=== PATIENT | male | born 1945 | race Caucasian/White ===

== ENCOUNTER 2018-10-28 14:30 | Outpatient (CLI) | payer OTHER ==
[~2018-10-28] VITALS: Ht 188 cm; Wt 117.9 kg
[~2018-10-28 14:30] MED LIST: FLUO15CR8 TP; GLYB5TAB6 PO; INSU100V6 SQ; LOSA50TA6 PO; MTF500T PO; SIMV80TA3 PO; TRAZ-144 PO; [UNRECOGNIZED DRUG - CODE] MC
[2018-10-28] MEDS ORDERED: INSU100I10 SQ (14:49)
[2018-10-28] MEDS ORDERED: CARB1TAB41 PO (14:49)
[2018-10-28] MEDS ORDERED: ALOG25TA2 PO (14:49)
[2018-10-28] MEDS ORDERED: TRAZ-190 PO (14:49)
[2018-10-28] MEDS ORDERED: AMAN100T PO (14:49)
[2018-10-28] MEDS ORDERED: LOSA100T57 PO (14:49)
[2018-10-28] MEDS ORDERED: ATOR80TA76 PO (14:53)
== END 2018-10-28 14:56 | disposition home or self-care (01) ==
LOC: PREOP 14:30
PROVIDERS: ATTEND Surgery
DX: Z01.818 Encounter for other preprocedural examination (principal)

== ENCOUNTER 2018-11-10 07:51 | Day surgery (SDC) | payer OTHER ==
[~2018-11-10] VITALS: Ht 188 cm; Wt 117.9 kg
[~2018-11-10 07:51] MED LIST changes: +ALOG25TA2 PO; +AMAN100T PO; +ATOR80TA76 PO; +CARB1TAB41 PO; +INSU100I10 SQ; +LOSA100T57 PO; +TRAZ-190 PO
--- OUTSIDE RECORDS SUMMARY | 2018-11-10 07:55 | XMS REPORT | Continuity of Care Document ---
Author Organization Unknown Address Unknown Allergies Active Description Code Type Severity Reaction Onset Reported/Identified Relationship to Patient Clinical Status Yes No Known Drug Allergies [id number] Drug Allergy Unknown N/A 01/17/2014 Medications There is no data. Problems Date Dx Coded Attending Type Code Diagnosis Diagnosed By 01/17/2014 ARIES EMMANUEL, ALEXANDRA Vásquez Ot 250.00 DIAB KATHIA WO COMPL, TYPE II OR UNSPEC TY 01/17/2014 ALEXANDRA CHRIS MD Ot 562.10 DIVERTICULOSIS COLON (W/O MENT OF HEMORR 01/17/2014 ALEXANDRA CHRIS MD Ot V12.72 PERSONAL HISTORY OF COLONIC POLYPS 09/20/2015 ALEXANDRA CHRIS MD Ot V72.84 EXAM PRE-OPERATIVE NOS 11/24/2015 JOSH WHATLEY MD Ot I10 ESSENTIAL (PRIMARY) HYPERTENSION 11/24/2015 JOSH WHATLEY MD Ot Z02.89 ENCOUNTER FOR OTHER ADMINISTRATIVE EXAMI 11/24/2015 JOSH WHATLEY MD Ot Z87.891 PERSONAL HISTORY OF NICOTINE DEPENDENCE 12/22/2015 ALEXANDRA CHRIS MD Ot V72.84 EXAM PRE-OPERATIVE NOS 12/22/2015 JOSH WHATLEY MD Ot I10 ESSENTIAL (PRIMARY) HYPERTENSION 12/22/2015 JOSH WHATLEY MD Ot Z02.89 ENCOUNTER FOR OTHER ADMINISTRATIVE EXAMI 12/22/2015 JOSH WHATLEY MD Ot Z87.891 PERSONAL HISTORY OF NICOTINE DEPENDENCE 10/28/2018 RENETTA ALVARADO DO Ot Z01.818 ENCOUNTER FOR OTHER PREPROCEDURAL EXAMIN Procedures There is no data. Results There is no data. Encounters ACCT No. Visit Date/Time Discharge Status Pt. Type Provider Facility Loc./Unit Complaint [id number] 11/03/2018 12:00:00 11/03/2018 23:59:59 CLS Preadmit RENETTA ALVARADO DO [facility] ENDO SCREENING [id number] 10/28/2018 14:30:00 10/28/2018 14:56:00 DIS Outpatient RENETTA ALVARADO DO [facility] PREOP COLONOSCOPY [id number] 09/20/2015 08:05:00 09/20/2015 23:59:59 CLS Outpatient CHACORTA EMMANUEL, JOSH Patel [facility] RAD [id number] 01/17/2014 08:17:00 01/17/2014 11:10:00 DIS Outpatient ALEXANDRA CHRIS MD [facility] [id number] 01/13/2014 08:18:00 01/13/2014 23:59:59 CLS Outpatient ALEXANDRA CHRIS MD [facility] PRE
[2018-11-10] MEDS ORDERED: LACTATED RINGERS 1,000 ML IV ONE (07:56)
[2018-11-10] MEDS ORDERED: LACTATED RINGERS 1,000 ML IV STA (08:26)
[2018-11-10 08:29] VITALS: BP 167/87
[2018-11-10] MEDS ORDERED: GLYCOPYRROLATE 0.2 MG/ML (ROBINUL) 2 ML VIAL ONE (09:04)
[2018-11-10] MEDS ORDERED: PROPOFOL INJECTION 0 ML IV ONE (09:11)
--- NOTE | 2018-11-10 09:33 | Progress Note-Post Operative ---
Post-Operative Progess Note Surgeon (s)/Batt Packer (s) Surgeon RENETTA ALVARADO DO Batt Packer: na Pre-Operative Diagnosis family history colon cancer Post-Operative Diagnosis ascending colon mass, colon polps Procedure & Operative Findings Date of Procedure 11/10/18 Procedure Performed/Findings colonoscopy with cold biopsies ascending colon mass, hot bx polypectomy hepatic and transverse colon polyps Anesthesia Type per automatic packer operator Estimated Blood Loss Estimated blood loss (mL): scant Specimens/Packing Specimens Removed ascending colon mass, hepatic flexure polyp, transverse colon polyp RENETTA ALVARADO DO Nov 10, 2018 09:33
--- NOTE | 2018-11-10 09:34 | Discharge Inst-Simple/Standard ---
Discharge Inst-Standard Patient Instructions/Follow Up Plan of Care/Instructions/FU: 2 weeks Nba Activity as Tolerated: Yes Discharge Diet: Regular Diet RENETTA ALVARADO DO Nov 10, 2018 09:34
[2018-11-10 09:50] VITALS: BP 126/74
[2018-11-10 10:10] VITALS: BP 146/80
--- NOTE | 2018-11-10 14:00 | Anesthesia-General Post-Op ---
MAC Patient Condition Mental Status/LOC: Same as Preop Cardiovascular: Satisfactory Nausea/Vomiting: Absent Respiratory: Satisfactory Pain: Controlled Complications: Absent Post Op Complications Complications None Follow Up Care/Instructions Patient Instructions None needed. Anesthesiology Discharge Order Discharge Order Patient was seen this morning after the procedure and he was doing well, no complaints, stable vital signs, no apparent adverse anesthesia problems. KURT HERRERA DO Nov 10, 2018 14:00
--- NOTE | 2018-11-10 15:05 | OPERATIVE REPORT ---
DATE OF SERVICE: 11/10/2018 PREOPERATIVE DIAGNOSIS: Family history of colon cancer. POSTOPERATIVE DIAGNOSES: Ascending colon mass, colon polyps. PROCEDURE: Colonoscopy with cold biopsy of the ascending colon mass and hot biopsy polypectomy of hepatic, transverse colon polyps. SURGEON: Renetta Arango DO ANESTHESIA: Per SENIOR GRADUATE ADVISOR. ESTIMATED BLOOD LOSS: Scant. COMPLICATIONS: None. INDICATIONS: The patient is a 73-year-old male with need for screening colonoscopy due to family history of colon cancer. He understands and wishes to proceed with procedure. Consent was signed and on the chart. PROCEDURE IN DETAIL: The patient was taken to the endoscopy suite, placed in left lateral recumbent position. Timeout was performed. Digital rectal exam was performed. There were no palpable polyps, masses or ulcerations. Scope was inserted into the rectum and advanced all the way to the cecum with minimal difficulty. Prep was adequate. There were no polyps, masses or ulcerations in the cecum. Just above the cecum, a large flat mass present. Multiple cold biopsies were obtained of hard nonmobile mass in ascending colon. Scope was then continued to slowly retracted back and hepatic flexure, small polyp was present, which hot biopsy polypectomy was performed. Scope was continued to be slowly retracted back, which another small polyp was encountered, which hot biopsy polypectomy was performed. Scope was continued to be slowly retracted back to the remainder of the transverse colon, descending colon and sigmoid colon without finding any other polyps, masses or ulcerations. Once in the rectum, scope was retroflexed noting no other pathology. Scope was returned to its normal position, slowly withdrawn until completely removed. The patient tolerated procedure well without any complications and taken to recovery room in stable condition. RECOMMENDATIONS: The patient will follow up in office in two weeks to discuss pathology results. The patient will need a right colon resection in order to remove the mass. We will discuss outpatient followup visit. Job ID: [id number] DocumentID: [id number] Dictated Date: 11/10/2018 09:39:13 Farm Hand Date: 11/10/2018 15:04:30 Dictated By: RENETTA ARANGO DO [facility]
== END 2018-11-10 10:35 | disposition home or self-care (01) ==
LOC: ENDO 07:51
PROVIDERS: ATTEND Surgery
DX: Z12.11 Encounter for screening for malignant neoplasm of colon (principal); D12.2 Benign neoplasm of ascending colon; D12.3 Benign neoplasm of transverse colon; Z80.0 Family history of malignant neoplasm of digestive organs; E11.9 Type 2 diabetes mellitus without complications; I10 Essential (primary) hypertension; E78.5 Hyperlipidemia, unspecified; M19.91 Primary osteoarthritis, unspecified site; G20 Parkinson's disease; Z79.4 Long term (current) use of insulin; Z79.899 Other long term (current) drug therapy
CPT/HCPCS: 82962; 88305

== ENCOUNTER 2018-12-08 14:01 | Outpatient (CLI) | payer OTHER ==
[~2018-12-08] VITALS: Ht 188 cm; Wt 115.7 kg
[~2018-12-08 14:01] MED LIST changes: -ASCO-262 PO; -CHOL20003 PO; -FLUT16SP22 NS; -GLIP10TA13 PO; -HYDR12.56 PO; -NICO4GUM31 BC; -SILD100T67 PO; -ST.300CA PO
[2018-12-08 14:14] VITALS: BP 146/67
[2018-12-08 14:59] LABS: BASOPHILS % (AUTO) 0 % (0-10); EOSINOPHILS # (AUTO) 0.1 10^3/uL (0.0-0.3); EOSINOPHILS % (AUTO) 1 % (0-10); HEMATOCRIT 36 % (40-54); LYMPHOCYTES # (AUTO) 1.9 X 10^3 (1.0-4.0); LYMPHOCYTES % (AUTO) 23 % (12-44); MEAN CORPUSCULAR HEMOGLOBIN 25 PG (25-34); MEAN CORPUSCULAR HGB CONC 31 G/DL (32-36); MEAN CORPUSCULAR VOLUME 80 FL (80-99); MEAN PLATELET VOLUME 9.5 FL (7.4-10.4); MONOCYTES # (AUTO) 0.5 X 10^3 (0.0-1.0); MONOCYTES % (AUTO) 7 % (0-12); NEUTROPHILS # (AUTO) 5.7 X 10^3 (1.8-7.8); NEUTROPHILS % (AUTO) 69 % (42-75); PLATELET COUNT 311 10^3/uL (130-400); RED CELL DISTRIBUTION WIDTH 14.4 % (10.0-14.5); WHITE BLOOD COUNT 8.2 10^3/uL (4.3-11.0)
== END 2018-12-08 14:45 | disposition home or self-care (01) ==
LOC: PREOP 14:01
PROVIDERS: ATTEND Surgery
DX: Z01.812 Encounter for preprocedural laboratory examination (principal); C18.9 Malignant neoplasm of colon, unspecified
CPT/HCPCS: 36415; 85025; 87081

== ENCOUNTER → 2018-12-08 | Outpatient (CLI) | payer OTHER ==
[~2018-12-08] MED LIST changes: +ASCO-262 PO; +CHOL20003 PO; +FLUT16SP22 NS; +GLIP10TA13 PO; +HYDR12.56 PO; +NICO4GUM31 BC; +SILD100T67 PO; +ST.300CA PO
--- NOTE | 2018-12-08 14:57 | Diagnostic Imaging Report ---
INDICATION: Adenocarcinoma of the colon, initial staging. TECHNIQUE: Serum blood glucose level at the time of injection is 125 mg/dL. Patient was administered 13.0 mCi F-18 FDG intravenously in the left forearm and PET imaging from the top of skull through the mid thighs was performed. Noncontrast CT was also performed for attenuation correction and anatomic correlation. COMPARISON: No prior studies are available for comparison. FINDINGS: There is symmetric activity throughout the brain. Soft tissues of the neck are unremarkable. No suspicious hypermetabolism in the mediastinum or ai is seen. Pulmonary parenchyma is unremarkable. Imaging through the abdomen and pelvis demonstrates physiologic activity within the GI and tracts. No suspicious hypermetabolism is seen. There is no evidence of hypermetabolic abdominal or pelvic lymphadenopathy. IMPRESSION: Unremarkable PET/CT study. Dictated by: Dictated on workstation # [id number]
== END ==
LOC: RAD 10:23
PROVIDERS: ATTEND Surgery
DX: C18.9 Malignant neoplasm of colon, unspecified (principal)

== ENCOUNTER 2018-12-10 09:19 | Inpatient (IN) | payer OTHER ==
[~2018-12-10] VITALS: Ht 188 cm; Wt 115.7 kg
[2018-12-10] VITALS (11 sets, daily range): BP systolic 128–177; BP diastolic 73–85
[2018-12-10] MEDS ORDERED: LACTATED RINGERS 1,000 ML IV PRN (09:21)
--- OUTSIDE RECORDS SUMMARY | 2018-12-10 09:24 | XMS REPORT | Continuity of Care Document ---
Author Organization Unknown Address Unknown Allergies Active Description Code Type Severity Reaction Onset Reported/Identified Relationship to Patient Clinical Status Yes No Known Drug Allergies [id number] Drug Allergy Unknown N/A 11/10/2018 Medications There is no data. Problems Date [...] Ot Z01.818 ENCOUNTER FOR OTHER PREPROCEDURAL EXAMIN 11/16/2018 RENETTA ALVARADO DO Ot D12.2 BENIGN NEOPLASM OF ASCENDING COLON 11/16/2018 RENETTA ALVARADO DO Ot D12.3 BENIGN NEOPLASM OF TRANSVERSE COLON 11/16/2018 RENETTA ALVARADO DO Ot E11.9 TYPE 2 DIABETES MELLITUS WITHOUT COMPLIC 11/16/2018 RENETTA ALVARADO DO Ot E78.5 HYPERLIPIDEMIA, UNSPECIFIED 11/16/2018 ALVARADO RENETTA Cresencio Ot G20 PARKINSON'S DISEASE 11/16/2018 ALVARADO RENETTA Ot I10 ESSENTIAL (PRIMARY) HYPERTENSION 11/16/2018 ALVARADO RENETTA Cresencio Ot M19.91 PRIMARY OSTEOARTHRITIS, UNSPECIFIED SITE 11/16/2018 RENETTA ALVARADO DO Cresencio Ot Z12.11 ENCOUNTER FOR SCREENING FOR MALIGNANT NE 11/16/2018 ALVARADO RENETTA ARELLANO Ot Z79.4 SENIOR CARE (CURRENT) USE OF INSULIN 11/16/2018 ALVARADO RENETTA Ot Z79.899 OTHER SENIOR CARE (CURRENT) DRUG THERAPY 11/16/2018 ALVARADO RENETTA ARELLANO Cresencio Ot Z80.0 FAMILY HISTORY OF MALIGNANT NEOPLASM OF Procedures There is no data. Results Test Result Range Capillary blood glucose measurement by glucometer (mass/volume) - 11/10/18 08:10 Capillary blood glucose measurement by glucometer (mass/volume) 176 mg/dL 70-110 Complete blood count (CBC) with automated white blood cell (WBC) differential - 12/08/18 14:45 Blood leukocytes automated count (number/volume) 8.2 10*3/uL 4.3-11.0 Blood erythrocytes automated count (number/volume) 4.48 10*6/uL 4.35-5.85 Venous blood hemoglobin measurement (mass/volume) 11.0 g/dL 13.3-17.7 Blood hematocrit (volume fraction) 36 % 40-54 Automated erythrocyte mean corpuscular volume 80 [foz_us] 80-99 Automated erythrocyte mean corpuscular hemoglobin (mass per erythrocyte) 25 pg 25-34 Automated erythrocyte mean corpuscular hemoglobin concentration measurement (mass/volume) 31 g/dL 32-36 Automated erythrocyte distribution width ratio 14.4 % 10.0- 14.5 Automated blood platelet count (count/volume) 311 10*3/uL 130-400 Automated blood platelet mean volume measurement 9.5 [foz_us] 7.4-10.4 Automated blood neutrophils/100 leukocytes 69 % 42-75 Automated blood lymphocytes/100 leukocytes 23 % 12-44 Blood monocytes/100 leukocytes 7 % 0-12 Automated blood eosinophils/100 leukocytes 1 % 0-10 Automated blood basophils/100 leukocytes 0 % 0-10 Blood neutrophils automated count (number/volume) 5.7 10*3 1.8-7.8 Blood lymphocytes automated count (number/volume) 1.9 10*3 1.0-4.0 Blood monocytes automated count (number/volume) 0.5 10*3 0.0- 1.0 Automated eosinophil count 0.1 10*3/uL 0.0-0.3 Automated blood basophil count (count/volume) 0.0 10*3/uL 0.0-0.1 Methicillin resistant Staphylococcus aureus (MRSA) screening culture - 12/08/18 14:45 Methicillin resistant Staphylococcus aureus (MRSA) screening culture NEG NRG Encounters ACCT No. Visit Date/Time Discharge Status Pt. Type Provider Facility Loc./Unit Complaint [id number] 12/08/2018 14:01:00 12/08/2018 14:45:00 DIS Outpatient RENETTA ALVARADO DO [facility] PREOP COLON CANCER [id number] 11/10/2018 07:51:00 11/10/2018 10:35:00 DIS Outpatient RENETTA ALVARADO DO [facility] ENDO SCREENING [id number] 10/28/2018 14:30:00 10/28/2018 14:56:00 DIS Outpatient RENETTA ALVARADO DO [facility] PREOP COLONOSCOPY [id number] 09/20/2015 08:05:00 09/20/2015 23:59:59 CLS Outpatient JOSH WHATLEY MD [facility] RAD [id number] 01/17/2014 08:17:00 01/17/2014 11:10:00 DIS Outpatient ALEXANDRA CHRIS MD [facility] [id number] 01/13/2014 08:18:00 01/13/2014 23:59:59 CLS Outpatient ALEXANDRA CHRIS MD [facility] PREOP [id number] 12/10/2018 11:20:00 PEN Preadmit RENETTA ALVARADO DO COLON CANCER [id number] 12/08/2018 10:23:00 ACT Outpatient RENETTA ALVARADO DO [facility] RAD ADENO CARCINOMA OF COLON
[2018-12-10] MEDS ORDERED: BUP/EPI 0.5% 1:200,000 (SENSORCAINE) 30 ML VIAL ONE (09:25)
[2018-12-10] MEDS ORDERED: ceFAZolin 2 GM/50 ML NS 50 ML IV ONE (09:30)
[2018-12-10] MEDS ORDERED: metroNIDAZOLE 500MG/100ML IVPB 100 ML IV ONE (09:30)
--- NOTE | 2018-12-10 09:47 | Progress Note-Pre Operative ---
Pre-Operative Progress Note H&P Reviewed The H&P was reviewed, patient examined and no changes noted. Date Seen by Provider: Dec 10, 2018 Time Seen by Provider: 09:46 Date H&P Reviewed: Dec 10, 2018 Time H&P Reviewed: 09:47 Pre-Operative Diagnosis: right colon cancer RENETTA ALVARADO DO Dec 10, 2018 09:47
[2018-12-10] MEDS ORDERED: SEVOFLURANE (ULTANE) 15 ML INHAL SOLN ONE (11:04)
[2018-12-10] MEDS ORDERED: MIDAZOLAM 2 MG/2 ML (VERSED) VIAL ONE (11:04)
[2018-12-10] MEDS ORDERED: LIDOCAINE PF 2% 5 ML (XYLOCAINE) VIAL ONE (11:04)
[2018-12-10] MEDS ORDERED: ROCURONIUM 10 MG/ML 5 ML SYRINGE IV ONE ×2 (11:04→12:08)
[2018-12-10] MEDS ORDERED: ONDANSETRON 4 MG/2 ML (SDV) Z0FRAN ONE (11:04)
[2018-12-10] MEDS ORDERED: proPOfol 200 MG/20 ML (DIPRIVAN) VIAL IV ONE (11:04)
[2018-12-10] MEDS ORDERED: fentaNYL INJECTION 100 MCG/2 ML AMP ONE (11:04)
[2018-12-10] MEDS ORDERED: fentaNYL INJECTION 250 MCG/5 ML AMP ONE (12:07)
[2018-12-10] MEDS ORDERED: BUPIVACAINE 0.5% 30 ML (SENSORCAINE) VIAL ONE (12:56)
[2018-12-10] MEDS ORDERED: morphine INJ 10 MG/ML 1ML (SYR OR VIAL) IVP ONE (13:30)
[2018-12-10] MEDS ORDERED: ONDANSETRON 4 MG/2 ML (SDV) Z0FRAN IVP PRN (13:30)
[2018-12-10] MEDS ORDERED: HYDROmorphone 2 MG/ML VIAL (DILAUDID) IV ONE (13:30)
[2018-12-10] MEDS ORDERED: morphine INJ 10 MG/ML 1ML (SYR OR VIAL) ONE (13:33)
[2018-12-10] MEDS ORDERED: HYDROmorphone 2 MG/ML VIAL (DILAUDID) ONE (13:50)
--- NOTE | 2018-12-10 14:25 | NUR ---
KUHNSTEFFANIE admitted to room 425, with an admitting diagnosis of colon resection, on 12/10/18 from OR via stretcher, accompanied by BILLY Pablo. STEFFANIE KUHN introduced to surroundings, call light, bed controls, phone, TV, temperature control, lights, meal times, smoking policy, visitor policy, side rail policy, bathrooms and showers. Patient Rights given to patient in the handbook. STEFFANIE KUHN verbalizes understanding that [facility] is not responsible for the loss or damage to any personal effects or valuables that are kept in the patients possession during their hospitalization. STEFFANIE KUHN verbalizes understanding of Interdisciplinary Patient Education. Patient was informed about the Rapid Response Team and its purpose. Report received from BILLY Pablo. This RN will assume pt care at this time.
--- NOTE | 2018-12-10 14:46 | Progress Note-Post Operative ---
Post-Operative Progess Note Surgeon (s)/Repairer Wood Furniture (s) Surgeon RENETTA ALVARADO DO Repairer Wood Furniture: Dr. Cameron Pre-Operative Diagnosis right colon cancer Post-Operative Diagnosis same Procedure & Operative Findings Date of Procedure 12/10/18 Procedure Performed/Findings lap hand assisted right colon resection with mobilization of hepatic flexure. Anesthesia Type gen Estimated Blood Loss Estimated blood loss (mL): min Specimens/Packing Specimens Removed right colon RENETTA ALVARADO DO Dec 10, 2018 14:46
[2018-12-10] MEDS ORDERED: morphine INJ 10 MG/ML 1ML (SYR OR VIAL) IVP PRN (15:00)
[2018-12-10] MEDS ORDERED: ONDANSETRON 4 MG/2 ML (SDV) Z0FRAN IV PRN (15:00)
--- NOTE | 2018-12-10 15:20 | NUR ---
DR NEAL NOTIFIED BY THIS RN FOR A MEDICAL CONSULT FROM DR ALVARADO.
[2018-12-10] MEDS: HYDROcodone/APAP 5 MG/325 MG (LORTAB) TAB PO PRN (15:42)
[2018-12-10] MEDS: LACTATED RINGERS 1,000 ML IV SCH ×2 (15:43→22:57)
[2018-12-10] MEDS ORDERED: morphine INJ 4 MG/ML 1 ML (VIAL/SYRINGE) IV PRN (15:45)
[2018-12-10] MEDS ORDERED: ASCO-262 PO (16:09)
[2018-12-10] MEDS ORDERED: CHOL20003 PO (16:09)
[2018-12-10] MEDS ORDERED: ST.300CA PO (16:09)
[2018-12-10] MEDS ORDERED: HYDR12.56 PO (16:09)
--- NOTE | 2018-12-10 16:32 | NUR ---
SPOKE WITH THE PATIENT ABOUT HIS MEDICATIONS. THEY WERE UPDATED IN PREOP HOWEVER HE TOLD THE NURSE HE FELT HIS LIST WAS MISSING SOME. HE GETS HIS MEDS FROM THE [facility]. I HAVE SENT A FAX REQUEST TO [facility] FOR A LIST OF MEDS AND CALLED THE [facility], THE FAX TO THEM KEEPS FAILING. THEY ARE CLOSED FOR THE DAY BUT I WILL VERIFY IT IN THE MORNING AFTER RECORDS ARE REVIEWED. HE STATES HE TAKES VITAMIN C DAILY, VITAMIN D DAILY, AND LULU'S WORT HS NEEDED. I ADDED THEM TO THE MED REC AT THIS TIME. Addendum: 12/11/18 at 1339 by KRZYSZTOF CARMEN [facility] RECEIVED MED LIST FROM [facility] AT THIS TIME. THERE WERE A COUPLE OF MEDICATIONS ON THAT LIST THAT WERE NOT ON THE MED REC, I VERIFIED WITH THE PATIENT AND UPDATED THE MED REC ACCORDINGLY. [facility]: 12-09-18 GLIPIZIDE 10MG BID #180 12-07-18 LOSARTAN 100MG DAILY #90 12-04-18 ALOGLIPTIN 25MG DAILY #90 11-26-18 FLUTICASONE NASAL 2 SPRAYS NS DAILY (USES PRN) 11-23-18 INSULIN GLARGINE 45 UNITS HS #4 (STATES HE USES 56 UNITS HS) 11-03-18 SILDENAFIL CITRATE 100MG UD #12 10-20-18 CARBIDOPA LEVODOPA SA 50-200MG QID #360 10-14-18 ATORVASTATIN 80MG 1/2 HS #45 09-11-18 NICOTINE 4MG LOZENGE PRN #162 08-25-18 AMANTADINE 100MG 1/2 BID #90 (NEWER ONE ALSO LISTED BUT RELEASE DATE IS BLANK) 12-16-17 TRAZODONE 100MG 2 HS #180 [facility] FILLED: 11-04-18 HCTZ 12.5MG DAILY #90 OTC MEDS: VITAMIN C DAILY VITAMIN D3 [address] [facility] PRN Addendum: 12/16/18 at 1012 by KRZYSZTOF CARMEN [facility] PATIENT ONLY TAKES 1 TRAZODONE, TWO IS TOO MUCH. HE ALSO USES 55 UNITS OF LANTUS NOT 56 LIKE REPORTED ABOVE.
[2018-12-10] MEDS: ceFAZolin INJECTION 1,000 MG in WATER (STERILE) FOR INJECTION 10 ML IV SCH (17:41)
[2018-12-10] MEDS: metroNIDAZOLE 500MG/100ML IVPB 100 ML IV SCH (17:41)
[2018-12-11 00:33] VITALS: BP 135/75
[2018-12-11] MEDS: ceFAZolin INJECTION 1,000 MG in WATER (STERILE) FOR INJECTION 10 ML IV SCH ×2 (02:20→12:15)
[2018-12-11] MEDS: metroNIDAZOLE 500MG/100ML IVPB 100 ML IV SCH ×2 (02:44→12:15)
[2018-12-11] MEDS: ONDANSETRON 4 MG/2 ML (SDV) Z0FRAN IV PRN ×2 (02:44→07:45)
[2018-12-11 04:00] VITALS: BP 172/82
--- NOTE | 2018-12-11 05:19 | OPERATIVE REPORT ---
DATE OF SERVICE: 12/10/2018 PREOPERATIVE DIAGNOSIS: Right colon cancer. POSTOPERATIVE DIAGNOSIS: Right colon cancer. PROCEDURE: Laparoscopic hand-assisted right colon resection with mobilization of the hepatic flexure. SURGEON: Arian Arango DO EXTRUSION TECHNICIAN: Christian Cameron DO, assisted in retraction, dissection and closure. ANESTHESIA: General. ESTIMATED BLOOD LOSS: Minimal. COMPLICATIONS: None. INDICATIONS: The patient is a 73-year-old male, who recently diagnosed with right colon cancer. He understands risks and benefits of procedure and wished to proceed with procedure. Consent was signed and on the chart. DESCRIPTION OF PROCEDURE: The patient was taken to the operating suite. He was prepped and draped in sterile fashion. Surgical pause was performed. Midline incision was made for hand-port placement on the abdomen. The subcutaneous tissues and the fascia were then divided just large enough for the hand port to be placed. A 12 mm trocar was placed in subxiphoid region under open visualization. Once these 2 ports were placed, the abdomen was then insufflated. Under direct visualization of the laparoscope, a 5 mm trocar was placed in the suprapubic region. The right colon was then grasped and started to be retracted and was mobilized along the white line of Toldt, mobilizing the colon to its midline position. The hepatic flexure had to be taken down as well, which was taken down with a LigaSure. Once the right colon and hepatic flexure were mobilized, the colon, small bowel were then brought out through the hand-port incision and an Endo-JUAN 75 stapler was fired across the distal ileum and also the colon distal to the colon mass that was palpable. LigaSure was then used to divide the mesentery from the colon. An ileocolonic anastomosis was in a [id number] fashion was then created in the usual fashion using a linear JUAN-75 blue sangeetha. Hemostasis was achieved. The anastomosis was then placed back within the abdomen. Crotch stitches were placed as well. The fascia of the hand port was then closed using 1-0 looped PDS. The abdomen was reinsufflated, which demonstrated adequate closure. The abdomen was inspected. There are no other pathology except for a cyst that appeared simple on the right lobe of the liver. The abdomen was then desufflated and the trocars were removed. The skin was then closed using sangeetha. The abdomen washed and dried and sterile bandages were applied. The patient tolerated procedure well without any complications, taken to recovery room in stable condition. Job ID: [id number] DocumentID: [id number] Dictated Date: 12/10/2018 22:44:48 Floor Trader Date: 12/11/2018 05:19:15 Dictated By: DO CATHERINE RICH
[2018-12-11 06:50] LABS: BASOPHILS % (AUTO) 0 % (0-10); EOSINOPHILS % (AUTO) 0 % (0-10); HEMATOCRIT 34 % (40-54); HEMOGLOBIN 10.2 G/DL (13.3-17.7); LYMPHOCYTES # (AUTO) 0.8 X 10^3 (1.0-4.0); LYMPHOCYTES % (AUTO) 6 % (12-44); MEAN CORPUSCULAR HEMOGLOBIN 24 PG (25-34); MEAN CORPUSCULAR HGB CONC 30 G/DL (32-36); MEAN CORPUSCULAR VOLUME 80 FL (80-99); MEAN PLATELET VOLUME 9.6 FL (7.4-10.4); MONOCYTES # (AUTO) 0.7 X 10^3 (0.0-1.0); MONOCYTES % (AUTO) 5 % (0-12); NEUTROPHILS # (AUTO) 11.2 X 10^3 (1.8-7.8); NEUTROPHILS % (AUTO) 89 % (42-75); PLATELET COUNT 302 10^3/uL (130-400); RED CELL DISTRIBUTION WIDTH 14.9 % (10.0-14.5); WHITE BLOOD COUNT 12.6 10^3/uL (4.3-11.0)
[2018-12-11] MEDS: LACTATED RINGERS 1,000 ML IV SCH (07:05)
[2018-12-11 07:06] LABS: ALANINE AMINOTRANSFERASE 18 U/L (0-55); ALBUMIN 3.1 GM/DL (3.2-4.5); ALKALINE PHOSPHATASE 90 U/L (40-136); BILIRUBIN,TOTAL 0.5 MG/DL (0.1-1.0); BUN/CREATININE RATIO 14; CALCIUM 9.3 MG/DL (8.5-10.1); CARBON DIOXIDE 18 MMOL/L (21-32); CHLORIDE 105 MMOL/L (98-107); CREATININE SERUM 1.01 MG/DL (0.60-1.30); GFR ESTIMATED > 60; GLUCOSE 248 MG/DL (70-105); POTASSIUM 4.3 MMOL/L (3.6-5.0); SODIUM 137 MMOL/L (135-145); TOTAL PROTEIN 6.3 GM/DL (6.4-8.2)
[2018-12-11 07:51] VITALS: BP 152/77
[2018-12-11] MEDS ORDERED: PROMETHAZINE INJ 25 MG/ML (PHENERGAN) AMP IVP PRN (09:00)
[2018-12-11] MEDS: PANTOPRAZOLE 40 MG (PROTONIX) VIAL IV SCH (09:31)
--- NOTE | 2018-12-11 09:54 | Consultation - Hospitalist ---
HPI History of Present Illness: HPI/Chief Complaint CC: Medical management following right colectomy History of present illness: This is a 73-year-old white male [facility] and the [place], [place] who had an uncomplicated right colectomy due to colon cancer by Dr. Arango and Dr. Arteaga. I think consulted for medical management. Currently his abdominal pain is much better he is sitting up in a chair and his family is at the bedside. He denied shortness of breath or chest pain and I review his labs and vital signs. I reviewed his past medical history and home medications. He has been using the incentive spirometer. He does have a Oglesby catheter in place. Source: patient Exam Limitations: no limitations Date Seen 12/11/18 Attending Physician Arian Arango DO PCP Dania Santos MD Referring Physician Date of Admission Dec 10, 2018 at 09:19 Home Medications & Allergies Home Medications Reviewed patient Home Medication Reconciliation performed by pharmacy medication reconciliations breeding technician and/or nursing. Patients Allergies have been reviewed. 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[email or web address]) Alcohol Use: Denies Use Recreational Drug Use: No Smoking Status: Former Smoker Physical Abuse Screen: No Sexual Abuse: No Recent Foreign Travel: No Contact w/other who traveled: No Recent Hopitalizations: No Recent Infectious Disease Expo: No Immunizations Up To Date Pediatric: No Date of Pneumonia Vaccine: Dec 09, 2015 Seasonal Allergies Seasonal Allergies: Yes Past Medical History Surgeries: Abdominal, Tonsillectomy Currently Using CPAP: No Currently Using BIPAP: No Cardiac: High Cholesterol, Hypertension Neurological: Parkinson's Disease Musculoskeletal: Arthritis Endocrine: Diabetes, Non-Insulin dep Cancer: Colon History of Blood Disorders: No Family History Cardiovascular disease 19 FATHER Completed stroke 19 MOTHER Hypertension 19 FATHER 19 MOTHER Myocardial infarction 19 FATHER Psychosocial problem 19 FATHER Respiratory disorder G8 BROTHER Thyroid disease 19 MOTHER Review of Systems Constitutional: see HPI, weakness EENTM: no symptoms reported Respiratory: no symptoms reported Cardiovascular: no symptoms reported Gastrointestinal: abdominal pain Genitourinary: other (oglesby in place) Skin: no symptoms reported Psychiatric/Neurological: No Symptoms Reported All Other Systems Reviewed Negative Unless Noted: Yes Physical Exam Physical Exam Vital Signs Vital Signs - First Documented 12/10/18 09:30 Temp 96.9 Pulse 83 Resp 18 B/P (MAP) 154/81 (105) Pulse Ox 96 O2 Delivery Room Air Capillary Refill : Height, Weight, BMI Height: 6'2.00" Weight: 255lbs. 0.0oz. 115.119988qo; 32.7 BMI Method: General Appearance: No Apparent Distress, WD/WN, Chronically ill, Obese Eyes: Bilateral Eye Normal Inspection, Bilateral Eye PERRL HEENT: PERRL/EOMI, Normal ENT Inspection, Pharynx Normal Neck: Full Range of Motion, Normal Inspection, Non Tender, Supple, Carotid Bruit Respiratory: Chest Non Tender, Lungs Clear, Normal Breath Sounds, No Accessory Muscle Use, No Respiratory Distress Cardiovascular: Regular Rate, Rhythm, No Edema, No Gallop, No JVD, No Murmur, Normal Peripheral Pulses Gastrointestinal: No Organomegaly, No Pulsatile Mass, Abnormal Bowel Sounds Back: Normal Inspection, No CVA Tenderness, No Vertebral Tenderness Extremity: Normal Capillary Refill, Normal Inspection, Normal Range of Motion, Non Tender, No Calf Tenderness, No Pedal Edema Neurologic/Psychiatric: Alert, Oriented x3, No Motor/Sensory Deficits, Normal Mood/Affect Skin: Normal Color, Warm/Dry Lymphatic: No Adenopathy Results Results/Procedures Labs Laboratory Tests 12/11/18 06:21 Patient resulted labs reviewed. Assessment/Plan Assessment and Plan Assess & Plan/Chief Complaint Assessment: Status post uncomplicated right colectomy due to colon cancer Parkinson's Hypertension Hyperlipidemia Diabetes mellitus Anemia postop Leukocytosis Plan: Pain control IV fluids Oglesby catheter DC once approved by surgery Ambulation Monitor closely Diagnosis/Problems Diagnosis/Problems (1) S/P right colectomy Status: Acute (2) Parkinsons disease Status: Chronic (3) Hypertension Qualifiers: Hypertension type: essential hypertension Qualified Codes: I10 - Essential (primary) hypertension (4) Hyperlipidemia Status: Chronic Qualifiers: Hyperlipidemia type: mixed hyperlipidemia Qualified Codes: E78.2 - Mixed hyperlipidemia (5) Diabetes mellitus Status: Chronic Qualifiers: Diabetes mellitus type: type 2 Diabetes mellitus meterman insulin use: without penitentiary use Diabetes mellitus complication status: without complication Qualified Codes: E11.9 - Type 2 diabetes mellitus without complications (6) Anemia due to acute blood loss Status: Acute (7) Leukocytosis Status: Acute Qualifiers: Leukocytosis type: leukemoid reaction Qualified Codes: D72.823 - Leukemoid reaction (8) Colon cancer Status: Chronic Qualifiers: Colon location: ascending Qualified Codes: C18.2 - Malignant neoplasm of ascending colon Clinical Quality Measures DVT/VTE Risk/Contraindication: Risk Factor Score Per Nursin RFS Level Per Nursing on Admit: 4+=Very High SAMSON NEAL DO Dec 11, 2018 09:54
--- NOTE | 2018-12-11 09:57 | NUR ---
NOTE THAT PT HAD REQUESTED THE IV PHENERGAN 12.5 MG BUT AFTER WORKING WITH P.T. AND BURPING SEVERAL TIMES HE VOICED DID NOT WANT THE IV PHENERGAN -- THIS RN WASTED IT
--- NOTE | 2018-12-11 10:17 | Physical Therapy Evaluation ---
PT Evaluation-General Medical Diagnosis Admission Date Dec 10, 2018 at 09:19 Medical Diagnosis: colon cancer Onset Date: Dec 10, 2018 Therapy Diagnosis Therapy Diagnosis: debility Height/Weight Height (Feet): 6 Height (Inches): 2.00 Weight (Pounds): 255 Weight (Ounces): 0.0 Precautions Precautions/Isolations: Fall Prevention Referral Physician: Nba Reason for Referral: Evaluation/Treatment Medical History Current History s/p colon resection Reviewed History: Yes Social History Home: Single Level Current Living Status: Spouse Prior/Core FIM Prior Level of Function Therapy Code Descriptions/Definitions Functional [place] Measure: 0=Not Assessed/NA 4=Minimal Assistance 1=Total Assistance 5=Supervision or Setup 2=Maximal Assistance 6=Modified [place] 3=Moderate Assistance 7=Complete [place] Therapy Quality Codes: 6 Independent with activity with or without an assistive device 5 Patient requires set up or clean up by helper. Patient completes activity by themselves 4 Supervision or touching assist (CGA). [place] provide cues , steadying assist 3 The helper provides less than half the effort to complete the activity 2 The helper provides more than half the effort to complete the activity 1 Dependent. The helper does all the effort to complete an activity 7 Patient refused to complete or attempt activity 9 The patient did not perform the activity before the current illness or injury 88 Not attempted due to Medical conditions or safety concerns Functional Abilities and Goals: Independent: Patient completed the activities by him/herself, with or without an assistive device, with no assistance from a helper. Needed Some Help: Patient needed partial assistance from another person to complete activities. Dependent: A helper completed the activities for the patient. Unknown: Not Applicable: Bed Mobility: 7 Transfers (B,C,W/C) (FIM): 7 Gait: 7 Indoor Mobility (Ambulation): Independent Stairs: Independent Prior Devices Use: None PT Evaluation-Current Subjective Patient is very agreeable to participate with therapy. Spouse present. Pain Numeric Pain Scale: 5-Moderate Pain Location: Lower Location Body Site: Abdomen Pain Description: Acute Objective Patient Orientation: Normal For Age Problem Solving: Good ROM/Strength ROM Lower Extremities bilateral LE WFL Strength Lower Extremities 4/5 grossly bilaterally Integumentary/Posture Integumentary refer to nursing notes Bowel Incontinence: No Bladder Incontinence: Campos Cath Posture WFL Neuromuscular (Tone, Coordination, Reflexes) grossly intact Sensory Vision: Functional Hearing: Functional Sensation Right Lower Extremit: Intact Sensation Left Lower Extremity: Intact Transfers Therapy Code Descriptions/Definitions Functional [place] Measure: 0=Not Assessed/NA 4=Minimal Assistance 1=Total Assistance 5=Supervision or Setup 2=Maximal Assistance 6=Modified [place] 3=Moderate Assistance 7=Complete [place] Transfers (B, C, W/C) (FIM): 6 Scootin Rollin Supine to/from Sit: 6 Sit to/from Stand: 6 Gait Mode of Locomotion: Walk Anticipated Mode of Locomotion: Walk Gait (FIM): 6 Distance (FIM): 3=150 ft Distance: 300' Gait Level of Assist: 6 Gait Assistive Device: FWW Comments/Gait Description safe and functional Balance Sitting Static: Normal Sitting Dynamic: Normal Standing Static: Normal Standing Dynamic: Normal Assessment/Needs 73 y.o. male, is currently at [facility] with all gross motor skills and does not require skilled therapy intervention. PT instructed patient and nursing to ambulate PRN in hallway with family. Rehab Potential: Fair PT Plan Treatment/Plan Treatment Plan: Discontinue PT, goals met Treatment Plan: Other Treatment Duration: Dec 11, 2018 Frequency: 1 time per week Estimated Hrs Per Day: .25 hour per day Patient and/or Family Agrees t: Yes Discharge Recommendations Therapy D/C Recommendations: Home w/ Family Support Time/GCodes Time In: 925 Time Out: 940 Total Billed Treatment Time: 15 Total Billed Treatment 1 visit EVLowC 15 min VESTA VELASQUEZ PT Dec 11, 2018 10:17
[2018-12-11 12:36] VITALS: BP 128/73
[2018-12-11] MEDS ORDERED: NICO4GUM31 BC (13:26)
[2018-12-11] MEDS ORDERED: GLIP10TA13 PO (13:26)
[2018-12-11] MEDS ORDERED: SILD100T67 PO (13:26)
[2018-12-11] MEDS ORDERED: FLUT16SP22 NS (13:26)
--- NOTE | 2018-12-11 13:39 | Anesthesia-General Post-Op ---
General Patient Condition Mental Status/LOC: Same as Preop Cardiovascular: Satisfactory Nausea/Vomiting: Absent Respiratory: Satisfactory Pain: Controlled Complications: Absent Post Op Complications Complications None Follow Up Care/Instructions Patient Instructions None needed. Anesthesia/Patient Condition Patient Condition Patient is doing well, no complaints, stable vital signs, no apparent adverse anesthesia problems. No complications reported per nursing. SHERRY SANCHEZ CRNA Dec 11, 2018 13:39
--- NOTE | 2018-12-11 15:10 | Progress Note - Surgery ---
Subjective Date Seen by a Provider: Dec 11, 2018 Time Seen by a Provider: 08:25 Subjective/Events-last exam Patient having reflux that is severe he states. Some nausea as well. Abdomen not having any significant pain. Using IS. Denies fever sweats chills shortness of breath or chest pain. Objective Exam Vital Signs Date Time Temp Pulse Resp B/P (MAP) Pulse Ox O2 Delivery O2 Flow Rate FiO2 12/11/18 12:36 99.9 89 18 128/73 (91) 91 Room Air 12/11/18 09:00 Room Air 12/11/18 07:51 97.8 90 18 152/77 (102) 93 Room Air 12/11/18 04:00 98.8 88 20 172/82 (112) 93 Room Air 12/11/18 00:33 98.9 89 20 135/75 (95) 91 Room Air 12/10/18 22:50 Room Air 12/10/18 20:39 Room Air 12/10/18 20:00 98.5 92 18 128/73 (91) 93 Room Air 12/10/18 16:00 97.5 94 18 156/80 (105) 93 Room Air I & O 12/11/18 07:00 Intake Total 4260 ml Output Total 1000 ml Balance 3260 ml Capillary Refill : General Appearance: No Apparent Distress, WD/WN, Chronically ill, Obese HEENT: PERRL/EOMI, Normal ENT Inspection, Pharynx Normal Neck: Full Range of Motion, Normal Inspection, Non Tender, Supple Respiratory: Chest Non Tender, No Accessory Muscle Use, No Respiratory Distress Cardiovascular: Regular Rate, Rhythm, Normal Peripheral Pulses Gastrointestinal: tenderness (minimal incisional) Extremity: Normal Capillary Refill, Normal Inspection, Normal Range of Motion, Non Tender, No Calf Tenderness, No Pedal Edema Neurologic/Psychiatric: Alert, Oriented x3, No Motor/Sensory Deficits, Normal Mood/Affect Skin: Normal Color, Warm/Dry Lymphatic: No Adenopathy Results Lab Laboratory Tests 12/10/18 16:01: Glucometer 231H 12/11/18 06:21: White Blood Count 12.6H, Red Blood Count 4.22L, Hemoglobin 10.2L, Hematocrit 34L , Mean Corpuscular Volume 80, Mean Corpuscular Hemoglobin 24L, Mean Corpuscular Hemoglobin Concent 30L, Red Cell Distribution Width 14.9H, Platelet Count 302, Mean Platelet Volume 9.6, Neutrophils (%) (Auto) 89H, Lymphocytes (%) (Auto) 6L, Monocytes (%) (Auto) 5, Eosinophils (%) (Auto) 0, Basophils (%) (Auto) 0, Neutrophils # (Auto) 11.2H, Lymphocytes # (Auto) 0.8L, Monocytes # (Auto) 0.7, Eosinophils # (Auto) 0.0, Basophils # (Auto) 0.0, Sodium Level 137, Potassium Level 4.3, Chloride Level 105, Carbon Dioxide Level 18L, Anion Gap 14, Blood Urea Nitrogen 14, Creatinine 1.01, Estimat Glomerular Filtration Rate > 60, BUN/Creatinine Ratio 14, Glucose Level 248H, Calcium Level 9.3, Corrected Calcium 10.0, Total Bilirubin 0.5, Aspartate Amino Transf (AST/SGOT) 13, Alanine Aminotransferase (ALT/SGPT) 18, Alkaline Phosphatase 90, Total Protein 6.3L, Albumin 3.1L Assessment/Plan Assessment/Plan Assessment/Plan Status post right colon resection laparoscopic hand-assisted for colon cancer Nausea and GERD postoperative anemia On clear liquid diet but told him to hold off due to the nausea and reflux. Added Protonix Added Phenergan Continue to use incentive spirometer SCDs for DVT prophylaxis await bowel function Physical therapy Clinical Quality Measures DVT/VTE Risk/Contraindication: Risk Factor Score Per Nursin RFS Level Per Nursing on Admit: 4+=Very High RENETTA ALVARADO DO Dec 11, 2018 15:10
[2018-12-11 15:59] VITALS: BP 157/72
[2018-12-11 20:02] VITALS: BP 127/71
--- NOTE | 2018-12-11 22:00 | NUR ---
THIS RN CALLED DR. PRASAD IN REGARDS TO THE PT BEING UNABLE TO VOID AND THE BLADDER SCANNER SHOWING 532 MLS IN THE BLADDER. ORDERS RECEIVED TO STRAIGHT CATH PRN PER PT DISCOMFORT. ORDERS READ BACK AND VERIFIED.
[2018-12-12 00:01] VITALS: BP 133/73
[2018-12-12 04:00] VITALS: BP 161/89
[2018-12-12 08:00] VITALS: BP 135/76
[2018-12-12] MEDS: PANTOPRAZOLE 40 MG (PROTONIX) VIAL IV SCH (08:12)
[2018-12-12 11:54] VITALS: BP 149/75
--- NOTE | 2018-12-12 14:01 | Progress Note - Hospitalist ---
Subjective HPI/CC On Admission Date Seen by Provider: Dec 12, 2018 Time Seen by Provider: 13:45 CC: Medical management following right colectomy History of present illness: This is a 73-year-old white male [facility] and the [place], [place] who had an uncomplicated right colectomy due to colon cancer by Dr. Arango and Dr. Arteaga. I think consulted for medical management. Currently his abdominal pain is much better he is sitting up in a chair and his family is at the bedside. He denied shortness of breath or chest pain and I review his labs and vital signs. I reviewed his past medical history and home medications. He has been using the incentive spirometer. He does have a Campos catheter in place. Subjective/Events-last exam patient is up ambulating with a walker. he would like to pass gas. Last night nurses had called that he had 500 mL of urine but he didn't require reinsertion of the Campos as he was able to pass his urine later. denies CP or SOA Review of Systems Neurological: Weakness Objective Exam Vital Signs Vital Signs Date Time Temp Pulse Resp B/P (MAP) Pulse Ox O2 Delivery O2 Flow Rate FiO2 12/12/18 16:00 98.0 78 18 131/62 (85) 94 Nasal Cannula 3.00 Capillary Refill : General Appearance: No Apparent Distress, WD/WN, Chronically ill, Obese HEENT: PERRL/EOMI, Normal ENT Inspection, Pharynx Normal Neck: Full Range of Motion, Normal Inspection, Non Tender, Supple Respiratory: Chest Non Tender, No Accessory Muscle Use, No Respiratory Distress Cardiovascular: Regular Rate, Rhythm, Normal Peripheral Pulses Gastrointestinal: No Organomegaly, No Pulsatile Mass, Abnormal Bowel Sounds, Distended Back: Normal Inspection, No CVA Tenderness, No Vertebral Tenderness Extremity: Normal Capillary Refill, Normal Inspection, Normal Range of Motion, Non Tender, No Calf Tenderness, No Pedal Edema Neurologic/Psychiatric: Alert, Oriented x3, No Motor/Sensory Deficits, Normal Mood/Affect Skin: Normal Color, Warm/Dry Lymphatic: No Adenopathy Results/Procedures Lab Patient resulted labs reviewed. Assessment/Plan Assessment and Plan Assess & Plan/Chief Complaint postop right hemicolectomy for cancer the colon History of hypertension Ileus-postop Parkinson's-restart Sinemet Type II diabetes on insulin currently doing well- Clinical Quality Measures DVT/VTE Risk/Contraindication: Risk Factor Score Per Nursin RFS Level Per Nursing on Admit: 4+=Very High ANITA PRASAD MD Dec 12, 2018 14:01
--- NOTE | 2018-12-12 15:41 | Progress Note - Surgery ---
Subjective Date Seen by a Provider: Dec 12, 2018 Time Seen by a Provider: 12:55 Subjective/Events-last exam patient not having any significant abdominal pain. Patient reflux and nausea improved. No flatus or bowel movement. He is ambulating and using incentive spirometer. Denies any new complaints. He did have some urinary retention last night but is urinating okay this morning. Ambulating. Objective Exam Vital Signs Date Time Temp Pulse Resp B/P (MAP) Pulse Ox O2 Delivery O2 Flow Rate FiO2 12/12/18 11:56 Nasal Cannula 2.00 12/12/18 11:54 99.0 81 20 149/75 (99) 95 Nasal Cannula 3.00 12/12/18 09:07 92 Room Air 2.00 12/12/18 08:00 99.0 76 20 135/76 (95) 97 Nasal Cannula 3.00 12/12/18 04:00 98.9 92 20 161/89 (113) 92 Nasal Cannula 2.00 12/12/18 00:01 99.2 92 20 133/73 (93) 94 Room Air 12/11/18 20:02 99.2 92 20 127/71 (89) 90 Room Air 12/11/18 20:00 Room Air 12/11/18 15:59 99.2 86 20 157/72 (100) 90 Room Air I & O 12/12/18 07:00 Intake Total 2500 ml Output Total 1350 ml Balance 1150 ml Capillary Refill : General Appearance: No Apparent Distress, WD/WN, Chronically ill, Obese HEENT: PERRL/EOMI, Normal ENT Inspection Neck: Full Range of Motion, Normal Inspection, Non Tender, Supple Respiratory: Chest Non Tender, No Accessory Muscle Use, No Respiratory Distress Cardiovascular: Regular Rate, Rhythm, Normal Peripheral Pulses Gastrointestinal: tenderness (minimal incisional, clean dry and intact no signs of infection) Extremity: Normal Capillary Refill, Normal Inspection, Normal Range of Motion, Non Tender, No Calf Tenderness, No Pedal Edema Neurologic/Psychiatric: Alert, Oriented x3, No Motor/Sensory Deficits, Normal Mood/Affect Skin: Normal Color, Warm/Dry Lymphatic: No Adenopathy Assessment/Plan Assessment/Plan Assessment/Plan Status post right colon resection laparoscopic hand-assisted for colon cancer Nausea and GERD postoperative anemia On clear liquid diet Protonix/Phenergan Continue to use incentive spirometer SCDs for DVT prophylaxis await bowel function Physical therapy Clinical Quality Measures DVT/VTE Risk/Contraindication: Risk Factor Score Per Nursin RFS Level Per Nursing on Admit: 4+=Very High RENETTA ALVARADO DO Dec 12, 2018 15:41
[2018-12-12 16:00] VITALS: BP 131/62
[2018-12-12 20:25] VITALS: BP 139/64
[2018-12-13 00:17] VITALS: BP 148/72
[2018-12-13 04:00] VITALS: BP 149/71
[2018-12-13] MEDS: SINEMET CR 50/200 (CARBIDOPA/LEVODOPA SA) TAB PO SCH ×2 (06:19→08:50)
[2018-12-13 08:00] VITALS: BP 128/70
[2018-12-13] MEDS: PANTOPRAZOLE 40 MG (PROTONIX) VIAL IV SCH (08:50)
[2018-12-13] MEDS ORDERED: ACHD5005 PO (11:21)
--- NOTE | 2018-12-13 11:25 | Discharge Inst-Simple/Standard ---
Discharge Inst-Standard Discharge Medications New, Converted or Re-Newed RX: RX on Chart Patient Instructions/Follow Up Plan of Care/Instructions/FU: 2 weeks Nba Activity as Tolerated: No Discharge Diet: Soft Diet Other Inst to Patient Follow up Appt: Make appointment for 2 week. Instructions: No lifting greater than 10 pounds. No strenuous activity. May shower in 24 hours, no tub bath or soaking. Use incentive spirometer at home as directed. No Smoking May return to work on light duty with instructions as above, as long as not taking pain medications (narcotics), and no driving on pain medications. Skin/Wound Care keep clean and dry. Symptoms to Report: Appetite Changes, Extremity Discoloration, Numbness/Tingling, Swelling Increased, Bleeding Excessive, Eyesight Changes, Pain Increased, Urine Color Change, Constipation(Persistent), Fever over 101 degree F, Pain/Pressure in chest, Urinating Difficulty, Cough Up/Vomit Blood, Heart Beat Irreg/Pounding, Pain/Pressure in jaw, Vaginal Bleeding Increase, Cramps in feet or legs, Lightheadedness, Pain/Pressure in shoulder, Diarrhea(Persistent), Memory Changes Suddenly, Questions/Concerns, Weight gain consecutive days, Dizziness/Fainting, Nausea/Vomiting, Shortness of Breath, Weight gain over 2 pounds If questions or concerns contact your physician Or seek help at emergency department. RENETTA ALVARADO DO Dec 13, 2018 11:25
[2018-12-13] MEDS: HYDROcodone/APAP 5 MG/325 MG (LORTAB) TAB PO PRN (11:58)
--- NOTE | 2018-12-13 17:50 | DISCHARGE SUMMARY ---
DATE OF SERVICE: ADMITTING PHYSICIAN: Renetta Arango DO CONSULTING PHYSICIAN: Dr. Bennett. ADMITTING DIAGNOSIS: Right colon cancer. DISCHARGE DIAGNOSES: Right colon cancer, status post right hemicolectomy, history of hypertension, postoperative ileus Parkinson's, type 2 diabetes. HOSPITAL COURSE: The patient is a 73-year-old male recently diagnosed with right colon cancer. He underwent a laparoscopic hand-assisted right colon resection. Postoperatively, he was admitted for a pain control. We awaited bowel function. He was working with physical therapy. He was ambulating. He continued to improve. He started passing flatus and had bowel movement. He is tolerating diet. The patient wanted to go home. His pain was controlled on oral pain medications. The patient is okay for discharge home. Please see hospital discharge instructions on the chart. The patient discharged home on 12/13/2018. Job ID: [id number] DocumentID: [id number] Dictated Date: 12/13/2018 15:17:57 [employer] Date: 12/13/2018 17:50:07 Dictated By: RENETTA ARANGO DO
== END 2018-12-13 12:05 | disposition home or self-care (01) | DRG 330 ==
LOC: 4TH 09:19 → SURG 09:20 → 4TH 14:25
PROVIDERS: ADMIT Surgery; ATTEND Surgery
PROC: 0DTF0ZZ Resection of Right Large Intestine, Open Approach (ICD-10-PCS; principal; 2018-12-10 11:19)
DX: C18.2 Malignant neoplasm of ascending colon (principal); K56.7 Ileus, unspecified; I10 Essential (primary) hypertension; R33.9 Retention of urine, unspecified; D50.0 Iron deficiency anemia secondary to blood loss (chronic); G20 Parkinson's disease; E11.9 Type 2 diabetes mellitus without complications; Z79.4 Long term (current) use of insulin; Z87.891 Personal history of nicotine dependence
CPT/HCPCS: 36415; 80053; 82962; 85025; 86850; 86900; 86901; 94664

== ENCOUNTER 2018-12-15 23:07 | Inpatient (IN) | payer OTHER, MEDICARE ==
[~2018-12-15] VITALS: Ht 188 cm; Wt 115.8 kg
[~2018-12-15 23:07] MED LIST changes: +ACHD5005 PO; +ASCO-262 PO; +CHOL20003 PO; +FLUT16SP22 NS; +GLIP10TA13 PO; +HYDR12.56 PO; +NICO4GUM31 BC; +SILD100T67 PO; +ST.300CA PO
--- NOTE | 2018-12-15 23:42 | ED General ---
General Chief Complaint: Dizziness/Syncope Stated Complaint: LETHARGIC,CONFUSED Nursing Triage Note: PT COMPLAINING OF A NEAR SYNCOPAL EPISODE AT HOME PRIOR TO CALLING EMS. PT HAD A RECENT COLON SURGERY AT [facility] ON FRIDAY OF LAST WEEK Nursing Sepsis Screen: No Definite Risk Source of Information: Patient, EMS History of Present Illness Date Seen by Provider: Dec 15, 2018 Time Seen by Provider: 23:13 Initial Comments 73-year-old male presenting with complaints of syncopal episode at home. He was released from the hospital on Friday after having colon resection by Dr. Alvarado at [facility]. He has had left-sided neck pain since the surgery and is worse with movement. He tonight had gotten up to use the bathroom and was feeling lightheaded and dizzy. He became faint and ended up passing out on his way to the bathroom. He had a bowel movement in the process of passing out. He feels short of breath especially with any exertion. He denies any chest pain but has had pain into the left shoulder. He also has a history of diabetes but has not been checking his blood sugars. He states that his neck pain is making it hard for him to open his mouth and eat. He had the neck pain and shortness of breath while he was in the hospital but states it wasn't as bad until he got home and has been moving around more. Allergies and Home Medications Allergies Coded Allergies: No Known Drug Allergies (Verified , 11/10/18) Home Medications Alogliptin Benzoate 25 Mg Tablet, 25 MG PO DAILY, (Reported) Amantadine HCl 100 Mg Tablet, 50 MG PO BID, (Reported) TAKES 1/2 (100MG) TABLET Ascorbate Calcium 500 Mg Tablet, 500 MG PO DAILY, (Reported) Atorvastatin Calcium 80 Mg Tablet, 40 MG PO HS, (Reported) TAKES 1/2 (80MG) TABLET Carbidopa/Levodopa 1 Each Tablet.er, 1 TAB PO QID, (Reported) Cholecalciferol (Vitamin D3) 2,000 Unit Capsule, 2,000 UNIT PO DAILY, (Reported) Fluticasone Propionate 16 Gm [place].susp, 2 SPRAYS NS DAILY PRN for ALLERGIES, (Reported) Glipizide 10 Mg Tablet, 10 MG PO BID, (Reported) Hydrochlorothiazide 12.5 Mg Tablet, 12.5 MG PO DAILY, (Reported) Hydrocodone Bit/Acetaminophen 1 Tab Tab, 1 TAB PO Q4H PRN for PAIN-MODERATE Prescribed by: RENETTA ALVARADO on 12/13/18 1121 Insulin Glargine,Hum.rec.anlog 100 Unit/1 Ml Insuln.pen, 55 UNIT SQ HS, (Reported) Losartan Potassium 100 Mg Tablet, 100 MG PO HS, (Reported) Nicotine Polacrilex 4 Mg Gum, 4 MG BC Q6H PRN for CHEW CRAVINGS, (Reported) Sildenafil Citrate 100 Mg Tablet, 100 MG PO UD PRN for ED, (Reported) [place]'s Wort 300 Mg Capsule, 300 MG PO HS PRN for SLEEP, (Reported) DOES NOT TAKE IF HE IS TAKING TRAZODONE Trazodone HCl 100 Mg Tablet, 100 MG PO HS PRN for SLEEP, (Reported) Patient Home Medication List Home Medication List Reviewed: Yes Review of Systems Review of Systems Constitutional: No chills; dizziness (tonight with activity and exertion); No fever EENTM: other (pain with opening his mouth since leaving the hospital) Respiratory: cough (mild but not bringing up anything), dyspnea on exertion Cardiovascular: No chest pain, No palpitations Gastrointestinal: abdominal pain (mild since surgery but managed with tylenol for the most part. He has taken 4-5 pain pills since discharge.), constipation (since surgery but had bowel movement tonight with syncopal episode) Genitourinary: No dysuria, No hematuria Musculoskeletal: joint pain (left shoulder pain), neck pain (on left side since surgery, worse with movement) Skin: other (healing incision to abdomen without drainage or fluctuance) Psychiatric/Neurological: Denies Anxiety, Denies Depressed Hematologic/Lymphatic: Denies Blood Clots Past Neyzlki-Hxqfpo-Vvzebj Hx Past Med/Social Hx: Reviewed Nursing Past Med/Soc Hx Patient Social History Recent Foreign Travel: No Contact w/Someone Who Travel: No Recent Infectious Disease Expo: No Recent Hopitalizations: No Immunizations Up To Date PED Vaccines UTD: No Date of Pneumonia Vaccine: Dec 09, 2015 Seasonal Allergies Seasonal Allergies: Yes Past Medical History Surgeries: Yes (lipomas removed from back; ) Abdominal, Tonsillectomy Respiratory: No Currently Using CPAP: No Currently Using BIPAP: No Cardiac: Yes High Cholesterol, Hypertension Neurological: Yes Parkinson's Disease Genitourinary: No Gastrointestinal: Yes (colon cancer) Musculoskeletal: Yes Arthritis Endocrine: Yes Diabetes, Non-Insulin dep HEENT: No (cataracts removed) Cancer: Yes Colon Psychosocial: No Integumentary: No Blood Disorders: No Family Medical History Cardiovascular disease 19 FATHER Completed stroke 19 MOTHER Hypertension 19 FATHER 19 MOTHER Myocardial infarction 19 FATHER Psychosocial problem 19 FATHER Respiratory disorder G8 BROTHER Thyroid disease 19 MOTHER Physical Exam Vital Signs Vital Signs - First Documented 12/15/18 12/16/18 23:10 02:11 Temp 97.1 Pulse 102 Resp 26 B/P (MAP) 142/105 (117) Pulse Ox 94 O2 Delivery Room Air O2 Flow Rate 2.00 Capillary Refill : Less Than 3 Seconds Height, Weight, BMI Height: 6'2.00" Weight: 260lbs. 0.0oz. 117.157449pr; 32.7 BMI Method:Stated General Appearance: No Apparent Distress, WD/WN, Obese, Other (pallor) Eyes: Bilateral Eye PERRL, Bilateral Eye EOMI HEENT: PERRL/EOMI; No Moist Mucous Membranes (dry mucous membranes); Other (pain with opening his mouth) Neck: Limited Range of Motion (due to pain to left side of neck) Respiratory: No Accessory Muscle Use, No Respiratory Distress, Decreased Breath Sounds Cardiovascular: Regular Rate, Rhythm, Normal Peripheral Pulses Gastrointestinal: No Pulsatile Mass, Non Tender, Soft, Abnormal Bowel Sounds (hypoactive bowel sounds) Rectal: Deferred Extremity: Normal Range of Motion, Non Tender, No Calf Tenderness Neurologic/Psychiatric: Alert, Oriented x3 Skin: Warm/Dry, Pallor Progress/Results/Core Measures Suspected Sepsis Recent Fever Within 48 Hours: No Infection Criteria Present: None New/Unexplained Altered Menta: No Sepsis Screen: No Definite Risk SIRS Temperature:97.1 Pulse: 102 Respiratory Rate: 26 Laboratory Tests 12/15/18 23:58: White Blood Count 14.7H Blood Pressure 142 /105 Mean: 117 Laboratory Tests 12/15/18 23:58: Creatinine 1.04, INR Comment 1.0, Platelet Count 228, Total Bilirubin 0.2 Results/Orders Lab Results Laboratory Tests Test 12/15/18 23:47 12/15/18 23:58 Range/Units Glucometer 283 H 70-110 MG/DL White Blood Count 14.7 H 4.3-11.0 10^3/uL Red Blood Count 4.15 L 4.35-5.85 10^6/uL Hemoglobin 10.0 L 13.3-17.7 G/DL Hematocrit 35 L 40-54 % Mean Corpuscular Volume 84 80-99 FL Mean Corpuscular Hemoglobin 24 L 25-34 PG Mean Corpuscular Hemoglobin Concent 29 L 32-36 G/DL Red Cell Distribution Width 15.2 H 10.0-14.5 % Platelet Count 228 130-400 10^3/uL Mean Platelet Volume 10.0 7.4-10.4 FL Neutrophils (%) (Auto) 80 H 42-75 % Lymphocytes (%) (Auto) 11 L 12-44 % Monocytes (%) (Auto) 6 0-12 % Eosinophils (%) (Auto) 2 0-10 % Basophils (%) (Auto) 0 0-10 % Neutrophils # (Auto) 11.8 H 1.8-7.8 X 10^3 Lymphocytes # (Auto) 1.7 1.0-4.0 X 10^3 Monocytes # (Auto) 0.9 0.0-1.0 X 10^3 Eosinophils # (Auto) 0.2 0.0-0.3 10^3/uL Basophils # (Auto) 0.0 0.0-0.1 10^3/uL Neutrophils % (Manual) 77 % Lymphocytes % (Manual) 16 % Monocytes % (Manual) 4 % Eosinophils % (Manual) 1 % Basophils % (Manual) 0 % Band Neutrophils 2 % Prothrombin Time 13.7 12.2-14.7 SEC INR Comment 1.0 0.8-1.4 Activated Partial Thromboplast Time 26 24-35 SEC Sodium Level 139 135-145 MMOL/L Potassium Level 3.7 3.6-5.0 MMOL/L Chloride Level 98 98-107 MMOL/L Carbon Dioxide Level 23 21-32 MMOL/L Anion Gap 18 H 5-14 MMOL/L Blood Urea Nitrogen 17 7-18 MG/DL Creatinine 1.04 0.60-1.30 MG/DL Estimat Glomerular Filtration Rate > 60 BUN/Creatinine Ratio 16 Glucose Level 335 H 70-105 MG/DL Calcium Level 9.4 8.5-10.1 MG/DL Corrected Calcium 10.4 H 8.5-10.1 MG/DL Total Bilirubin 0.2 0.1-1.0 MG/DL Aspartate Amino Transf (AST/SGOT) 15 5-34 U/L Alanine Aminotransferase (ALT/SGPT) 10 0-55 U/L Alkaline Phosphatase 89 40-136 U/L Troponin I < 0.30 <0.30 NG/ML Pro-B-Type Natriuretic Peptide 271.4 H <75.0 PG/ML Total Protein 6.5 6.4-8.2 GM/DL Albumin 2.7 L 3.2-4.5 GM/DL My Orders Orders - MARIANELA WALSH MD Comprehensive Metabolic Panel (12/15/18 23:31) Ed Iv/Invasive Line Start (12/15/18:31) Cbc With Automated Diff (12/15/18:) Protime With Inr (12/15/18:) Partial Thromboplastin Time (12/15/18:) Ct Head/Cervical Spine Wo (12/15/18:) Ct Angio Chest W (12/15/18:) Troponin I (12/15/18:) Probnp Fs (12/15/18:) Accucheck Stat ONCE (12/15/18:31) Ekg Tracing (12/15/18:) Monitor-Rhythm Ecg Trace Only (12/15/18:31) Ns Iv 1000 Ml (Sodium Chloride 0.9%) (12/15/18 23:45) Oxygen-Administer ONCE (12/15/18 23:35) Iohexol Injection (Omnipaque 350 Mg/Ml 1 (12/16/18 00:00) Received Contrast (Hold Metformin- Contr (12/16/18 00:00) Ns (Ivpb) (Sodium Chloride 0.9% Ivpb Bag (12/16/18 00:00) Manual Differential (12/15/18 23:58) Enoxaparin Injection (Lovenox Injection) (12/16/18 02:15) Medications Given in ED Current Medications Medications Dose Ordered Sig/Richard Route Start Time Stop Time Status Last Admin Dose Admin Iohexol 150 ml ONCE ONCE IV 12/16/18 00:00 12/16/18 00:01 DC 12/16/18 01:12 125 ML Sodium Chloride 100 ml ONCE ONCE IV 12/16/18 00:00 12/16/18 00:01 DC 12/16/18 01:12 100 ML Vital Signs/I&O 12/15/18 12/16/18 12/16/18 23:10 02:11 02:34 Temp 97.1 Pulse 102 104 105 Resp 26 18 20 B/P (MAP) 142/105 (117) 105/61 (76) 120/65 (83) Pulse Ox 94 98 96 O2 Delivery Room Air Nasal Cannula Nasal Cannula O2 Flow Rate 2.00 2.00 12/16/18 00:00 Intake Total 100 ml Balance 100 ml Capillary Refill : Less Than 3 Seconds Blood Pressure Mean: 117 Progress Note #1: Progress Note Obtain labs, ECG, CT of head due to his syncope, Cervical spine since he has had pain in neck and syncope with fall tonight, CT Angio of chest to evaluate for Pulmonary embolism since he has shortness of breath, cough and syncope tonight after recent colon resection for colon cancer. Give IVF for hydration and pressure support. Oxygen for shortness of breath. He reportedly had O2 sat of 94 % on room air. Progress Note #2: Progress Note Labs appear stable for him from recent admit other than mild elevation of his WBC count compared to recent labs. He has normal coags. His Troponin is negative. His BNP is slightly elevated but still in normal range for his age. He has no acute findings on CT head and cervical spine per [facility] report at 0135 Progress Note #3: Progress Note Blood pressure improved with IVF and he remains stable while on oxygen and resting in bed. He has bilateral pulmonary emboli based on his CT scan from [facility] per Dr. Sanjuana MD at 0145 and he called and spoke to me directly about this at that time. I spoke with Dr. Alvarado at 0152 about the results and he was ok with lovenox or heparin for anticoagulation. Since the patient does not have a local physician at [facility] or [facility] he will be a Hospitalist admit so I called Dr. Keller and left a message on his home phone initially at 0200. I called back and spoke with him and he accepted the pt at 0215 with admit to ICU on Lovenox injections. I updated the pt and spouse of the results and pt will be transferred by ambulance emergently to [facility]. ECG Initial ECG Impression Date: Dec 15, 2018 Initial ECG Impression Time: 23:17 Initial ECG Rate: 100 Initial ECG Rhythm: S.Tach Comment Sinus tachycardia with a rate of 100 bpm. [place] interval 150 ms. His QT interval was 423 ms and a QT corrected interval 546 ms. He has a right bundle-branch block and a left anterior fascicular block. He has T-wave flattening. Diagnostic Imaging Diagonstic Imaging: CT Plain Films/CT/US/NM/MRI: c-spine, head Comments No acute findings on either study per Dr. Sanjuana Friedman read at 0129 AM and faxed at 0135 AM Reviewed: Reviewed [place] Study Diagonstic Imaging: CT Plain Films/CT/US/NM/MRI: chest Comments Findings of acute pulmonary embolism involving the proximal to mid segmental branches bilaterally. Read by Dr. Terry Wei M.D. at 0139 am and faxed at 0145 am Reviewed: Reviewed [place] Study, Reviewed by Me Departure Communication (Admissions) Time/Spoke to Admitting Phy: 02:[address] Keller is the hospitalist on-call overnight. Will admit with Lovenox injections at 1 mg/kg subcutaneous every 12 hours for treatment of the bilateral pulmonary emboli. Time/Spoke to Consulting Phy: 01:52 D/w Dr. Alvarado as surgeon for his recent surgery about bilateral pulmonary embolism and need for anticoagulation. 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 Impression Primary Impression: Bilateral pulmonary embolism Additional Impression: Syncope Qualified Codes: R55 - Syncope and collapse Disposition: ADMITTED INPATIENT Condition: Stable Admissions Decision to Admit Reason: Admit from ER (General) Decision to Admit/Date: Dec 16, 2018 Time/Decision to Admit Time: 02:15 Departure-Patient Inst. Referrals: JOSH WHATLEY MD (PCP/Family) Primary Care Physician MARIANELA WALSH MD Dec 15, 2018 23:42
[2018-12-15] MEDS ORDERED: NS IV 1000 ML 1,000 ML IV SCH (23:45)
[2018-12-16] VITALS (10 sets, daily range): BP systolic 105–123; BP diastolic 61–86
[2018-12-16] MEDS ORDERED: NS 100 ML (IVPB) BAG IV ONE
[2018-12-16] MEDS ORDERED: HOLD METFORMIN - RECEIVED CONTRAST 20 ML VIAL IV SCH
[2018-12-16] MEDS ORDERED: IOHEXOL 350 MG/ML 150 ML (OMNIPAQUE 350) VIAL IV ONE
[2018-12-16 00:09] LABS: HEMATOCRIT 35 % (40-54); LYMPHOCYTES % (AUTO) 11 % (12-44); MEAN CORPUSCULAR HEMOGLOBIN 24 PG (25-34); MEAN CORPUSCULAR HGB CONC 29 G/DL (32-36); MEAN CORPUSCULAR VOLUME 84 FL (80-99); MONOCYTES % (AUTO) 6 % (0-12); NEUTROPHILS % (AUTO) 80 % (42-75); PLATELET COUNT 228 10^3/uL (130-400); RED CELL DISTRIBUTION WIDTH 15.2 % (10.0-14.5); WHITE BLOOD COUNT 14.7 10^3/uL (4.3-11.0)
[2018-12-16 00:10] LABS: BASOPHILS % (AUTO) 0 % (0-10); EOSINOPHILS # (AUTO) 0.2 10^3/uL (0.0-0.3); EOSINOPHILS % (AUTO) 2 % (0-10); LYMPHOCYTES # (AUTO) 1.7 X 10^3 (1.0-4.0); MONOCYTES # (AUTO) 0.9 X 10^3 (0.0-1.0); NEUTROPHILS # (AUTO) 11.8 X 10^3 (1.8-7.8)
[2018-12-16 00:26] LABS: PROTHROMBIN TIME PATIENT 13.7 SEC (12.2-14.7)
[2018-12-16 00:27] LABS: BAND NEUTROPHILS 2 %; BASOPHILS % (MANUAL) 0 %; EOSINOPHILS % (MANUAL) 1 %; LYMPHOCYTES % (MANUAL) 16 %; MONOCYTES % (MANUAL) 4 %; NEUTROPHILS % (MANUAL) 77 %
[2018-12-16 00:44] LABS: ALANINE AMINOTRANSFERASE 10 U/L (0-55); ALKALINE PHOSPHATASE 89 U/L (40-136); BILIRUBIN,TOTAL 0.2 MG/DL (0.1-1.0); BUN/CREATININE RATIO 16; CALCIUM 9.4 MG/DL (8.5-10.1); CARBON DIOXIDE 23 MMOL/L (21-32); CHLORIDE 98 MMOL/L (98-107); CREATININE SERUM 1.04 MG/DL (0.60-1.30); GFR ESTIMATED > 60; GLUCOSE 335 MG/DL (70-105); POTASSIUM 3.7 MMOL/L (3.6-5.0); SODIUM 139 MMOL/L (135-145)
[2018-12-16 00:45] LABS: ALBUMIN 2.7 GM/DL (3.2-4.5); TOTAL PROTEIN 6.5 GM/DL (6.4-8.2)
[2018-12-16] MEDS ORDERED: ENOXAPARIN 60 MG/0.6 ML (LOVENOX) SYR SC STA (02:15)
[2018-12-16] MEDS ORDERED: inSUlin ASPART (NovoLOG) 1 UNIT/0.01 ML (CHARGE PER UNIT) SC ONE (04:45)
[2018-12-16] MEDS: NS IV 1000 ML 1,000 ML IV SCH ×3 (04:58→19:54)
[2018-12-16 05:05] LABS: BASOPHILS % (AUTO) 0 % (0-10); EOSINOPHILS % (AUTO) 0 % (0-10); HEMATOCRIT 33 % (40-54); HEMOGLOBIN 9.9 G/DL (13.3-17.7); LYMPHOCYTES # (AUTO) 1.1 X 10^3 (1.0-4.0); LYMPHOCYTES % (AUTO) 8 % (12-44); MEAN CORPUSCULAR HEMOGLOBIN 24 PG (25-34); MEAN CORPUSCULAR HGB CONC 31 G/DL (32-36); MEAN CORPUSCULAR VOLUME 80 FL (80-99); MEAN PLATELET VOLUME 10.1 FL (7.4-10.4); MONOCYTES # (AUTO) 0.8 X 10^3 (0.0-1.0); MONOCYTES % (AUTO) 7 % (0-12); NEUTROPHILS # (AUTO) 10.8 X 10^3 (1.8-7.8); NEUTROPHILS % (AUTO) 85 % (42-75); PLATELET COUNT 216 10^3/uL (130-400); RED CELL DISTRIBUTION WIDTH 15.3 % (10.0-14.5); WHITE BLOOD COUNT 12.8 10^3/uL (4.3-11.0)
--- NOTE | 2018-12-16 05:13 | Pulmonary Consultation ---
History of Present Illness History of Present Illness Date of Consultation 12/16/18 05:08 Time Seen by Provider: 05:08 Date of Admission History of Present Illness 73yo with recent Colon resection by Dr. Arango discharged on Friday presented to ED secondary to syncope. Pt felt dizzy/light headed while getting up to bathroom. Pt has also been having more SOB stephenie with exertion. He developed neck pain, and SOB while in hospital however symptoms worsened after discharge.Neck pain is making it hard for him to open his mouth and eat.Pt had CTA of chest and found to have acute bilateral PEs. He was placed on Therapeutic Lovenox. Allergies and Home Medications Allergies Coded Allergies: No Known Drug Allergies (Verified , 11/10/18) Home Medications Alogliptin Benzoate 25 Mg Tablet, 25 MG PO DAILY, (Reported) Amantadine HCl 100 Mg Tablet, 50 MG PO BID, (Reported) TAKES 1/2 (100MG) TABLET Ascorbate Calcium 500 Mg Tablet, 500 MG PO DAILY, (Reported) Atorvastatin Calcium 80 Mg Tablet, 40 MG PO HS, (Reported) TAKES 1/2 (80MG) TABLET Carbidopa/Levodopa 1 Each Tablet.er, 1 TAB PO QID, (Reported) Cholecalciferol (Vitamin D3) 2,000 Unit Capsule, 2,000 UNIT PO DAILY, (Reported) Fluticasone Propionate 16 Gm [place].susp, 2 SPRAYS NS DAILY PRN for ALLERGIES, (Reported) Glipizide 10 Mg Tablet, 10 MG PO BID, (Reported) Hydrochlorothiazide 12.5 Mg Tablet, 12.5 MG PO DAILY, (Reported) Hydrocodone Bit/Acetaminophen 1 Tab Tab, 1 TAB PO Q4H PRN for PAIN-MODERATE Prescribed by: RENETTA ARANGO on 12/13/18 1121 Insulin Glargine,Hum.rec.anlog 100 Unit/1 Ml Insuln.pen, 55 UNIT SQ HS, (Reported) Losartan Potassium 100 Mg Tablet, 100 MG PO HS, (Reported) Nicotine Polacrilex 4 Mg Gum, 4 MG BC Q6H PRN for CHEW CRAVINGS, (Reported) Sildenafil Citrate 100 Mg Tablet, 100 MG PO UD PRN for ED, (Reported) [place]'s Wort 300 Mg Capsule, 300 MG PO HS PRN for SLEEP, (Reported) DOES NOT TAKE IF HE IS TAKING TRAZODONE Trazodone HCl 100 Mg Tablet, 100 MG PO HS PRN for SLEEP, (Reported) Past Ovpluay-Opwqsf-Htebsl Hx Past Med/Social Hx: Reviewed Nursing Past Med/Soc Hx Patient Social History Alcohol Use: Denies Use Recreational Drug Use: No Recent Foreign Travel: No Contact w/Someone Who Travel: No Recent Infectious Disease Expo: No Recent Hopitalizations: No Physical Abuse: No Sexual Abuse: No Mistreated: No Immunizations Up To Date Tetanus Booster (TDap): Unknown PED Vaccines UTD: No Date of Pneumonia Vaccine: Dec 09, 2015 Seasonal Allergies Seasonal Allergies: Yes Past Medical History Surgeries: Yes (lipomas removed from back; ) Abdominal, Tonsillectomy Respiratory: No Currently Using CPAP: No Currently Using BIPAP: No Cardiac: Yes High Cholesterol, Hypertension Neurological: Yes Parkinson's Disease Genitourinary: No Gastrointestinal: Yes (colon cancer) Musculoskeletal: Yes Arthritis Endocrine: Yes Diabetes, Non-Insulin dep HEENT: No (cataracts removed) Cancer: Yes Colon Psychosocial: No Integumentary: No Blood Disorders: No Family Medical History Cardiovascular disease 19 FATHER Completed stroke 19 MOTHER Hypertension 19 FATHER 19 MOTHER Myocardial infarction 19 FATHER Psychosocial problem 19 FATHER Respiratory disorder G8 BROTHER Thyroid disease 19 MOTHER Review of Systems Time Seen by Provider: 06:30 Constitutional: Weakness, Malaise; No: Fever, Chills, Sweats, Other Eyes: No: Pain, Vision change, Conjunctivae inflammation, Eyelid inflammation, Other, Redness ENT: No: Ear pain, Ear discharge, Nose pain, Nose discharge, Nose congestion, Mouth pain, Mouth swelling, Throat pain, Throat swelling, Other Respiratory: Cough, Dry, Shortness of breath, SOB with excertion; No: Wheezing, Hemoptysis, Pleuritic Pain, Sputum Cardiovascular: Palpitations, Paroxysmal Noc. Dyspnea, Lt Headedness Sepsis Event Evaluation Height, Weight, BMI Height: 6'2.00" Weight: 258lbs. 6.0oz. 117.939280ql; 33.2 BMI Method:Stated Exam Exam Vital Signs Date Time Temp Pulse Resp B/P (MAP) Pulse Ox O2 Delivery O2 Flow Rate FiO2 12/16/18 04:00 106 27 106/68 (81) 95 Nasal Cannula 2.00 12/16/18 03:45 106 11 113/86 (95) 95 Nasal Cannula 2.00 12/16/18 03:40 106 12/16/18 02:34 105 20 120/65 (83) 96 Nasal Cannula 2.00 12/16/18 02:11 104 18 105/61 (76) 98 Nasal Cannula 2.00 12/15/18 23:10 97.1 102 26 142/105 (117) 94 Room Air I & O 12/16/18 07:00 Intake Total 100 ml Balance 100 ml Height & Weight Height: 6'2.00" Weight: 258lbs. 6.0oz. 117.246100ac; 33.2 BMI Method:Stated General Appearance: No Apparent Distress, WD/WN, Obese, Other (pallor) HEENT: PERRL/EOMI; No Moist Mucous Membranes (dry mucous membranes); Other (pain with opening his mouth) Neck: Limited Range of Motion (due to pain to left side of neck) Respiratory: No Accessory Muscle Use, No Respiratory Distress, Decreased Breath Sounds Cardiovascular: Regular Rate, Rhythm, Normal Peripheral Pulses Capillary Refill: Less Than 3 Seconds Extremity: Normal Range of Motion, Non Tender, No Calf Tenderness Neurologic/Psychiatric: Alert, Oriented x3 Skin: Warm/Dry, Pallor Results Lab Laboratory Tests 12/15/18 23:58 12/16/18 04:45 Assessment/Plan Assessment/Plan Syncope secondary to acute bilateral PE -Will need at least 6mo of anticoagulation -Currently on Lovenox -Check bilateral dopplers, and echo Colon adenocarcinoma s/p Colon resection 12/10 -PET scan is negative DM -Pt takes Lantus at home. -Restart home meds Anemia -Check occult stool -Start Protonix Hypomag, -replace JIAN VILLARREAL DO Dec 16, 2018 05:13
[2018-12-16 05:23] LABS: BUN/CREATININE RATIO 16; CALCIUM 9.8 MG/DL (8.5-10.1); CARBON DIOXIDE 21 MMOL/L (21-32); CHLORIDE 103 MMOL/L (98-107); CREATININE SERUM 1.11 MG/DL (0.60-1.30); GFR ESTIMATED > 60; GLUCOSE 361 MG/DL (70-105); MAGNESIUM 1.4 MG/DL (1.8-2.4); PHOSPHORUS 3.6 MG/DL (2.3-4.7); POTASSIUM 3.9 MMOL/L (3.6-5.0); SODIUM 137 MMOL/L (135-145)
[2018-12-16] MEDS ORDERED: SODIUM PHOSPHATE INJ 15 MM in D5W 100 ML IVPB 100 ML IV ONE (05:30)
[2018-12-16] MEDS ORDERED: MAGNESIUM 1 GM/100 ML IVPB 100 ML IV SCH (06:00)
[2018-12-16] MEDS ORDERED: KCL 20 MEQ TAB (K-DUR) PO SCH (06:00)
[2018-12-16] MEDS ORDERED: POTASSIUM CL 10MEQ/50ML IVPB 50 ML IV SCH (06:00)
[2018-12-16] MEDS ORDERED: MAGNESIUM SULFATE 1 GM/2 ML VIAL ONE (06:28)
[2018-12-16] MEDS: MAGNESIUM 1 GM/100 ML IVPB 100 ML IV SCH ×3 (06:29→13:58)
[2018-12-16] MEDS: inSUlin ASPART (NovoLOG) 1 UNIT/0.01 ML (CHARGE PER UNIT) SC SCH ×4 (06:50→21:35)
--- NOTE | 2018-12-16 08:23 | Diagnostic Imaging Report ---
PROCEDURE: CT angiography of the chest with contrast. TECHNIQUE: Multiple contiguous axial images were obtained through the chest after uneventful bolus administration of intravenous contrast. 2D reconstructed CTA MIP acquisitions were also performed. Auto Exposure Controls were utilized during the CT exam to meet ALARA standards for radiation dose reduction. INDICATION: Syncope. FINDINGS: No comparison available. There are bilateral pulmonary emboli at the lobar level. Right ventricle is dilated with flattening of the septum in keeping with right heart strain. No pericardial effusion. Aorta is normal in caliber. No axillary, supraclavicular or mediastinal lymphadenopathy. Limited views of the upper abdomen are unremarkable. Lungs are clear without edema or pneumonia. No pleural effusion or pneumothorax. No suspicious pulmonary nodules. No pulmonary infarct. IMPRESSION: 1. Extensive bilateral pulmonary emboli with CT evidence of right heart strain. Preliminary read was given by teleradiology and communicated to the patient care team. Dictated by: Dictated on workstation # [id number]
--- NOTE | 2018-12-16 08:45 | NUR ---
Report given to BILLY Bhardwaj
[2018-12-16] MEDS ORDERED: PANTOPRAZOLE 40 MG (PROTONIX) VIAL IV SCH (09:00)
--- NOTE | 2018-12-16 09:00 | History & Physical-Hospitalist ---
History of Present Illness HPI/Chief Complaint Patient is a 73-year-old male who presented to the ER due to syncope. He underwent colon resection for newly diagnosed colon cancer on 12/[address] Arango and was discharged on 12/13. He went home and was feeling well except for a neck ache. Due to the neck ache he did not get out of bed much. Yesterday evening he was getting ready for bed and was walking to get his needle for his insulin when he became very short of breath and passed out. His caught him and lowered him to the ground and then called 911. On arrival he was hypoxic and CTA was done which revealed extensive bilateral pulmonary emboli. He was admitted for further management. Source: patient Date Seen 12/16/18 Time Seen by a Provider: 08:51 Attending Physician Serjio Keller MD PCP Dania Santos MD Referring Physician Date of Admission Dec 16, 2018 at 2:15 am Home Medications & Allergies Home Medications Reviewed patient Home Medication Reconciliation performed by pharmacy medication reconciliations plant maintenance technician and/or nursing. Patients Allergies have been reviewed. Allergies Allergies Coded Allergies No Known Drug Allergies (Verified11/10/18) Past Mlocyuk-Npaxkt-Gtdckf Hx Past Med/Social Hx: Reviewed Nursing Past Med/Soc Hx Patient Social History Marrital Status: Employed/Student: employed Alcohol Use: Denies Use Recreational Drug Use: No Recent Foreign Travel: No Contact w/other who traveled: No Recent Hopitalizations: No Recent Infectious Disease Expo: No Immunizations Up To Date Tetanus Booster (TDap): Unknown Pediatric: No Date of Pneumonia Vaccine: Dec 09, 2015 Seasonal Allergies Seasonal Allergies: Yes Past Medical History Surgeries: Abdominal, Tonsillectomy Currently Using CPAP: No Currently Using BIPAP: No Cardiac: High Cholesterol, Hypertension Neurological: Parkinson's Disease Musculoskeletal: Arthritis Endocrine: Diabetes, Non-Insulin dep Cancer: Colon Did You Recieve Any Treatments: Yes What Type of Treatment Did You: Surgical Intervention History of Blood Disorders: No Family History Reviewed Nursing Family Hx Cardiovascular disease 19 FATHER Completed stroke 19 MOTHER Hypertension 19 FATHER 19 MOTHER Myocardial infarction 19 FATHER Psychosocial problem 19 FATHER Respiratory disorder G8 BROTHER Thyroid disease 19 MOTHER Review of Systems Constitutional: No chills, No fever; weakness EENTM: no symptoms reported Respiratory: dyspnea on exertion (x1 month), short of breath Cardiovascular: No edema, No palpitations; syncope Gastrointestinal: no symptoms reported Genitourinary: no symptoms reported Musculoskeletal: no symptoms reported Skin: no symptoms reported Psychiatric/Neurological: No Symptoms Reported Physical Exam Physical Exam Vital Signs Vital Signs - First Documented 12/15/18 12/16/18 23:10 02:11 Temp 97.1 Pulse 102 Resp 26 B/P (MAP) 142/105 (117) Pulse Ox 94 O2 Delivery Room Air O2 Flow Rate 2.00 Capillary Refill : Less Than 3 Seconds Height, Weight, BMI Height: 6'2.00" Weight: 257lbs. 1.0oz. [id number]; 33.2 BMI Method:Stated General Appearance: No Apparent Distress, WD/WN HEENT: Moist Mucous Membranes; No Scleral Icterus (L), No Scleral Icterus (R) Neck: Normal Inspection, Supple; No Thyromegaly Respiratory: Lungs Clear, No Accessory Muscle Use, No Respiratory Distress Cardiovascular: Regular Rate, Rhythm, No Murmur Gastrointestinal: Normal Bowel Sounds, Non Tender, Soft Extremity: No Calf Tenderness, No Pedal Edema Neurologic/Psychiatric: Alert, Oriented x3, Normal Mood/Affect; No Aphasia, No Facial Droop Skin: Normal Color, Warm/Dry Results Results/Procedures Labs Laboratory Tests 12/15/18 23:58 12/16/18 04:45 Patient resulted labs reviewed. Imaging: Reviewed Imaging Films, Reviewed Imaging Report Assessment/Plan Admission Diagnosis Bilateral PE Admission Status: Inpatient Order (span 2 midnights) Reason for Inpatient Admission: Close monitoring Diagnosis/Problems Diagnosis/Problems (1) Bilateral pulmonary embolism Status: Acute Assessment & Plan: Extensive bilateral emboli on CTA Will need Lovenox given concurrent cancer Pulm consulted, appreciate recs Hematology consult, discussed with Dr. Farah Echo ordered (2) Hypertension Status: Chronic Assessment & Plan: Resume home meds Qualifiers: Hypertension type: essential hypertension Qualified Codes: I10 - Essential (primary) hypertension (3) Parkinsons disease Status: Chronic Assessment & Plan: Resume sinemet (4) Colon cancer Status: Chronic Assessment & Plan: Follows with Dr Arango Set up to see Dr Farah as an outpatient Qualifiers: Colon location: unspecified part of colon Qualified Codes: C18.9 - Malignant neoplasm of colon, unspecified (5) Diabetes mellitus Status: Chronic Assessment & Plan: Resume home basal insulin SSI Qualifiers: Diabetes mellitus type: type 2 Diabetes mellitus [facility] insulin use: with [facility] use Diabetes mellitus complication status: without complication Qualified Codes: E11.9 - Type 2 diabetes mellitus without complications; 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
--- NOTE | 2018-12-16 09:05 | NUR ---
Pt to room 428. Received report from BILLY Mcwilliams. Agree with previous assessment.
--- NOTE | 2018-12-16 09:09 | Diagnostic Imaging Report ---
PROCEDURE: US Venous Lower Ext Glen. TECHNIQUE: Multiple Real-time grayscale images were obtained over the lower extremities in various projections bilaterally. Additional duplex Doppler and color Doppler images were also obtained. INDICATION: Pulmonary emboli. FINDINGS: There is no evidence of right or left lower extremity DVT. Both lower extremity deep venous systems demonstrate normal compressibility with normal response to augmentation and Valsalva. No fluid collection or mass is seen. IMPRESSION: No evidence of right or left lower extremity DVT. Dictated by: Dictated on workstation # [id number]
--- NOTE | 2018-12-16 09:12 | Diagnostic Imaging Report ---
Indication: Bilateral pulmonary emboli. Syncope Portable chest shows normal heart size and vascularity. The lungs are clear. There is no effusion or pneumothorax. Impression: Normal chest. Dictated by: Dictated on workstation # [id number]
--- NOTE | 2018-12-16 09:59 | Diagnostic Imaging Report ---
CLINICAL INDICATION: Patient complaining of near syncope. EXAM: Head CT without IV contrast. Axial CT scan of the cervical spine with sagittal and coronal reformations. Auto Exposure Controls were utilized during the CT exam to meet ALARA standards for radiation dose reduction. COMPARISON: None. FINDINGS: Head CT: There is no evidence of acute cerebral infarct, intracranial hemorrhage, or gross mass effect. The brain parenchymal volume appears appropriate for patient's age. Subtle focal areas of low-attenuation white matter changes are seen involving both cerebral hemispheres, likely representing mild chronic small vessel ischemic disease. There is normal van-white matter distinction. There is no significant midline shift or herniation. There is no evidence of hydrocephalus. The basal cisterns are unremarkable. The skull, extracranial soft tissue, and orbits are unremarkable. The paranasal sinuses are unremarkable. Temporal bones show no significant abnormality. Cervical spine: There is no acute cervical spine fracture. There is subtle grade 1 anterolisthesis of C7 on T1 with no pars defect, likely degenerative. There is cervical spine vertebral body spurs and facet arthropathy. There is suggestion of diffuse disc bulges at the C3-C4 and C5-C6 level and posterior disc herniation at C4-C5 level. There is at least mild central canal narrowing at the C3-C4, C4-C5, and C5-C6 levels. There is severe bilateral C5-C6 neural foramen narrowing. The neck soft tissue structures show no significant abnormality. Visualized upper lung carl are clear. IMPRESSION: 1: Age-related brain parenchymal changes with no evidence of acute intracranial process. There is no skull fracture. 2: Cervical spine degenerative disease with no acute cervical spine fracture. I agree with [facility] report. Dictated by: Dictated on workstation # [id number]
[2018-12-16] MEDS ORDERED: ACET-2267 PO (10:11)
[2018-12-16] MEDS ORDERED: IBUP-30 PO (10:11)
--- NOTE | 2018-12-16 10:13 | NUR ---
PATIENT STATES HE MAINTENANCE PRESCRIPTIONS HAVE NOT CHANGED SINCE HIS PREVIOUS ADMISSION NOT TOO LONG AGO (SEE NOTE FROM PREVIOUS VISIT FOR RX DETAILS) HE WAS PRESCRIBED HYDROCODONE AT HIS LAST DISCHARGE AND STATES HE TOOK MAYBE 4 TABLETS BUT STOPPED TAKING IT BECAUSE HE FELT HIS TYLENOL AND IBU OTC WORKED JUST WELL. HE STATES HE TAKES 2 EXTRA STRENGTH TYLENOL AND OCCASIONALLY DEPENDING ON HIS PAIN LEVEL MAY TAKE 1 OTC ADVIL ALONG WITH THEM. HE DOES NOT TAKE ADVIL ALTERNATING TYLENOL.
--- NOTE | 2018-12-16 10:44 | Physical Therapy Evaluation ---
PT Evaluation-General Medical Diagnosis Admission Date Dec 16, 2018 at 02:15 Medical Diagnosis: bilateral PE Onset Date: Dec 15, 2018 Therapy Diagnosis Therapy Diagnosis: impaired mobility, strength, endurance Height/Weight Height (Feet): 6 Height (Inches): 2.00 Weight (Pounds): 257 Weight (Ounces): 1.0 Precautions Precautions/Isolations: Fall Prevention, Standard Precautions Weight Bear Status Right Lower Extremity: Right Weight Bearing/Tolerated Left Lower Extremity: Left Weight Bearing/Tolerated Referral Physician: Gabriela Reason for Referral: Evaluation/Treatment Medical History Additional Medical History Past Medical History Surgeries: Abdominal, Tonsillectomy Currently Using CPAP: No Currently Using BIPAP: No Cardiac: High Cholesterol, Hypertension Neurological: Parkinson's Disease Musculoskeletal: Arthritis Endocrine: Diabetes, Non-Insulin dep Cancer: Colon Did You Recieve Any Treatments: Yes What Type of Treatment Did You: Surgical Intervention History of Blood Disorders: No Reviewed History: Yes Social History Home: Single Level Current Living Status: Spouse Entry Into Home: Stairs With Railing PT Steps Into Home: 3 Prior/Core FIM Prior Level of Function Therapy Code Descriptions/Definitions Functional [place] Measure: 0=Not Assessed/NA 4=Minimal Assistance 1=Total Assistance 5=Supervision or Setup 2=Maximal Assistance 6=Modified [place] 3=Moderate Assistance 7=Complete [place] Therapy Quality Codes: 6 Independent with activity with or without an assistive device 5 Patient requires set up or clean up by helper. Patient completes activity by themselves 4 Supervision or touching assist (CGA). [place] provide cues , steadying assist 3 The helper provides less than half the effort to complete the activity 2 The helper provides more than half the effort to complete the activity 1 Dependent. The helper does all the effort to complete an activity 7 Patient refused to complete or attempt activity 9 The patient did not perform the activity before the current illness or injury 88 Not attempted due to Medical conditions or safety concerns Functional Abilities and Goals: Independent: Patient completed the activities by him/herself, with or without an assistive device, with no assistance from a helper. Needed Some Help: Patient needed partial assistance from another person to complete activities. Dependent: A helper completed the activities for the patient. Unknown: Not Applicable: Bed Mobility: 7 Transfers (B,C,W/C) (FIM): 7 Gait: 7 Stairs: 7 Indoor Mobility (Ambulation): Independent Stairs: Independent PT Evaluation-Current Subjective Patient in bed pre tx, agrees to PT, has no complaints of pain at rest. Pt/Family Goals "to get stronger and go home" Objective Patient Orientation: Person, Place, Situation Attachments: Oxygen, IV ROM/Strength ROM Lower Extremities WNL Strength Lower Extremities 4/5 gross bilateral lower extremities Neuromuscular (Tone, Coordination, Reflexes) NT Sensory Vision: Wears Glasses Hearing: Functional Sensation Right Lower Extremit: Intact Sensation Left Lower Extremity: Intact Transfers Therapy Code Descriptions/Definitions Functional [place] Measure: 0=Not Assessed/NA 4=Minimal Assistance 1=Total Assistance 5=Supervision or Setup 2=Maximal Assistance 6=Modified [place] 3=Moderate Assistance 7=Complete [place] Transfers (B, C, W/C) (FIM): 3 Scootin Rollin Supine to/from Sit: 3 Sit to/from Stand: 4 mod assist for supine to sit, CGA for sit to stand and transfers Gait Mode of Locomotion: Walk Anticipated Mode of Locomotion: Walk Gait (FIM): 1 Distance: 20' Gait Level of Assist: 4 Gait Persons Needed: 1 Gait Assistive Device: FWW Comments/Gait Description Steady but slow ambulation Balance Sitting Static: Fair Sitting Dynamic: Poor Standing Static: Fair Standing Dynamic: Fair Treatment seated BLE exercises x20 (AP, LAQ) Assessment/Needs Patient has impaired mobility, strength, endurance. Some SOB with activity but recovers quickly with rest. Patient in recliner post tx with nurse call, phone, tray, all needs met. Rehab Potential: Fair PT Short Term Goals Short Term Goals Time Frame: Dec 23, 2018 Transfers (B,C,W/C) (FIM): 5 Gait (FIM): 5 Gait Distance Comment: 150' Gait Level of Assist: 5 Gait Assistive Device: FWW PT Plan Problem List Problem List: Activity Tolerance, Functional Strength, Safety, Balance, Gait, Transfer, Bed Mobility Treatment/Plan Treatment Plan: Continue Plan of Care Treatment Plan: Bed Mobility, Education, Functional Activity Ziggy, Functional Strength, Gait, Safety, Therapeutic Exercise, Transfers Treatment Duration: Dec 23, 2018 Frequency: 6 times per week Estimated Hrs Per Day: .25 hour per day Patient and/or Family Agrees t: Yes Safety Risks/Education Patient Education: Gait Training, Transfer Techniques, Correct Positioning, Safety Issues Teaching Recipient: Patient Teaching Methods: Demonstration, Discussion Response to Teaching: Reinforcement Needed Discharge Recommendations Plan Patient will perform bed mobility and transfer training, balance and endurance training, functional strengthening, stair training, gait training, and education, to improve functional mobility and independence at home. Therapy D/C Recommendations: Home w/ Family Support Time/GCodes Time In: 1020 Time Out: 1035 Total Billed Treatment Time: 15 Total Billed Treatment 1 visit LEBRON 15' DELLA GREER PT Dec 16, 2018 10:44
--- NOTE | 2018-12-16 11:03 | Occupational Therapy Eval ---
OT Evaluation-General/PLF Medical Diagnosis Admission Date Dec 16, 2018 at 02:15 Medical Diagnosis: bilateral PE Onset Date: Dec 15, 2018 Therapy Diagnosis Therapy Diagnosis: impaired ADLs and mobilty Height/Weight Height (Feet): 6 Height (Inches): 2.00 Weight (Pounds): 257 Weight (Ounces): 1.0 Precautions Precautions/Isolations: Fall Prevention, Standard Precautions Safety Interventions: None Weight Bear Status Weight Bearing Restriction: Weight Bearing/Tolerated Referral Physician: Gabriela Referral Reason: Activity Tolerance, Self Care, Evaluation/Treatment, Strengthening/ROM Medical History Pertinent Medical History: HTN Additional Medical History Surgeries: Abdominal, Tonsillectomy Currently Using CPAP: No Currently Using BIPAP: No Cardiac: High Cholesterol, Hypertension Neurological: Parkinson's Disease Musculoskeletal: Arthritis Endocrine: Diabetes, Non-Insulin dep Cancer: Colon Did You Recieve Any Treatments: Yes What Type of Treatment Did You: Surgical Intervention History of Blood Disorders: No Reviewed History: Yes Current History per H&P: "Patient is a 73-year-old male who presented to the ER due to syncope. He underwent colon resection for newly diagnosed colon cancer on 12/[address] Arango and was discharged on 12/13. He went home and was feeling well except for a neck ache. Due to the neck ache he did not get out of bed much. Yesterday evening he was getting ready for bed and was walking to get his needle for his insulin when he became very short of breath and passed out. His caught him and lowered him to the ground and then called 911. On arrival he was hypoxic and CTA was done which revealed extensive bilateral pulmonary emboli. He was admitted for further management." Reviewed History: Yes Social History Home: Single Level Current Living Status: Spouse Entry Into Home: Stairs With Railing Steps Into Home: 3 Steps Inside Home: 1 ADL-Prior Level of Function Therapy Code Descriptions/Definitions Functional [place] Measure: 0=Not Assessed/NA 4=Minimal Assistance 1=Total Assistance 5=Supervision or Setup 2=Maximal Assistance 6=Modified [place] 3=Moderate Assistance 7=Complete [place] Therapy Quality Codes: 6 Independent with activity with or without an assistive device 5 Patient requires set up or clean up by helper. Patient completes activity by themselves 4 Supervision or touching assist (CGA). [place] provide cues , steadying assist 3 The helper provides less than half the effort to complete the activity 2 The helper provides more than half the effort to complete the activity 1 Dependent. The helper does all the effort to complete an activity 7 Patient refused to complete or attempt activity 9 The patient did not perform the activity before the current illness or injury 88 Not attempted due to Medical conditions or safety concerns Functional Abilities and Goals: Independent: Patient completed the activities by him/herself, with or without an assistive device, with no assistance from a helper. Needed Some Help: Patient needed partial assistance from another person to complete activities. Dependent: A helper completed the activities for the patient. 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 pt agreed to OT evaluation session. pt reports slight pain in IV site. NSG is aware. Mental Status/Objective Patient Orientation: Normal For Age Attachments: IV, Oxygen Current Glasses/Contacts: Yes Hearing Aids: No Dentures/Partials: No Hand Dominance: Right Upper Extremity ROM WNL Upper Extremity Coordination WNL finger to nose, opposition test Upper Extremity Sensation WNL Upper Extremity Strength 4+/5 MMT Edema: slight edema noted in sophia LE ADL-Treatment Therapy Code Descriptions/Definitions Functional [place] Measure: 0=Not Assessed/NA 4=Minimal Assistance 1=Total Assistance 5=Supervision or Setup 2=Maximal Assistance 6=Modified [place] 3=Moderate Assistance 7=Complete [place] Therapy Quality Codes: 6 Independent with activity with or without an assistive device 5 Patient requires set up or clean up by helper. Patient completes activity by themselves 4 Supervision or touching assist (CGA). [place] provide cues , steadying assist 3 The helper provides less than half the effort to complete the activity 2 The helper provides more than half the effort to complete the activity 1 Dependent. The helper does all the effort to complete an activity 7 Patient refused to complete or attempt activity 9 The patient did not perform the activity before the current illness or injury 88 Not attempted due to Medical conditions or safety concerns EVAL only. not true FIMs. functional transfers CGA using RW pt can perform UB dressing, LB dressing, toileting and bathing. with CGA Other Treatments pt education on proper use of RW and had placement. pt demo ability to perform sit to stand with CGA. pt c/o of neck pain. pt stated he thinks his neck pain is from his positioning in bed. noted slight cervical rotation to R/L sided. pt education on applying heat to neck to decrease tension an perform cervical exercises. pt dem ex. correctly by looking to right/ left an forward/ backward. Education OT Patient Education: Progress toward Goal/Update tx plan OT Short Term Goals Short Term Goals Time Frame: Dec 23, 2018 Grooming(FIM): 5 Bathing(FIM): 5 Lower Body Dressing(FIM): 6 Toileting(FIM): 5 Transfers (B,C,W/C) (FIM): 5 Toilet/Commode Transfer(FIM): 5 1=Demonstrate adherence to instructed precautions during ADL tasks. 2=Patient will verbalize/demonstrate understanding of assistive devices/mod ifications for ADL. 3=Patient will improve strength/tolerance for activity to enable patient to perform ADL's. OT Senior Care Goals Bulk Folder Goals Time Frame: Dec 30, 2018 Grooming(FIM): 6 Bathing(FIM): 6 Bathing Location: L Arm, R Arm, L Upper Leg, R Upper Leg, L Lower Leg (including foot), R Lower Leg (including foot), Chest, Abdomen, Buttocks, Perineal Area Upper Body Dressing(FIM): 6 Lower Body Dressing(FIM): 6 Toileting(FIM): 6 Transfers (B,C,W/C) (FIM): 6 Toilet/Commode Transfer(FIM): 6 Additional Goals: 1-Demonstrate ADL Tasks, 2-Verbalize Understanding, 3- ImproveStrength/Ziggy 1=Demonstrate adherence to instructed precautions during ADL tasks. 2=Patient will verbalize/demonstrate understanding of assistive devices/modifications for ADL. 3=Patient will improve strength/tolerance for activity to enable patient to perform ADL's. OT Education/Plan Problem List/Assessment Assessment: Decreased Activ Tolerance, Decreased Safety Aware, Impaired I ADL's, Impaired Self-Care Skills pt presents with functional limitations affecting areas of ADLs and functional transfers with the above mention deficits. pt would benefit from OT services to increase indep. with ADLS and functional transfers and for safe transition to home. noted limited activity tolerance SOB with slight activity. pt would benefit from additional eduction related to incorporating energy conservation into daily activities. Discharge Recommendations Plan/Recommendations: Continue POC Therapy D/C Recommendations: Home w/ Family Support Equpiment Recommendations-D/C: None Barriers to Progress activity tolerance Treatment Plan/Plan of Care Treatment,Training & Education: Yes Patient would benefit from OT for education, treatment and training to promote independence in ADL's, mobility, safety and/or upper extremity function for ADL's. Plan of Care: ADL Retraining, Caregiver Training, Functional Mobility, Group Exercise/Act as Ind, UE Funct Exercise/Act Treatment Duration: Dec 30, 2018 Frequency: 4 times per week Estimated Hrs Per Day: .25 hour per day Agreement: Yes Rehab Potential: Fair Time/GCodes Start Time: 10:40 Stop Time: 11:05 Billed Treatment Time EVM 15 minutes FA 10 minutes, 1 unit LUANEN HOBBS OT Dec 16, 2018 11:03
[2018-12-16] MEDS ORDERED: NICOTINE POLACRILEX 4 MG BC PRN (11:30)
[2018-12-16] MEDS ORDERED: traZODone 100 MG (DESYREL) TAB PO PRN (11:30)
[2018-12-16] MEDS ORDERED: NON-FORMULARY MEDICATION 1 EA EA (Ibuprofen (Advil) 200 MG) PO PRN (11:30)
[2018-12-16] MEDS ORDERED: FLUTICASONE NASAL SPRAY (FLONASE) 16 GM BTL NS PRN (11:30)
[2018-12-16] MEDS ORDERED: NICOTINE 2 MG GUM (NICORETTE) BC PRN (13:00)
[2018-12-16] MEDS ORDERED: NICOTINE 2 MG LOZENGE (COMMIT) MM PRN (13:00)
[2018-12-16] MEDS ORDERED: NICOTINE 2 MG GUM (NICORETTE) PO PRN (13:00)
[2018-12-16] MEDS ORDERED: IBUPROFEN TABLET 200 MG TAB PO PRN (13:00)
[2018-12-16] MEDS: SINEMET CR 50/200 (CARBIDOPA/LEVODOPA SA) TAB PO SCH ×3 (13:57→21:35)
[2018-12-16] MEDS: ENOXAPARIN 60 MG/0.6 ML (LOVENOX) SYR SC SCH (14:00)
--- NOTE | 2018-12-16 16:21 | NUR ---
IRF Evaluation Order received to evaluate patient for the ARU. Chart review complete and findings discussed with Dr. Bennett - patient accepted. It appears patient's primary insurance provider is [employer] ([employer]); therefore, prior authorization for admission would be required. Will meet with patient to discuss details of rehabilitation program, as well as the possibility of submitting to , for auth. Thank you for this referral.
[2018-12-16] MEDS ORDERED: ATORVASTATIN 80 MG (LIPITOR) TABLET PO SCH (21:00)
[2018-12-16] MEDS ORDERED: AMANTADINE HCL 50 MG PO SCH (21:00)
[2018-12-16] MEDS ORDERED: inSUlin ASPART (NovoLOG) 1 UNIT/0.01 ML (CHARGE PER UNIT) SC SCH (21:00)
[2018-12-16] MEDS: LOSARTAN 100 MG (COZAAR) TABLET PO SCH (21:35)
[2018-12-16] MEDS: ATORVASTATIN 40 MG (LIPITOR) TABLET PO SCH (21:35)
[2018-12-16] MEDS: AMANTADINE 10 MG/ML SYRUP (SYMMETREL) CHARGE PER ML PO SCH (21:36)
[2018-12-17 00:10] VITALS: BP 139/75
[2018-12-17] MEDS: ENOXAPARIN 60 MG/0.6 ML (LOVENOX) SYR SC SCH (03:20)
[2018-12-17 03:40] VITALS: BP 110/69
[2018-12-17] MEDS: NS IV 1000 ML 1,000 ML IV SCH ×2 (04:23→12:00)
[2018-12-17 05:23] LABS: BASOPHILS % (AUTO) 0 % (0-10); EOSINOPHILS # (AUTO) 0.2 10^3/uL (0.0-0.3); EOSINOPHILS % (AUTO) 2 % (0-10); HEMATOCRIT 31 % (40-54); HEMOGLOBIN 9.3 G/DL (13.3-17.7); LYMPHOCYTES % (AUTO) 22 % (12-44); MEAN CORPUSCULAR HEMOGLOBIN 24 PG (25-34); MEAN CORPUSCULAR HGB CONC 30 G/DL (32-36); MEAN CORPUSCULAR VOLUME 80 FL (80-99); MEAN PLATELET VOLUME 9.8 FL (7.4-10.4); MONOCYTES # (AUTO) 0.7 X 10^3 (0.0-1.0); MONOCYTES % (AUTO) 8 % (0-12); NEUTROPHILS % (AUTO) 67 % (42-75); PLATELET COUNT 235 10^3/uL (130-400); RED CELL DISTRIBUTION WIDTH 15.8 % (10.0-14.5)
[2018-12-17 05:40] LABS: BUN/CREATININE RATIO 21; CALCIUM 9.2 MG/DL (8.5-10.1); CARBON DIOXIDE 24 MMOL/L (21-32); CHLORIDE 105 MMOL/L (98-107); CREATININE SERUM 0.78 MG/DL (0.60-1.30); GFR ESTIMATED > 60; GLUCOSE 167 MG/DL (70-105); MAGNESIUM 1.7 MG/DL (1.8-2.4); PHOSPHORUS 2.5 MG/DL (2.3-4.7); POTASSIUM 3.2 MMOL/L (3.6-5.0); SODIUM 138 MMOL/L (135-145)
[2018-12-17] MEDS: inSUlin ASPART (NovoLOG) 1 UNIT/0.01 ML (CHARGE PER UNIT) SC SCH ×4 (05:57→21:58)
--- NOTE | 2018-12-17 07:55 | Pulmonary Progress Note ---
Subjective Time Seen by a Provider: 11:24 Subjective/Events-last exam No complications noted. Sepsis Event Evaluation Height, Weight, BMI Height: 6'2.00" Weight: 258lbs. 0.0oz. 117.842099qi; 33.2 BMI Method:Stated Exam Exam Vital Signs Date Time Temp Pulse Resp B/P (MAP) Pulse Ox O2 Delivery O2 Flow Rate FiO2 12/17/18 07:00 71 12/17/18 03:40 96.8 76 24 110/69 (83) 95 Nasal Cannula 2.50 12/17/18 01:00 75 12/17/18 00:10 96.9 89 20 139/75 (96) 96 Nasal Cannula 2.50 12/16/18 19:55 96 Nasal Cannula 2.50 12/16/18 19:00 74 12/16/18 12:49 96 12/16/18 08:02 95 Nasal Cannula 2.00 12/16/18 08:00 95 25 122/72 (89) 96 Nasal Cannula 2.00 I & O 12/17/18 07:00 Intake Total 2715 ml Output Total 600 ml Balance 2115 ml Height & Weight Height: 6'2.00" Weight: 258lbs. 0.0oz. 117.459110ur; 33.2 BMI Method:Stated General Appearance: No Apparent Distress, WD/WN HEENT: Moist Mucous Membranes; No Scleral Icterus (L), No Scleral Icterus (R) Neck: Normal Inspection, Supple; No Thyromegaly Respiratory: Lungs Clear, No Accessory Muscle Use, No Respiratory Distress Cardiovascular: Regular Rate, Rhythm, No Murmur Capillary Refill: Less Than 3 Seconds Extremity: No Calf Tenderness, No Pedal Edema Neurologic/Psychiatric: Alert, Oriented x3, Normal Mood/Affect; No Aphasia, No Facial Droop Skin: Normal Color, Warm/Dry Results Lab Laboratory Tests 12/15/18 23:58 12/16/18 04:45 12/17/18 05:15 Assessment/Plan Assessment/Plan Syncope secondary to acute bilateral PE -Will need at least 6mo of anticoagulation -Currently on Lovenox -Switch to PO eliquis -Check bilateral dopplers, and echo Colon adenocarcinoma s/p Colon resection 12/10 -PET scan is negative DM -Pt takes Lantus at home. -Restart home meds Anemia -Check occult stool -Start Protonix JIAN VILLARREAL DO Dec 17, 2018 07:55
[2018-12-17 08:00] VITALS: BP 125/77
--- NOTE | 2018-12-17 08:13 | Diagnostic Imaging Report ---
EXAM: CHEST 1 VIEW, AP/PA ONLY INDICATION: Pulmonary emboli. Syncope. COMPARISON: Chest radiograph 12/16/2018. FINDINGS: Normal heart size and central pulmonary vascularity. No focal pulmonary opacity, pleural effusion or pneumothorax. No acute osseous findings. IMPRESSION: No acute cardiopulmonary findings. Dictated by: Dictated on workstation # [id number]
[2018-12-17] MEDS ORDERED: NON-FORMULARY MEDICATION 1 EA EA (Hydrochlorothiazide 12.5 MG) PO SCH (09:00)
[2018-12-17] MEDS: PANTOPRAZOLE 40 MG (PROTONIX) TAB PO SCH (09:31)
[2018-12-17] MEDS: SINEMET CR 50/200 (CARBIDOPA/LEVODOPA SA) TAB PO SCH ×4 (09:32→21:57)
[2018-12-17] MEDS: HYDROCHLOROTHIAZIDE 12.5 MG (HCTZ) CAP PO SCH (09:32)
[2018-12-17] MEDS: AMANTADINE 10 MG/ML SYRUP (SYMMETREL) CHARGE PER ML PO SCH ×2 (09:47→21:58)
[2018-12-17] MEDS ORDERED: APIXABAN 5 MG (ELIQUIS) TABLET PO SCH (10:00)
--- NOTE | 2018-12-17 11:40 | Physical Therapy Daily Note ---
PT Daily Note-Current Subjective Patient reports he is feeling much better and agrees to PT. Pain Numeric Pain Scale: 0-No Pain Location: No Pain Reported Mental Status Patient Orientation: Normal For Age Attachments: Oxygen, IV Transfers Therapy Code Descriptions/Definitions Functional [place] Measure: 0=Not Assessed/NA 4=Minimal Assistance 1=Total Assistance 5=Supervision or Setup 2=Maximal Assistance 6=Modified [place] 3=Moderate Assistance 7=Complete [place] Therapy Quality Codes: 6 Independent with activity with or without an assistive device 5 Patient requires set up or clean up by helper. Patient completes activity by themselves 4 Supervision or touching assist (CGA). Winn provide cues , steadying assist 3 The helper provides less than half the effort to complete the activity 2 The helper provides more than half the effort to complete the activity 1 Dependent. The helper does all the effort to complete an activity 7 Patient refused to complete or attempt activity 9 The patient did not perform the activity before the current illness or injury 88 Not attempted due to Medical conditions or safety concerns Transfers (B, C, W/C) (FIM): 7 Scootin Rollin Supine to/from Sit: 7 Sit to/from Stand: 7 Bed to/from Chair: 7 Weight Bearing Right Lower Extremity: Right Weight Bearing/Tolerated Left Lower Extremity: Left Weight Bearing/Tolerated Gait Training Gait (FIM): 7 Distance (FIM): 3=150 ft Distance: 600' Gait Level of Assist: 7 Gait Assistive Device: None slow, steady gait sequence with no deviation Assessment Patient is up in recliner waiting for breakfast with family present. Patient progressing and desires to return to home soon. PT to see patient x 1 more session to ensure patient continues to demonstrate independent mobility without difficulty. PT Short Term Goals Short Term Goals Time Frame: Dec 23, 2018 Transfers (B,C,W/C) (FIM): 5 Gait (FIM): 5 Gait Distance Comment: 150' Gait Level of Assist: 5 Gait Assistive Device: FWW PT Plan Treatment/Plan Treatment Plan: Continue Plan of Care Treatment Plan: Bed Mobility, Education, Functional Activity Ziggy, Functional Strength, Gait, Safety, Therapeutic Exercise, Transfers Treatment Duration: Dec 23, 2018 Frequency: 6 times per week Estimated Hrs Per Day: .25 hour per day Patient and/or Family Agrees t: Yes Time/GCodes Time In: 1005 Time Out: 1018 Total Billed Treatment Time: 13 Total Billed Treatment 1 visit FA 13 min VESTA VELASQUEZ PT Dec 17, 2018 11:40
[2018-12-17 12:00] VITALS: BP 118/75
--- NOTE | 2018-12-17 12:49 | Progress Note - Hospitalist ---
Subjective HPI/CC On Admission Date Seen by Provider: Dec 17, 2018 Time Seen by Provider: 12:44 Patient is a 73-year-old male who presented to the ER due to syncope. He underwent colon resection for newly diagnosed colon cancer on 12/[address] Arango and was discharged on 12/13. He went home and was feeling well except for a neck ache. Due to the neck ache he did not get out of bed much. Yesterday evening he was getting ready for bed and was walking to get his needle for his insulin when he became very short of breath and passed out. His caught him and lowered him to the ground and then called 911. On arrival he was hypoxic and CTA was done which revealed extensive bilateral pulmonary emboli. He was admitted for further management. Subjective/Events-last exam No complaints. Feeling well. Still on oxygen. Objective Exam Vital Signs Vital Signs Date Time Temp Pulse Resp B/P (MAP) Pulse Ox O2 Delivery O2 Flow Rate FiO2 12/17/18 12:42 85 12/17/18 12:00 98.4 20 118/75 (89) 100 Nasal Cannula 2.00 Capillary Refill : Less Than 3 Seconds General Appearance: No Apparent Distress, WD/WN Neck: No Thyromegaly Respiratory: No Accessory Muscle Use, No Respiratory Distress Extremity: No Calf Tenderness Neurologic/Psychiatric: Alert, Oriented x3, Normal Mood/Affect; No Aphasia Results/Procedures Lab Laboratory Tests 12/17/18 05:15 Patient resulted labs reviewed. Imaging: Reviewed Imaging Films, Reviewed Imaging Report Assessment/Plan Assessment and Plan Assess & Plan/Chief Complaint Bilateral PE Diagnosis/Problems Diagnosis/Problems (1) Bilateral pulmonary embolism Status: Acute Assessment & Plan: Extensive bilateral emboli on CTA Start on Eliquis after discussion with pharmacy and heme, appreciate their ex pertise Pulm consulted, appreciate recs Dopplers negative (2) Hypertension Status: Chronic Assessment & Plan: Resume home meds Qualifiers: Hypertension type: essential hypertension Qualified Codes: I10 - Essential (primary) hypertension (3) Parkinsons disease Status: Chronic Assessment & Plan: sinemet (4) Colon cancer Status: Chronic Assessment & Plan: Follows with Dr Arango Set up to see Dr Farah as an outpatient Qualifiers: Colon location: unspecified part of colon Qualified Codes: C18.9 - Malignant neoplasm of colon, unspecified (5) Diabetes mellitus Status: Chronic Assessment & Plan: home basal insulin SSI Qualifiers: Diabetes mellitus type: type 2 Diabetes mellitus intermediate card tender insulin use: with intermediate card tender use Diabetes mellitus complication status: without complication Qualified Codes: E11.9 - Type 2 diabetes mellitus without complications; Z79.4 - alf (current) use of insulin Clinical Quality Measures DVT/VTE Risk/Contraindication: Risk Factor Score Per Nursin RFS Level Per Nursing on Admit: 2=Moderate MIRACLE ORNELAS MD Dec 17, 2018 12:49
[2018-12-17] MEDS ORDERED: KCL 20 MEQ TAB (K-DUR) PO NR (13:00)
--- NOTE | 2018-12-17 13:07 | NUR ---
provided education to the patient about eliquis we discussed how to take medication, common side effects, how to take medication, and how to handle uncontrolled bruising/bleeding. I also provided an eliquis savings card and recommended working with PCP/[facility] to determine if refills/followup fills will be covered. I answered all his medication questions.
--- NOTE | 2018-12-17 13:33 | Oncology Consultation ---
Visit Information Visit Information Date of Admission Dec 16, 2018 at 02:15 Attending Physician Serjio Keller MD Admitting Physician Dania Santos MD Chief Complaint Pulmonary emboli, colon cancer, anemia Interval History Mr. Cho is a 73 year old man admitted to hospital for bilateral pulmonary embolism. He had lap colon resection 12/10/2018 for the adenocarcinoma of the descending colon by Dr Arango. He tolerated the surgery well and discharged home 12/11/18 without any surgical complication. On 12/15/18 night, he had acute SOB and near syncope episode and brought him to the ER and was found to have bilateral PE. He was treated with Lovenox since the admission but stopped today because of the Hb dropping from 10.2 on admission to 9.3 today. We are called to help the management. Last bowel movement 2 days ago and black tarry. I consulted the patient on: 12/17/18 13:33 Time Seen by Provider: 16:54 Review of Systems Constitutional: weakness EENTM: see HPI Respiratory: short of breath Gastrointestinal: see HPI Health Status Allergies Coded Allergies: No Known Drug Allergies (Verified , 11/10/18) Home Medications Acetaminophen (Tylenol Extra Strength) 500 Mg Tablet, 1,000 MG PO Q4H PRN for PAIN-MILD, (Reported) Alogliptin Benzoate (Alogliptin) 25 Mg Tablet, 25 MG PO DAILY, (Reported) Amantadine HCl (Amantadine) 100 Mg Tablet, 50 MG PO BID, (Reported) TAKES 1/2 (100MG) TABLET Ascorbate Calcium (Vitamin C) 500 Mg Tablet, 500 MG PO DAILY, (Reported) Atorvastatin Calcium (Atorvastatin Calcium) 80 Mg Tablet, 40 MG PO HS, (Reported) TAKES 1/2 (80MG) TABLET Carbidopa/Levodopa (Carbidopa-Levo ER 50-200 Tab) 1 Each Tablet.er, 1 TAB PO QID, (Reported) Cholecalciferol (Vitamin D3) (Vitamin D3) 2,000 Unit Capsule, 2,000 UNIT PO DAILY, (Reported) Fluticasone Propionate (Fluticasone Propionate) 16 Gm [place].susp, 2 SPRAYS NS DAILY PRN for ALLERGIES, (Reported) Glipizide (Glipizide) 10 Mg Tablet, 10 MG PO BID, (Reported) Hydrochlorothiazide (Hydrochlorothiazide) 12.5 Mg Tablet, 12.5 MG PO DAILY, (Reported) Ibuprofen (Advil) 200 Mg Tablet, 200 MG PO Q4H PRN for PAIN-MILD, (Reported) TAKES 1 IBU ALONG WITH 2 EXTRA STENGTH TYLENOL OCCASIONALLY IF PAIN IS GREATER THAN WHAT 2 TYLENOL WOULD COVER. Insulin Glargine,Hum.rec.anlog (Lantus Solostar) 100 Unit/1 Ml Insuln.pen, 55 UNIT SQ HS, (Reported) Losartan Potassium (Losartan Potassium) 100 Mg Tablet, 100 MG PO HS, (Reported) Nicotine Polacrilex (Nicotine Gum) 4 Mg Gum, 4 MG BC Q6H PRN for CHEW CRAVINGS, (Reported) Sildenafil Citrate (Sildenafil Citrate) 100 Mg Tablet, 100 MG PO UD PRN for ED, (Reported) [place]'s Wort ([place]'s Wort) 300 Mg Capsule, 300 MG PO HS PRN for SLEEP, (Reported) DOES NOT TAKE IF HE IS TAKING TRAZODONE Trazodone HCl (Trazodone HCl) 100 Mg Tablet, 100 MG PO HS PRN for SLEEP, (Reported) [id number] Hx Patient Social History Marrital Status: Employed/Student: employed Alcohol Use: Denies Use Recreational Drug Use: No Recent Foreign Travel: No Contact w/other who traveled: No Recent Infectious Disease Expo: No Recent Hopitalizations: No Immunizations Up To Date Tetanus Booster (TDap): Unknown Date of Pneumonia Vaccine: Dec 09, 2015 Family Medical History Family History: Cardiovascular disease 19 FATHER Completed stroke 19 MOTHER Hypertension 19 FATHER 19 MOTHER Myocardial infarction 19 FATHER Psychosocial problem 19 FATHER Respiratory disorder G8 BROTHER Thyroid disease 19 MOTHER Physical Exam Vital Signs Vital Signs - First Documented 12/15/18 12/16/18 23:10 02:11 Temp 97.1 Pulse 102 Resp 26 B/P (MAP) 142/105 (117) Pulse Ox 94 O2 Delivery Room Air O2 Flow Rate 2.00 Capillary Refill : Less Than 3 Seconds Height, Weight, BMI Height: 6'2.00" Weight: 258lbs. 0.0oz. 117.611076wv; 33.2 BMI Method:Stated General Appearance: No Apparent Distress, Obese HEENT: PERRL/EOMI Neck: Non Tender, Supple Respiratory: Lungs Clear, No Accessory Muscle Use, No Respiratory Distress Cardiovascular: Regular Rate, Rhythm, No Murmur, Tachycardia Gastrointestinal: Soft, Distended, Tenderness, Other (10 cm surgical incision, stepled, no bleeding no sign of infection) Extremity: Non Tender, No Calf Tenderness, No Pedal Edema Neurologic/Psychiatric: Alert, Oriented x3, Normal Mood/Affect Data Review Labs Laboratory Tests 12/17/18 05:15 12/17/18 15:49 Laboratory Tests 12/15/18 23:47: Glucometer 283H 12/15/18 23:58: White Blood Count 14.7H, Red Blood Count 4.15L, Hemoglobin 10.0L, Hematocrit 35L , Mean Corpuscular Hemoglobin 24L, Mean Corpuscular Hemoglobin Concent 29L, Red Cell Distribution Width 15.2H, Neutrophils (%) (Auto) 80H, Lymphocytes (%) (Auto) 11L, Neutrophils # (Auto) 11.8H, Anion Gap 18H, Glucose Level 335H, Corrected Calcium 10.4H, Pro-B-Type Natriuretic Peptide 271.4H, Albumin 2.7L 12/16/18 03:45: Glucometer 312H 12/16/18 04:45: White Blood Count 12.8H, Red Blood Count 4.07L, Hemoglobin 9.9L, Hematocrit 33L, Mean Corpuscular Hemoglobin 24L, Mean Corpuscular Hemoglobin Concent 31L, Red Cell Distribution Width 15.3H, Neutrophils (%) (Auto) 85H, Lymphocytes (%) (Auto) 8L, Neutrophils # (Auto) 10.8H, Glucose Level 361H, Magnesium Level 1.4L 12/16/18 06:32: Glucometer 293H 12/16/18 11:06: Glucometer 306H 12/16/18 15:58: Glucometer 256H 12/16/18 20:57: Glucometer 353H 12/17/18 05:15: Red Blood Count 3.82L, Hemoglobin 9.3L, Hematocrit 31L, Mean Corpuscular Hemoglobin 24L, Mean Corpuscular Hemoglobin Concent 30L, Red Cell Distribution Width 15.8H, Potassium Level 3.2L, Glucose Level 167H, Magnesium Level 1.7L 12/17/18 11:14: Glucometer 245H 12/17/18 15:49: Red Blood Count 3.77L, Hemoglobin 9.2L, Hematocrit 30L, Mean Corpuscular Hemoglobin 24L, Mean Corpuscular Hemoglobin Concent 30L, Red Cell Distribution Width 15.6H, Prothrombin Time 15.2H, Activated Partial Thromboplast Time 36H 12/17/18 16:10: Glucometer 281H Laboratory Tests 12/17/18 05:15 12/17/18 15:49 Impression & Plan Impression & Plan IMP: 1. Adenocarcinoma of the descending colon, s/p lap surgical resection 12/10/2018. Pending on staging work up. 2. Hypercoagulopathy and bilateral PE, was on Lovenox treatment and stopped today due to dropping Hb. 3. Anemia from blood loss. 4. Hypoxia from PE but hemodynamic stable. Rec: Pt needs to be on anticoagulation treatment even if his Hb drops and may suggest small bleeding because of the risk and damage of PE is way higher than the bleeding. His Hb drop could also be IVF dilution effect. However, it is almost impossible to differentiate them at this point. I would suggested to put him on Heparin drip and closely watch him in the hospital for the next 2 days. Check the Hb bid. If Hb is below 8, we can transfuse to keep his Hb above 8. If his Hb is stable in next 2 days, then we can start him on Eliquis 5mg bid rather than 10mg bid since he will pass the first 7 days. Once he is able to transition to Eliquis, he can be discharged home and I will see him at the cancer center to finish the work up of his colon cancer. Check stool occult blood test. If negative, we will feel more confident that Hb drop is IV dilution. However, if it is possible, it could be the old bleeding from the surgery and the active bleeding. Thank you for the consultation. I will f/u with you. VALENTINE BUSTAMANTE MD Dec 17, 2018 13:33
--- NOTE | 2018-12-17 14:29 | Occupational Ther Daily Note ---
OT Current Status-Daily Note Subjective Pt alert, lying in bed. Pt agrees to therapy. No c/o pain at this time. Mental Status/Objective Patient Orientation: Person, Place, Time, Situation Therapy Code Descriptions/Definitions Functional [place] Measure: 0=Not Assessed/NA 4=Minimal Assistance 1=Total Assistance 5=Supervision or Setup 2=Maximal Assistance 6=Modified [place] 3=Moderate Assistance 7=Complete [place] Attachments: IV, Oxygen ADL-Treatment Pt declined ADLs at this time. Other Treatment Medium resistance theraband exercises completed, requiring skilled instruction for correct technique and education. Completed 3 sets 10 reps of 4 exercises with recovery breaks between sets. Pt tolerated well. After therapy, pt lying in bed with call light/phone in reach. All needs met in room. OT Short Term Goals Short Term Goals Time Frame: Dec 23, 2018 Grooming(FIM): 5 Bathing(FIM): 5 Lower Body Dressing(FIM): 6 Toileting(FIM): 5 Transfers (B,C,W/C) (FIM): 5 Toilet/Commode Transfer(FIM): 5 1=Demonstrate adherence to instructed precautions during ADL tasks. 2=Patient will verbalize/demonstrate understanding of assistive devices/modifications for ADL. 3=Patient will improve strength/tolerance for activity to enable patient to perform ADL's. OT Prison Goals Helicopter Repairer Goals Time Frame: Dec 30, 2018 Grooming(FIM): 6 Bathing(FIM): 6 Bathing Location: L Arm, R Arm, L Upper Leg, R Upper Leg, L Lower Leg (including foot), R Lower Leg (including foot), Chest, Abdomen, Buttocks, Perineal Area Upper Body Dressing(FIM): 6 Lower Body Dressing(FIM): 6 Toileting(FIM): 6 Transfers (B,C,W/C) (FIM): 6 Toilet/Commode Transfer(FIM): 6 Additional Goals: 1-Demonstrate ADL Tasks, 2-Verbalize Understanding, 3- ImproveStrength/Ziggy 1=Demonstrate adherence to instructed precautions during ADL tasks. 2=Patient will verbalize/demonstrate understanding of assistive devices/modifications for ADL. 3=Patient will improve strength/tolerance for activity to enable patient to perform ADL's. OT Education/Plan Problem List/Assessment Assessment: Decreased UE Strength pt presents with functional limitations affecting areas of ADLs and functional transfers with the above mention deficits. pt would benefit from OT services to increase indep. with ADLS and functional transfers and for safe transition to home. noted limited activity tolerance SOB with slight activity. pt would benefit from additional eduction related to incorporating energy conservation into daily activities. Discharge Recommendations Plan/Recommendations: Continue POC Treatment Plan/Plan of Care Patient would benefit from OT for education, treatment and training to promote independence in ADL's, mobility, safety and/or upper extremity function for ADL's. Plan of Care: ADL Retraining, Caregiver Training, Functional Mobility, Group Exercise/Act as Ind, UE Funct Exercise/Act Treatment Duration: Dec 30, 2018 Frequency: 4 times per week Estimated Hrs Per Day: .25 hour per day Agreement: Yes Rehab Potential: Fair Time/GCodes Start Time: 14:10 Stop Time: 14:25 Total Time Billed (hr/min): 15 Billed Treatment Time 1 visit-EX 1 (15 min) STONEY ELAM Dec 17, 2018 14:29
[2018-12-17 15:55] LABS: HEMOGLOBIN 9.2 G/DL (13.3-17.7); MEAN PLATELET VOLUME 9.4 FL (7.4-10.4); RED CELL DISTRIBUTION WIDTH 15.6 % (10.0-14.5); WHITE BLOOD COUNT 8.7 10^3/uL (4.3-11.0)
[2018-12-17 16:10] VITALS: BP 123/72
[2018-12-17 16:12] LABS: INR 1.2 (0.8-1.4); PROTHROMBIN TIME PATIENT 15.2 SEC (12.2-14.7)
[2018-12-17] MEDS: HEParin 1000 UNIT/ML (10ML VIAL) FOR BOLUS IV SCH (18:53)
[2018-12-17] MEDS: HEParin DRIP 25000 UNIT/500ML 500 ML IV SCH (18:59)
[2018-12-17 20:35] VITALS: BP 134/78
[2018-12-17] MEDS: ATORVASTATIN 40 MG (LIPITOR) TABLET PO SCH (21:57)
[2018-12-17] MEDS: LOSARTAN 100 MG (COZAAR) TABLET PO SCH (21:57)
[2018-12-18] VITALS (7 sets, daily range): BP systolic 116–149; BP diastolic 67–79
[2018-12-18] MEDS: HEParin DRIP 25000 UNIT/500ML 500 ML IV SCH ×3 (01:41→16:31)
[2018-12-18] MEDS: HEParin 1000 UNIT/ML (10ML VIAL) FOR BOLUS IV SCH ×2 (01:42→16:23)
[2018-12-18] MEDS: inSUlin ASPART (NovoLOG) 1 UNIT/0.01 ML (CHARGE PER UNIT) SC SCH ×4 (06:05→21:39)
[2018-12-18 06:10] LABS: BASOPHILS % (AUTO) 0 % (0-10); EOSINOPHILS # (AUTO) 0.3 10^3/uL (0.0-0.3); EOSINOPHILS % (AUTO) 3 % (0-10); HEMATOCRIT 31 % (40-54); HEMOGLOBIN 9.3 G/DL (13.3-17.7); LYMPHOCYTES % (AUTO) 25 % (12-44); MEAN CORPUSCULAR HEMOGLOBIN 25 PG (25-34); MEAN CORPUSCULAR HGB CONC 30 G/DL (32-36); MEAN CORPUSCULAR VOLUME 81 FL (80-99); MEAN PLATELET VOLUME 9.7 FL (7.4-10.4); MONOCYTES # (AUTO) 0.5 X 10^3 (0.0-1.0); MONOCYTES % (AUTO) 6 % (0-12); NEUTROPHILS # (AUTO) 5.2 X 10^3 (1.8-7.8); NEUTROPHILS % (AUTO) 66 % (42-75); PLATELET COUNT 247 10^3/uL (130-400); RED CELL DISTRIBUTION WIDTH 15.3 % (10.0-14.5); WHITE BLOOD COUNT 7.9 10^3/uL (4.3-11.0)
[2018-12-18 06:46] LABS: BUN/CREATININE RATIO 14; CALCIUM 9.3 MG/DL (8.5-10.1); CARBON DIOXIDE 27 MMOL/L (21-32); CHLORIDE 104 MMOL/L (98-107); CREATININE SERUM 0.76 MG/DL (0.60-1.30); GFR ESTIMATED > 60; GLUCOSE 174 MG/DL (70-105); POTASSIUM 3.4 MMOL/L (3.6-5.0); SODIUM 139 MMOL/L (135-145)
[2018-12-18] MEDS: HYDROCHLOROTHIAZIDE 12.5 MG (HCTZ) CAP PO SCH (08:28)
[2018-12-18] MEDS: PANTOPRAZOLE 40 MG (PROTONIX) TAB PO SCH (08:28)
[2018-12-18] MEDS: SINEMET CR 50/200 (CARBIDOPA/LEVODOPA SA) TAB PO SCH ×4 (08:28→21:39)
--- NOTE | 2018-12-18 08:35 | Pulmonary Progress Note ---
Subjective Time Seen by a Provider: 08:41 Subjective/Events-last exam No complications noted. Sepsis Event Evaluation Height, Weight, BMI Height: 6'2.00" Weight: 259lbs. 3.0oz. 117.613158he; 33.2 BMI Method:Stated Exam Exam Vital Signs Date Time Temp Pulse Resp B/P (MAP) Pulse Ox O2 Delivery O2 Flow Rate FiO2 12/18/18 08:00 99 Nasal Cannula 2.50 12/18/18 07:00 71 12/18/18 04:00 97.4 66 22 129/67 (87) 99 Nasal Cannula 2.50 12/18/18 01:00 72 12/18/18 00:10 97.8 70 22 136/73 (94) 98 Nasal Cannula 2.50 12/17/18 20:45 Nasal Cannula 2.50 12/17/18 20:35 97.6 71 18 134/78 (96) 99 Nasal Cannula 2.50 12/17/18 19:00 70 12/17/18 17:09 Nasal Cannula 2.50 12/17/18 16:10 97.6 72 18 123/72 (89) 100 Nasal Cannula 2.50 12/17/18 12:42 85 12/17/18 12:00 98.4 81 20 118/75 (89) 100 Nasal Cannula 2.00 12/17/18 09:45 96 Nasal Cannula 2.50 I & O 12/18/18 07:00 Intake Total 6475 ml Output Total 975 ml Balance 5500 ml Height & Weight Height: 6'2.00" Weight: 259lbs. 3.0oz. 117.077331mv; 33.2 BMI Method:Stated General Appearance: No Apparent Distress, Obese HEENT: PERRL/EOMI Neck: Non Tender, Supple Respiratory: Lungs Clear, No Accessory Muscle Use, No Respiratory Distress Cardiovascular: Regular Rate, Rhythm, No Murmur, Tachycardia Capillary Refill: Less Than 3 Seconds Extremity: Non Tender, No Calf Tenderness, No Pedal Edema Neurologic/Psychiatric: Alert, Oriented x3, Normal Mood/Affect Results Lab Laboratory Tests 12/17/18 05:15 12/17/18 15:49 12/18/18 05:40 12/18/18 05:45 Assessment/Plan Assessment/Plan Syncope secondary to acute bilateral PE -Will need at least 6mo of anticoagulation -Currently on Hep gtt per oncology -bilateral dopplers are negative, and echo Colon adenocarcinoma s/p Colon resection 12/10 -PET scan is negative DM -Pt takes Lantus at home. -Restart home meds Anemia -occult stool - is negative -No signs of active bleeding - Protonix JIAN VILLARREAL DO Dec 18, 2018 08:35
[2018-12-18] MEDS: AMANTADINE 10 MG/ML SYRUP (SYMMETREL) CHARGE PER ML PO SCH ×2 (09:52→21:38)
--- NOTE | 2018-12-18 10:00 | Occupational Ther Daily Note ---
OT Current Status-Daily Note Subjective Pt in bed, agrees to treatment. Pt has no reports of pain. Mental Status/Objective Therapy Code Descriptions/Definitions Functional [place] Measure: 0=Not Assessed/NA 4=Minimal Assistance 1=Total Assistance 5=Supervision or Setup 2=Maximal Assistance 6=Modified [place] 3=Moderate Assistance 7=Complete [place] Attachments: IV, Oxygen ADL-Treatment Pt agrees to treatment, states he is feeling better today. Pt declined bathing at this time, will wait until later. Would like to complete grooming. Supine to sit without assist. Gait to restroom without LOB, assist only for IV pole. Pt stood at sink to complete grooming tasks. Pt brushed teeth and washed face without assist. Used urinal without assist while standing. Pt returned to EOB without LOB. Sitting EOB with needs met and RN present after session. Grooming (FIM): 7 OT Short Term Goals Short Term Goals Time Frame: Dec 23, 2018 Grooming(FIM): 5 Bathing(FIM): 5 Lower Body Dressing(FIM): 6 Toileting(FIM): 5 Transfers (B,C,W/C) (FIM): 5 Toilet/Commode Transfer(FIM): 5 1=Demonstrate adherence to instructed precautions during ADL tasks. 2=Patient will verbalize/demonstrate understanding of assistive devices/modifications for ADL. 3=Patient will improve strength/tolerance for activity to enable patient to perform ADL's. OT Photovoltaic Technician Goals Photovoltaic Technician Goals Time Frame: Dec 30, 2018 Grooming(FIM): 6 Bathing(FIM): 6 Bathing Location: L Arm, R Arm, L Upper Leg, R Upper Leg, L Lower Leg (including foot), R Lower Leg (including foot), Chest, Abdomen, Buttocks, Perineal Area Upper Body Dressing(FIM): 6 Lower Body Dressing(FIM): 6 Toileting(FIM): 6 Transfers (B,C,W/C) (FIM): 6 Toilet/Commode Transfer(FIM): 6 Additional Goals: 1-Demonstrate ADL Tasks, 2-Verbalize Understanding, 3- ImproveStrength/Ziggy 1=Demonstrate adherence to instructed precautions during ADL tasks. 2=Patient will verbalize/demonstrate understanding of assistive devices/modifications for ADL. 3=Patient will improve strength/tolerance for activity to enable patient to perform ADL's. OT Education/Plan Discharge Recommendations Plan/Recommendations: Continue POC Treatment Plan/Plan of Care Patient would benefit from OT for education, treatment and training to promote independence in ADL's, mobility, safety and/or upper extremity function for ADL's. Plan of Care: ADL Retraining, Caregiver Training, Functional Mobility, Group Exercise/Act as Ind, UE Funct Exercise/Act Treatment Duration: Dec 30, 2018 Frequency: 4 times per week Estimated Hrs Per Day: .25 hour per day Agreement: Yes Rehab Potential: Fair Time/GCodes Start Time: :31 Stop Time: 09:50 Total Time Billed (hr/min): 19 Billed Treatment Time 1 visit, ADL(19minutes) LEO VILLALOBOS OT Dec 18, 2018 10:00
--- NOTE | 2018-12-18 11:29 | Progress Note - Hospitalist ---
Subjective HPI/CC On Admission Date Seen by Provider: Dec 18, 2018 Time Seen by Provider: 11:28 Patient is a 73-year-old male who presented to the ER due to syncope. He underwent colon resection for newly diagnosed colon cancer on 12/[address] Arango and was discharged on 12/13. He went home and was feeling well except for a neck ache. Due to the neck ache he did not get out of bed much. Yesterday evening he was getting ready for bed and was walking to get his needle for his insulin when he became very short of breath and passed out. His caught him and lowered him to the ground and then called 911. On arrival he was hypoxic and CTA was done which revealed extensive bilateral pulmonary emboli. He was admitted for further management. Subjective/Events-last exam Pt reports doing well. Was able to ambulate 600 feet yesterday. Objective Exam Vital Signs Vital Signs Date Time Temp Pulse Resp B/P (MAP) Pulse Ox O2 Delivery O2 Flow Rate FiO2 12/18/18 08:00 99 Nasal Cannula 2.50 12/18/18 08:00 96.4 20 144/71 (95) 12/18/18 07:00 71 Capillary Refill : Less Than 3 Seconds General Appearance: No Apparent Distress, Obese Respiratory: Lungs Clear, No Accessory Muscle Use, No Respiratory Distress Cardiovascular: Regular Rate, Rhythm, No Murmur Gastrointestinal: Soft, Tenderness (appropriatley) Extremity: Non Tender, No Pedal Edema Neurologic/Psychiatric: Alert, Oriented x3, Normal Mood/Affect Results/Procedures Lab Laboratory Tests 12/17/18 15:49 12/18/18 05:40 12/18/18 05:45 Patient resulted labs reviewed. Imaging: Reviewed Imaging Films, Reviewed Imaging Report Assessment/Plan Assessment and Plan Assess & Plan/Chief Complaint Bilateral PE Diagnosis/Problems Diagnosis/Problems (1) Bilateral pulmonary embolism Status: Acute Assessment & Plan: Extensive bilateral emboli on CTA Switched to heparin by Heme last night, will monitor H&H for total 48 hours and if stable can DC home on Eliquis Pulm consulted, appreciate recs Dopplers negative (2) Hypertension Status: Chronic Assessment & Plan: Cont home meds Qualifiers: Hypertension type: essential hypertension Qualified Codes: I10 - Essential (primary) hypertension (3) Parkinsons disease Status: Chronic Assessment & Plan: sinemet (4) Colon cancer Status: Chronic Assessment & Plan: Follows with Dr Arango Set up to see Dr Farah as an outpatient Qualifiers: Colon location: unspecified part of colon Qualified Codes: C18.9 - Malignant neoplasm of colon, unspecified (5) Diabetes mellitus Status: Chronic Assessment & Plan: home basal insulin SSI Qualifiers: Diabetes mellitus type: type 2 Diabetes mellitus continuous churn buttermaker insulin use: w ith half-way use Diabetes mellitus complication status: without complication Qualified Codes: E11.9 - Type 2 diabetes mellitus without complications; Z79.4 - [facility]FP (current) use of insulin Clinical Quality Measures DVT/VTE Risk/Contraindication: Risk Factor Score Per Nursin RFS Level Per Nursing on Admit: 2=Moderate MIRACLE ORNELAS MD Dec 18, 2018 11:29
--- NOTE | 2018-12-18 11:54 | Physical Therapy Daily Note ---
PT Daily Note-Current Subjective Agrees to PT. no complaints. Transfers Therapy Code Descriptions/Definitions Functional [place] Measure: 0=Not Assessed/NA 4=Minimal Assistance 1=Total Assistance 5=Supervision or Setup 2=Maximal Assistance 6=Modified [place] 3=Moderate Assistance 7=Complete [place] Therapy Quality Codes: 6 Independent with activity with or without an assistive device 5 Patient requires set up or clean up by helper. Patient completes activity by themselves 4 Supervision or touching assist (CGA). [place] provide cues , steadying assist 3 The helper provides less than half the effort to complete the activity 2 The helper provides more than half the effort to complete the activity 1 Dependent. The helper does all the effort to complete an activity 7 Patient refused to complete or attempt activity 9 The patient did not perform the activity before the current illness or injury 88 Not attempted due to Medical conditions or safety concerns Weight Bearing Right Lower Extremity: Right Weight Bearing/Tolerated Left Lower Extremity: Left Weight Bearing/Tolerated Treatments Pt is mod indep with sit to stand. Pt ambulate x 600 ft with FWW with SBA to mod indep. No LOb or safety concerns noted. Pt abl eto walk in his room without an AD. Pt in bed post treatment with needs met. Oxygen in situ. Assessment Current Status: Good Progress Safe gait and mobiliyt PT Short Term Goals Short Term Goals Time Frame: Dec 23, 2018 Transfers (B,C,W/C) (FIM): 5 Gait (FIM): 5 Gait Distance Comment: 150' Gait Level of Assist: 5 Gait Assistive Device: FWW PT Plan Problem List Problem List: Activity Tolerance, Functional Strength, Safety Treatment/Plan Treatment Plan: Continue Plan of Care Treatment Plan: Bed Mobility, Education, Functional Activity Ziggy, Functional Strength, Gait, Safety, Therapeutic Exercise, Transfers Treatment Duration: Dec 23, 2018 Frequency: 6 times per week Estimated Hrs Per Day: .25 hour per day Patient and/or Family Agrees t: Yes Discharge Recommendations Plan pt benefits from skilled intervnetion to ensure mobiltiy due to hx of PE Time/GCodes Time In: 1045 Time Out: 1100 Total Billed Treatment Time: 15 Total Billed Treatment visit GT 15 STONEY SCOTT PT Dec 18, 2018 11:54
--- NOTE | 2018-12-18 11:56 | Oncology Progress Note ---
Subjective Date Seen by a Provider: Dec 18, 2018 Time Seen by a Provider: 11:50 Subjective/Events-last exam Pt started on Heparin drip last night due to the decrease of Hb from 10 to 9.2. Eliquis and IVF were stopped. Hb today 9.3. He is feeling better today. He is able to walk around with O2. No bowel movement yet Able to eat soft food without problems. Data Review Labs Laboratory Tests 12/17/18 15:49 12/18/18 05:40 12/18/18 05:45 Laboratory Tests 12/15/18 23:47: Glucometer 283H 12/15/18 23:58: White Blood Count 14.7H, Red Blood Count 4.15L, Hemoglobin 10.0L, Hematocrit 35L , Mean Corpuscular Hemoglobin 24L, Mean Corpuscular Hemoglobin Concent 29L, Red Cell Distribution Width 15.2H, Neutrophils (%) (Auto) 80H, Lymphocytes (%) (Auto) 11L, Neutrophils # (Auto) 11.8H, Anion Gap 18H, Glucose Level 335H, Corrected Calcium 10.4H, Pro-B-Type Natriuretic Peptide 271.4H, Albumin 2.7L 12/16/18 03:45: Glucometer 312H 12/16/18 04:45: White Blood Count 12.8H, Red Blood Count 4.07L, Hemoglobin 9.9L, Hematocrit 33L, Mean Corpuscular Hemoglobin 24L, Mean Corpuscular Hemoglobin Concent 31L, Red Cell Distribution Width 15.3H, Neutrophils (%) (Auto) 85H, Lymphocytes (%) (Auto) 8L, Neutrophils # (Auto) 10.8H, Glucose Level 361H, Magnesium Level 1.4L 12/16/18 06:32: Glucometer 293H 12/16/18 11:06: Glucometer 306H 12/16/18 15:58: Glucometer 256H 12/16/18 20:57: Glucometer 353H 12/17/18 05:15: Red Blood Count 3.82L, Hemoglobin 9.3L, Hematocrit 31L, Mean Corpuscular Hemoglobin 24L, Mean Corpuscular Hemoglobin Concent 30L, Red Cell Distribution Width 15.8H, Potassium Level 3.2L, Glucose Level 167H, Magnesium Level 1.7L 12/17/18 11:14: Glucometer 245H 12/17/18 15:49: Red Blood Count 3.77L, Hemoglobin 9.2L, Hematocrit 30L, Mean Corpuscular Hemoglobin 24L, Mean Corpuscular Hemoglobin Concent 30L, Red Cell Distribution Width 15.6H, Prothrombin Time 15.2H, Activated Partial Thromboplast Time 36H 12/17/18 16:10: Glucometer 281H 12/17/18 21:20: Glucometer 253H 12/17/18 21:50: 12/18/18 00:59: Activated Partial Thromboplast Time 54H 12/18/18 05:40: Potassium Level 3.4L, Glucose Level 174H 12/18/18 05:45: Red Blood Count 3.80L, Hemoglobin 9.3L, Hematocrit 31L, Mean Corpuscular Hemoglobin Concent 30L, Red Cell Distribution Width 15.3H, Glucometer 179H 12/18/18 07:50: Activated Partial Thromboplast Time 84H 12/18/18 11:11: Glucometer 255H Laboratory Tests 12/17/18 15:49 12/18/18 05:40 12/18/18 05:45 Physical Exam Vital Signs Vital Signs - First Documented 12/15/18 12/16/18 23:10 02:11 Temp 97.1 Pulse 102 Resp 26 B/P (MAP) 142/105 (117) Pulse Ox 94 O2 Delivery Room Air O2 Flow Rate 2.00 Capillary Refill : Less Than 3 Seconds Height, Weight, BMI Height: 6'2.00" Weight: 259lbs. 3.0oz. 117.848473fw; 33.2 BMI Method:Stated General Appearance: No Apparent Distress Neck: Non Tender, Supple Respiratory: Lungs Clear, No Accessory Muscle Use, No Respiratory Distress Cardiovascular: Regular Rate, Rhythm, No Murmur Gastrointestinal: Soft, Other (obese, 10cm surgical incision with steples. No bleeding. No redness. ) Extremity: Non Tender, No Calf Tenderness, No Pedal Edema Neurologic/Psychiatric: Alert, Oriented x3, Normal Mood/Affect Impression & Plan Impression & Plan IMP: 1. Adenocarcinoma of the descending colon, s/p lap surgical resection 12/10/2018. Pending on staging work up. 2. Hypercoagulopathy and bilateral extensive PE and syncope. He was on Lovenox treatment and then Eliquis, stopped yesterday due to dropping Hb. However, pt needs to be on anticoagulation treatment even if his Hb drops and may suggest small bleeding, because the risk and damage of PE is way higher than the bleeding. 3. Anemia from blood loss. His Hb drop could also be IVF dilution effect. However, it is almost impossible to differentiate them as of yesterday. The IVF was stopped last night. 4. Hypoxia from PE but hemodynamic stable. Rec: 1. Continue Heparin drip and monitoring CBC and PTT for next 2 days. Check the Hb bid. If Hb is below 8, we can transfuse to keep his Hb above 8. 2. Stool occult blood test if he has a bowel movement. However, it is only meaningful if it is negative. We will feel more confident that Hb drop was IVF dilution. However, if it is positive, it could be the old bleeding from the surgery and the active bleeding. 3. If his Hb is stable in next 2 days, then we can start him on Eliquis 5mg bid rather than 10mg bid since he will pass the first 7 days. Once he is able to transition to Eliquis, he can be discharged home and I will see him at the cancer center to finish the work up of his colon cancer. 4. Dr Terry adoption social worker for the weekend. I will be back on Friday. Clinical Quality Measures DVT/VTE Risk/Contraindication: Risk Factor Score Per Nursin RFS Level Per Nursing on Admit: 2=Moderate VALENTINE BUSTAMANTE MD Dec 18, 2018 11:56
--- NOTE | 2018-12-18 13:53 | NUR ---
patient was on 3 L NC and O2 sat was 96% and then O2 was removed and was on RA for 45 mins and O2 sat was at 91% on RA; patient walked for 3 mins and O2 sat went down to 87% and O2 was placed on patient and it took 3 L on exertion to get patients O2 sat while walking to 90% and stay up. Patient is not requiring O2 at rest but is requiring 3 L NC on exertion.
[2018-12-18] MEDS: ATORVASTATIN 40 MG (LIPITOR) TABLET PO SCH (21:39)
[2018-12-18] MEDS: LOSARTAN 100 MG (COZAAR) TABLET PO SCH (21:39)
[2018-12-19 04:00] VITALS: BP 140/75
[2018-12-19 05:10] VITALS: BP 140/65
[2018-12-19] MEDS: inSUlin ASPART (NovoLOG) 1 UNIT/0.01 ML (CHARGE PER UNIT) SC SCH ×4 (05:39→22:00)
[2018-12-19] MEDS: HEParin DRIP 25000 UNIT/500ML 500 ML IV SCH ×2 (05:42→22:01)
[2018-12-19 08:00] VITALS: BP 134/70
--- NOTE | 2018-12-19 08:55 | Pulmonary Progress Note ---
Subjective Time Seen by a Provider: 11:47 Subjective/Events-last exam no complications noted Sepsis Event Evaluation Height, Weight, BMI Height: 6'2.00" Weight: 259lbs. 3.8oz. 117.724564vj; 33.2 BMI Method:Stated Exam Exam Vital Signs Date Time Temp Pulse Resp B/P (MAP) Pulse Ox O2 Delivery O2 Flow Rate FiO2 12/19/18 08:00 98.1 70 18 134/70 (91) 96 Nasal Cannula 1.00 12/19/18 05:10 97.4 66 20 140/65 (90) 96 Nasal Cannula 1.00 12/19/18 04:00 97.4 66 20 140/75 (96) 96 Nasal Cannula 1.00 12/19/18 01:00 73 12/18/18 23:30 97.7 74 20 149/79 (102) 96 Nasal Cannula 1.00 12/18/18 20:00 Nasal Cannula 2.50 12/18/18 19:45 98.5 74 22 116/67 (83) 98 Nasal Cannula 1.00 12/18/18 19:00 70 12/18/18 16:17 98.3 72 20 125/76 (92) 97 Nasal Cannula 1.00 12/18/18 13:25 96 3.00 12/18/18 12:56 78 12/18/18 12:00 97.0 74 20 119/79 (92) 99 Nasal Cannula 1.00 I & O 12/19/18 07:00 Intake Total 1820 ml Output Total 1600 ml Balance 220 ml Height & Weight Height: 6'2.00" Weight: 259lbs. 3.8oz. 117.696062qu; 33.2 BMI Method:Stated General Appearance: No Apparent Distress, Obese Respiratory: Lungs Clear, No Accessory Muscle Use, No Respiratory Distress Cardiovascular: Regular Rate, Rhythm, No Murmur Capillary Refill: Less Than 3 Seconds Extremity: Non Tender, No Pedal Edema Neurologic/Psychiatric: Alert, Oriented x3, Normal Mood/Affect Results Lab Laboratory Tests 12/17/18 15:49 12/18/18 05:40 12/18/18 05:45 12/19/18 02:41 Assessment/Plan Assessment/Plan Syncope secondary to acute bilateral PE -Will need at least 6mo of anticoagulation -Currently on Hep gtt per oncology -bilateral dopplers are negative, and echo Colon adenocarcinoma s/p Colon resection 12/10 -PET scan is negative DM -Pt takes Lantus at home. -Restart home meds Anemia -occult stool - is negative -No signs of active bleeding - Protonix JIAN VILLARREAL DO Dec 19, 2018 08:55
[2018-12-19] MEDS: SINEMET CR 50/200 (CARBIDOPA/LEVODOPA SA) TAB PO SCH ×4 (09:19→21:59)
[2018-12-19] MEDS: PANTOPRAZOLE 40 MG (PROTONIX) TAB PO SCH (09:19)
[2018-12-19] MEDS: AMANTADINE 10 MG/ML SYRUP (SYMMETREL) CHARGE PER ML PO SCH ×2 (09:19→21:59)
[2018-12-19] MEDS: HYDROCHLOROTHIAZIDE 12.5 MG (HCTZ) CAP PO SCH (09:19)
[2018-12-19] MEDS: HEParin 1000 UNIT/ML (10ML VIAL) FOR BOLUS IV SCH (09:56)
[2018-12-19 12:00] VITALS: BP 130/63
--- NOTE | 2018-12-19 12:09 | Progress Note ---
Standard Progress Note Progress Notes/Assess & Plan Date Seen by a Provider: Dec 19, 2018 Time Seen by a Provider: 12:02 Progress/Assessment & Plan 73-year-old male admitted to the hospital with syncope and shortness of breath. CTA showing bilateral pulmonary embolism with right heart strain. Patient started on Lovenox and Eliquis with slight drop in hemoglobin. Anticoagulation was switched to heparin. Patient is feeling better today and ambulating in hallway. Shortness of breath is improving. Hemoglobin 9.2 and stable today morning. PTT therapeutic. Continue heparin and start full dose Eliquis today evening. Monitor CBC in a.m. If hemoglobin is stable, can discontinue heparin. He will need anticoagulation for 6 months because of high clot burden. He was diagnosed with colon cancer and underwent right hemicolectomy on 12/10/2018 with pT3 pN0 cM0 stage II adenocarcinoma of colon with intact mismatch repair prot ein. He will need surveillance but does not require adjuvant chemotherapy. If patient is being discharged tomorrow, scheduled follow-up appointment at cancer Center with Dr. Farah in approximately 2 weeks. CARMELO COHEN Dec 19, 2018 12:09
--- NOTE | 2018-12-19 12:33 | Progress Note - Hospitalist ---
Subjective HPI/CC On Admission Date Seen by Provider: Dec 19, 2018 Time Seen by Provider: 12:31 Patient is a 73-year-old male who presented to the ER due to syncope. He underwent colon resection for newly diagnosed colon cancer on 12/[address] Arango and was discharged on 12/13. He went home and was feeling well except for a neck ache. Due to the neck ache he did not get out of bed much. Yesterday evening he was getting ready for bed and was walking to get his needle for his insulin when he became very short of breath and passed out. His caught him and lowered him to the ground and then called 911. On arrival he was hypoxic and CTA was done which revealed extensive bilateral pulmonary emboli. He was admitted for further management. Subjective/Events-last exam Patient reports feeling well. Was able to walk and felt better than yesterday. This plan for transition to Eliquis and hopeful discharge in the morning. Objective Exam Vital Signs Vital Signs Date Time Temp Pulse Resp B/P (MAP) Pulse Ox O2 Delivery O2 Flow Rate FiO2 12/19/18 12:00 98.4 65 18 130/63 (85) 97 Nasal Cannula 1.00 Capillary Refill : Less Than 3 Seconds General Appearance: No Apparent Distress, Obese Respiratory: Lungs Clear, No Accessory Muscle Use, No Respiratory Distress Cardiovascular: Regular Rate, Rhythm, No Murmur Extremity: Non Tender, No Pedal Edema Neurologic/Psychiatric: Alert, Oriented x3, Normal Mood/Affect Skin: Normal Color Results/Procedures Lab Laboratory Tests 12/19/18 02:11 12/19/18 02:41 Patient resulted labs reviewed. Assessment/Plan Assessment and Plan Assess & Plan/Chief Complaint Bilateral PE Diagnosis/Problems Diagnosis/Problems (1) Bilateral pulmonary embolism Status: Acute Assessment & Plan: Extensive bilateral emboli on CTA discussed with Dr Terry and will resume eliquis today and bridge with heparin until tomorrow AM if hemoglobin stable can DC home tomorrow Pulm consulted, appreciate recs Dopplers negative (2) Hypertension Status: Chronic Assessment & Plan: Cont home meds Qualifiers: Hypertension type: essential hypertension Qualified Codes: I10 - Essential (primary) hypertension (3) Parkinsons disease Status: Chronic Assessment & Plan: sinemet (4) Colon cancer Status: Chronic Assessment & Plan: Follows with Dr Arango Set up to see Dr Farah as an outpatient Qualifiers: Colon location: unspecified part of colon Qualified Codes: C18.9 - Malignant neoplasm of colon, unspecified (5) Diabetes mellitus Status: Chronic Assessment & Plan: home basal insulin SSI Qualifiers: Diabetes mellitus type: type 2 Diabetes mellitus snf insulin use: with snf use Diabetes mellitus complication status: without complication Qualified Codes: E11.9 - Type 2 diabetes mellitus without complications; Z79.4 - retirement (current) use of insulin Clinical Quality Measures DVT/VTE Risk/Contraindication: Risk Factor Score Per Nursin RFS Level Per Nursing on Admit: 2=Moderate MIRACLE ORNELAS MD Dec 19, 2018 12:33
--- NOTE | 2018-12-19 13:28 | Physical Therapy Daily Note ---
PT Daily Note-Current Subjective Pt. in bed, readily agrees to therapy. No c/o pain. Mental Status Attachments: Oxygen, IV Transfers Therapy Code Descriptions/Definitions Functional [place] Measure: 0=Not Assessed/NA 4=Minimal Assistance 1=Total Assistance 5=Supervision or Setup 2=Maximal Assistance 6=Modified [place] 3=Moderate Assistance 7=Complete [place] Therapy Quality Codes: 6 Independent with activity with or without an assistive device 5 Patient requires set up or clean up by helper. Patient completes activity by themselves 4 Supervision or touching assist (CGA). [place] provide cues , steadying assist 3 The helper provides less than half the effort to complete the activity 2 The helper provides more than half the effort to complete the activity 1 Dependent. The helper does all the effort to complete an activity 7 Patient refused to complete or attempt activity 9 The patient did not perform the activity before the current illness or injury 88 Not attempted due to Medical conditions or safety concerns Transfers (B, C, W/C) (FIM): 6 Supine to/from Sit: 6 Sit to/from Stand: 4 Weight Bearing Right Lower Extremity: Right Weight Bearing/Tolerated Left Lower Extremity: Left Weight Bearing/Tolerated Gait Training Gait (FIM): 6 Distance (FIM): 3=150 ft Distance: 600 ft Gait Level of Assist: 6 Gait Persons Needed: 1 Gait Assistive Device: FWW assist with IV and O2 Treatments gait training Assessment Current Status: Good Progress Pt. is mod (I) with all transfers and ambulation in hallways. He is progressing very well with therapy. PT Short Term Goals Short Term Goals Time Frame: Dec 23, 2018 Transfers (B,C,W/C) (FIM): 5 Gait (FIM): 5 Gait Distance Comment: 150' Gait Level of Assist: 5 Gait Assistive Device: FWW PT Plan Treatment/Plan Treatment Plan: Continue Plan of Care Treatment Plan: Bed Mobility, Education, Functional Activity Ziggy, Functional Strength, Gait, Safety, Therapeutic Exercise, Transfers Treatment Duration: Dec 23, 2018 Frequency: 6 times per week Estimated Hrs Per Day: .25 hour per day Patient and/or Family Agrees t: Yes Time/GCodes Time In: 830 Time Out: 845 Total Billed Treatment Time: 15 Total Billed Treatment 1, GT 15' JOY HERRERA PT Dec 19, 2018 13:28
[2018-12-19] MEDS: APIXABAN 5 MG (ELIQUIS) TABLET PO SCH ×2 (14:04→21:59)
[2018-12-19 15:55] VITALS: BP 106/58
[2018-12-19] MEDS ORDERED: APIX5TAB PO (17:56)
[2018-12-19 19:45] VITALS: BP 110/59
[2018-12-19] MEDS: ATORVASTATIN 40 MG (LIPITOR) TABLET PO SCH (21:59)
[2018-12-19] MEDS: LOSARTAN 100 MG (COZAAR) TABLET PO SCH (22:03)
[2018-12-20 00:34] VITALS: BP 142/73
[2018-12-20 04:00] VITALS: BP 130/73
[2018-12-20 05:40] LABS: HEMOGLOBIN 9.7 G/DL (13.3-17.7); MEAN PLATELET VOLUME 9.8 FL (7.4-10.4); RED CELL DISTRIBUTION WIDTH 15.2 % (10.0-14.5); WHITE BLOOD COUNT 6.7 10^3/uL (4.3-11.0)
[2018-12-20 05:47] LABS: INR 1.2 (0.8-1.4); PROTHROMBIN TIME PATIENT 15.9 SEC (12.2-14.7)
[2018-12-20] MEDS: inSUlin ASPART (NovoLOG) 1 UNIT/0.01 ML (CHARGE PER UNIT) SC SCH ×2 (06:06→12:34)
--- NOTE | 2018-12-20 07:27 | Pulmonary Progress Note ---
Sepsis Event Evaluation Height, Weight, BMI Height: 6'2.00" Weight: 255lbs. 6.4oz. 115.200347hx; 33.2 BMI Method:Stated Exam Exam Vital Signs Date Time Temp Pulse Resp B/P (MAP) Pulse Ox O2 Delivery O2 Flow Rate FiO2 12/20/18 04:00 97.5 81 20 130/73 (92) 92 Nasal Cannula 1.50 12/20/18 01:00 65 12/20/18 00:34 97.6 75 20 142/73 (96) 94 Nasal Cannula 1.50 12/19/18 20:00 Nasal Cannula 2.50 12/19/18 19:45 97.6 70 20 110/59 (76) 99 Nasal Cannula 1.50 12/19/18 19:00 71 12/19/18 15:55 98.0 72 18 106/58 (74) 97 Nasal Cannula 1.50 12/19/18 13:00 73 12/19/18 12:00 98.4 65 18 130/63 (85) 97 Nasal Cannula 1.00 12/19/18 10:54 Nasal Cannula 1.00 12/19/18 08:00 98.1 70 18 134/70 (91) 96 Nasal Cannula 1.00 12/19/18 08:00 Nasal Cannula 2.50 I & O 12/20/18 07:00 Intake Total 1630 ml Output Total 500 ml Balance 1130 ml Height & Weight Height: 6'2.00" Weight: 255lbs. 6.4oz. 115.798912xq; 33.2 BMI Method:Stated General Appearance: No Apparent Distress, Obese Respiratory: Lungs Clear, No Accessory Muscle Use, No Respiratory Distress Cardiovascular: Regular Rate, Rhythm, No Murmur Capillary Refill: Less Than 3 Seconds Extremity: Non Tender, No Pedal Edema Neurologic/Psychiatric: Alert, Oriented x3, Normal Mood/Affect Skin: Normal Color Results Lab Laboratory Tests 12/19/18 02:11 12/19/18 02:41 12/20/18 04:58 Assessment/Plan Assessment/Plan Syncope secondary to acute bilateral PE -Will need at least 6mo of anticoagulation -Currently on Hep gtt with eliquis bridging per oncology -Eliquis does not need bridging with heparin. I recommend d/cing Hep gtt and continuing with eliquis. -bilateral dopplers are negative, and echo Colon adenocarcinoma s/p Colon resection 12/10 -PET scan is negative DM -Pt takes Lantus at home. -Restart home meds Anemia -occult stool - is negative -No signs of active bleeding - Protonix Oncology is managing anticoagulation. I am going to sign off please call with any questions. JIAN VILLARREAL DO Dec 20, 2018 07:27
--- NOTE | 2018-12-20 07:56 | NUR ---
O2 WAS REMOVED DUE TO O2 SAT OF 95 ON 1.5 L; O2 QUALIFICATION WAS DONE A COUPLE DAYS AGO: PATIENT DOES NOT NEED O2 AT REST BUT DOES NEED 3 L ON EXERTION. RN WAS NOTIFIED THAT PATIENT WAS REMOVED OFF O2 AT THIS TIME AND WHY.
[2018-12-20 08:00] VITALS: BP 111/72
[2018-12-20] MEDS: SINEMET CR 50/200 (CARBIDOPA/LEVODOPA SA) TAB PO SCH ×2 (08:48→12:35)
[2018-12-20] MEDS: APIXABAN 5 MG (ELIQUIS) TABLET PO SCH (08:48)
[2018-12-20] MEDS: HYDROCHLOROTHIAZIDE 12.5 MG (HCTZ) CAP PO SCH (08:48)
[2018-12-20] MEDS: AMANTADINE 10 MG/ML SYRUP (SYMMETREL) CHARGE PER ML PO SCH (08:48)
[2018-12-20] MEDS: PANTOPRAZOLE 40 MG (PROTONIX) TAB PO SCH (08:48)
--- NOTE | 2018-12-20 11:27 | Discharge Inst-Simple/Standard ---
Discharge Inst-Standard Discharge Medications New, Converted or Re-Newed RX: Transmitted to Pharmacy Patient Instructions/Follow Up Plan of Care/Instructions/FU: Please continue to take her medications as written. Please follow-up with Dr. Coughlin in the next week, with Dr. Triana the next 2-3 weeks, and with Dr. Arango as scheduled. Activity as Tolerated: Yes Discharge Diet: No Restrictions Return to The Hospital For: Blood in your stool, chest pain, shortness of breath, passing out, if you feel you're getting worse. MIRACLE ORNELAS MD Dec 20, 2018 11:27
--- NOTE | 2018-12-20 11:29 | Discharge Summary ---
Diagnosis/Chief Complaint Date of Admission Dec 16, 2018 at 02:15 Date of Discharge Discharge Date: Dec 18, 2018 Admission Diagnosis Bilateral PE Discharge Diagnosis (1) Bilateral pulmonary embolism Status: Acute Assessment & Plan: Extensive bilateral emboli on CTA discussed with Dr Terry and will resume eliquis today and bridge with heparin until tomorrow AM if hemoglobin stable can DC home tomorrow Pulm consulted, appreciate recs Dopplers negative (2) Hypertension Status: Chronic Assessment & Plan: Cont home meds (3) Parkinsons disease Status: Chronic Assessment & Plan: sinemet (4) Colon cancer Status: Chronic Assessment & Plan: Follows with Dr Arango Set up to see Dr Farah as an outpatient (5) Diabetes mellitus Status: Chronic Assessment & Plan: home basal insulin SSI Discharge Summary Discharge Physical Exam Allergies: Coded Allergies: No Known Drug Allergies (Verified , 11/10/18) Vitals & I&Os Vital Signs Date Time Temp Pulse Resp B/P (MAP) Pulse Ox O2 Delivery O2 Flow Rate FiO2 12/20/18 08:00 97.8 69 18 111/72 (85) 96 Nasal Cannula 1.50 Hospital Course Labs (last 24 hrs) Laboratory Tests 12/19/18 14:00: Activated Partial Thromboplast Time 132*H 12/19/18 15:55: Glucometer 248H 12/19/18 20:35: Activated Partial Thromboplast Time 91H 12/19/18 20:45: Glucometer 215H 12/20/18 02:32: Activated Partial Thromboplast Time 81H 12/20/18 04:58: White Blood Count 6.7, Red Blood Count 4.03L, Hemoglobin 9.7L, Hematocrit 32L, Mean Corpuscular Volume 80, Mean Corpuscular Hemoglobin 24L, Mean Corpuscular Hemoglobin Concent 30L, Red Cell Distribution Width 15.2H, Platelet Count 292, Mean Platelet Volume 9.8, Prothrombin Time 15.9H, INR Comment 1.2 12/20/18 05:51: Glucometer 142H Microbiology 12/16/18 MRSA Screen - Final, Complete MRSA not isolated Patient resulted labs reviewed. Pending Labs Laboratory Tests 12/20/18 04:58: White Blood Count 6.7, Red Blood Count 4.03, Hemoglobin 9.7, Hematocrit 32, Mean Corpuscular Volume 80, Mean Corpuscular Hemoglobin 24, Mean Corpuscular Hemoglobin Concent 30, Red Cell Distribution Width 15.2, Platelet Count 292, Mean Platelet Volume 9.8, Prothrombin Time 15.9, INR Comment 1.2 12/20/18 05:51: Glucometer 142 Discharge Home Medications: Active Scripts Active Eliquis (Apixaban) 5 Mg Tablet 5 Mg PO BID 30 Days TAKE 2 TABLETS BID X 7 DAYS, THEN 1 TABLET BID Reported Advil (Ibuprofen) 200 Mg Tablet 200 Mg PO Q4H PRN TAKES 1 IBU ALONG WITH 2 EXTRA STENGTH TYLENOL OCCASIONALLY IF PAIN IS GREATER THAN WHAT 2 TYLENOL WOULD COVER. Tylenol Extra Strength (Acetaminophen) 500 Mg Tablet 1,000 Mg PO Q4H PRN Sildenafil Citrate 100 Mg Tablet 100 Mg PO UD PRN Nicotine Gum (Nicotine Polacrilex) 4 Mg Gum 4 Mg BC Q6H PRN Fluticasone Propionate 16 Gm [place].susp 2 Sprays NS DAILY PRN Glipizide 10 Mg Tablet 10 Mg PO BID Diane's Wort 300 Mg Capsule 300 Mg PO HS PRN DOES NOT TAKE IF HE IS TAKING TRAZODONE Vitamin D3 (Cholecalciferol (Vitamin D3)) 2,000 Unit Capsule 2,000 Unit PO DAILY Vitamin C (Ascorbate Calcium) 500 Mg Tablet 500 Mg PO DAILY Hydrochlorothiazide 12.5 Mg Tablet 12.5 Mg PO DAILY Atorvastatin Calcium 80 Mg Tablet 40 Mg PO HS TAKES 1/2 (80MG) TABLET Carbidopa-Levo ER 50-200 Tab (Carbidopa/Levodopa) 1 Each Tablet.er 1 Tab PO QID Alogliptin (Alogliptin Benzoate) 25 Mg Tablet 25 Mg PO DAILY Amantadine (Amantadine HCl) 100 Mg Tablet 50 Mg PO BID TAKES 1/2 (100MG) TABLET Trazodone HCl 100 Mg Tablet 100 Mg PO HS PRN Losartan Potassium 100 Mg Tablet 100 Mg PO HS Lantus Solostar (Insulin Glargine,Hum.rec.anlog) 100 Unit/1 Ml Insuln.pen 55 Unit SQ HS Instructions to patient/family Please see electronic discharge instructions given to patient. Clinical Quality Measures DVT/VTE Risk/Contraindication: Risk Factor Score Per Nursin RFS Level Per Nursing on Admit: 2=Moderate Problem Qualifiers (1) Hypertension: Hypertension type: essential hypertension Qualified Codes: I10 - Essential (primary) hypertension (2) Colon cancer: Colon location: unspecified part of colon Qualified Codes: C18.9 - Malignant neoplasm of colon, unspecified (3) Diabetes mellitus: Diabetes mellitus type: type 2 Diabetes mellitus penitentiary insulin use: with penitentiary use Diabetes mellitus complication status: without complication Qualified Codes: E11.9 - Type 2 diabetes mellitus without complications; 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
[2018-12-20 12:00] VITALS: BP 154/76
--- NOTE | 2018-12-20 12:45 | NUR ---
TELEMETRY AND IV DC'D. O2 HAS BEEN DELIVERED. WAITING ON RIDE FOR DISCHARGE.
--- NOTE | 2018-12-20 13:54 | NUR ---
RX REVIEWED AND INST GIVEN AND VERBALIZED UNDERSTANDING. DC'D PER WC.
[2018-12-26] MEDS ORDERED: APIXABAN 5 MG (ELIQUIS) TABLET PO SCH (09:00)
== END 2018-12-20 13:53 | disposition home or self-care (01) | DRG 176 ==
LOC: EDUNIT# 23:07 → ER FS 23:08 → ICU 12-16 02:15 → 4TH 12-16 08:40
PROVIDERS: ADMIT Internal Medicine; ATTEND Family Medicine
DX: I26.99 Other pulmonary embolism without acute cor pulmonale (principal); C18.6 Malignant neoplasm of descending colon; I10 Essential (primary) hypertension; G20 Parkinson's disease; E11.9 Type 2 diabetes mellitus without complications; E78.00 Pure hypercholesterolemia, unspecified; D50.0 Iron deficiency anemia secondary to blood loss (chronic); E83.42 Hypomagnesemia; I07.1 Rheumatic tricuspid insufficiency; Z79.4 Long term (current) use of insulin; Z90.49 Acquired absence of other specified parts of digestive tract
CPT/HCPCS: 36415; 70450; 71045; 71275; 72125; 80048; 80053; 82274; 82962; 83735; 83880; 84100; 84484; 85007; 85018; 85025; 85027; 85049; 85610; 85730; 87081; 93005; 93041; 93306; 93970; 94664; 94760; 94761; 96372

== ENCOUNTER 2019-03-11 09:34 | Outpatient (RCR) | payer OTHER ==
[2019-02-04 10:55] LABS: BASOPHILS % (AUTO) 0 % (0-10); EOSINOPHILS # (AUTO) 0.2 10^3/uL (0.0-0.3); EOSINOPHILS % (AUTO) 2 % (0-10); HEMATOCRIT 38 % (40-54); HEMOGLOBIN 11.4 G/DL (13.3-17.7); LYMPHOCYTES # (AUTO) 1.9 X 10^3 (1.0-4.0); LYMPHOCYTES % (AUTO) 24 % (12-44); MEAN CORPUSCULAR HEMOGLOBIN 23 PG (25-34); MEAN CORPUSCULAR HGB CONC 30 G/DL (32-36); MEAN CORPUSCULAR VOLUME 79 FL (80-99); MEAN PLATELET VOLUME 9.5 FL (7.4-10.4); MONOCYTES # (AUTO) 0.6 X 10^3 (0.0-1.0); MONOCYTES % (AUTO) 8 % (0-12); NEUTROPHILS # (AUTO) 5.4 X 10^3 (1.8-7.8); NEUTROPHILS % (AUTO) 66 % (42-75); PLATELET COUNT 310 10^3/uL (130-400); RED CELL DISTRIBUTION WIDTH 15.6 % (10.0-14.5); WHITE BLOOD COUNT 8.1 10^3/uL (4.3-11.0)
[2019-02-04 11:21] LABS: ALANINE AMINOTRANSFERASE 15 U/L (0-55); ALBUMIN 3.4 GM/DL (3.2-4.5); ALKALINE PHOSPHATASE 93 U/L (40-136); BILIRUBIN,TOTAL 0.4 MG/DL (0.1-1.0); BUN/CREATININE RATIO 18; CARBON DIOXIDE 30 MMOL/L (21-32); CHLORIDE 102 MMOL/L (98-107); CREATININE SERUM 1.01 MG/DL (0.60-1.30); GFR ESTIMATED > 60; GLUCOSE 268 MG/DL (70-105); POTASSIUM 4.1 MMOL/L (3.6-5.0); SODIUM 139 MMOL/L (135-145); TOTAL PROTEIN 6.8 GM/DL (6.4-8.2)
[~2019-03-11 09:34] MED LIST changes: +ACET-2267 PO; +APIX5TAB PO; +IBUP-30 PO
[2019-03-11 09:57] LABS: BASOPHILS % (AUTO) 0 % (0-10); EOSINOPHILS # (AUTO) 0.2 10^3/uL (0.0-0.3); EOSINOPHILS % (AUTO) 2 % (0-10); HEMATOCRIT 37 % (40-54); HEMOGLOBIN 11.3 G/DL (13.3-17.7); LYMPHOCYTES % (AUTO) 26 % (12-44); MEAN CORPUSCULAR HEMOGLOBIN 24 PG (25-34); MEAN CORPUSCULAR HGB CONC 31 G/DL (32-36); MEAN CORPUSCULAR VOLUME 78 FL (80-99); MEAN PLATELET VOLUME 9.7 FL (7.4-10.4); MONOCYTES # (AUTO) 0.6 X 10^3 (0.0-1.0); MONOCYTES % (AUTO) 7 % (0-12); NEUTROPHILS % (AUTO) 64 % (42-75); PLATELET COUNT 315 10^3/uL (130-400); WHITE BLOOD COUNT 7.8 10^3/uL (4.3-11.0)
[2019-03-11 10:21] LABS: ALANINE AMINOTRANSFERASE < 6 U/L (0-55); ALBUMIN 3.2 GM/DL (3.2-4.5); ALKALINE PHOSPHATASE 99 U/L (40-136); BILIRUBIN,TOTAL 0.4 MG/DL (0.1-1.0); BUN/CREATININE RATIO 21; CALCIUM 9.8 MG/DL (8.5-10.1); CARBON DIOXIDE 24 MMOL/L (21-32); CHLORIDE 104 MMOL/L (98-107); CREATININE SERUM 0.87 MG/DL (0.60-1.30); GFR ESTIMATED > 60; GLUCOSE 285 MG/DL (70-105); POTASSIUM 4.1 MMOL/L (3.6-5.0); SODIUM 136 MMOL/L (135-145); TOTAL PROTEIN 6.8 GM/DL (6.4-8.2)
== END 2019-04-07 | disposition home or self-care (01) ==
LOC: ONC 09:34
PROVIDERS: ATTEND Internal Medicine Hematology & Oncology
DX: I26.99 Other pulmonary embolism without acute cor pulmonale (principal); C18.6 Malignant neoplasm of descending colon; I10 Essential (primary) hypertension; G20 Parkinson's disease; E11.9 Type 2 diabetes mellitus without complications; E78.00 Pure hypercholesterolemia, unspecified; Z79.4 Long term (current) use of insulin; Z90.49 Acquired absence of other specified parts of digestive tract
CPT/HCPCS: 36415; 80053; 82728; 83540; 85025; 99213

== ENCOUNTER 2019-07-19 14:45 | Outpatient (RCR) | payer OTHER ==
[2019-05-10 14:28] LABS: BASOPHILS % (AUTO) 0 % (0-10); EOSINOPHILS # (AUTO) 0.2 10^3/uL (0.0-0.3); EOSINOPHILS % (AUTO) 2 % (0-10); HEMATOCRIT 36 % (40-54); HEMOGLOBIN 11.2 G/DL (13.3-17.7); LYMPHOCYTES % (AUTO) 24 % (12-44); MEAN CORPUSCULAR HEMOGLOBIN 24 PG (25-34); MEAN CORPUSCULAR HGB CONC 31 G/DL (32-36); MEAN CORPUSCULAR VOLUME 79 FL (80-99); MEAN PLATELET VOLUME 9.7 FL (7.4-10.4); MONOCYTES # (AUTO) 0.6 X 10^3 (0.0-1.0); MONOCYTES % (AUTO) 7 % (0-12); NEUTROPHILS # (AUTO) 5.8 X 10^3 (1.8-7.8); NEUTROPHILS % (AUTO) 68 % (42-75); PLATELET COUNT 296 10^3/uL (130-400); RED CELL DISTRIBUTION WIDTH 16.3 % (10.0-14.5); WHITE BLOOD COUNT 8.5 10^3/uL (4.3-11.0)
[2019-05-10 14:42] LABS: ALANINE AMINOTRANSFERASE < 6 U/L (0-55); ALBUMIN 3.4 GM/DL (3.2-4.5); ALKALINE PHOSPHATASE 101 U/L (40-136); BILIRUBIN,TOTAL 0.4 MG/DL (0.1-1.0); BUN/CREATININE RATIO 19; CALCIUM 9.6 MG/DL (8.5-10.1); CARBON DIOXIDE 27 MMOL/L (21-32); CHLORIDE 103 MMOL/L (98-107); CREATININE SERUM 1.05 MG/DL (0.60-1.30); GFR ESTIMATED > 60; GLUCOSE 233 MG/DL (70-105); POTASSIUM 3.7 MMOL/L (3.6-5.0); SODIUM 136 MMOL/L (135-145); TOTAL PROTEIN 6.7 GM/DL (6.4-8.2)
[~2019-07-19 14:45] MED LIST changes: -TRAZ-190 PO; +TRAZ-227 PO
[2019-07-19 15:04] LABS: BASOPHILS % (AUTO) 0 % (0-10); EOSINOPHILS # (AUTO) 0.1 10^3/uL (0.0-0.3); EOSINOPHILS % (AUTO) 1 % (0-10); HEMATOCRIT 40 % (40-54); HEMOGLOBIN 12.9 G/DL (13.3-17.7); LYMPHOCYTES # (AUTO) 1.4 X 10^3 (1.0-4.0); LYMPHOCYTES % (AUTO) 18 % (12-44); MEAN CORPUSCULAR HEMOGLOBIN 28 PG (25-34); MEAN CORPUSCULAR HGB CONC 32 G/DL (32-36); MEAN CORPUSCULAR VOLUME 88 FL (80-99); MEAN PLATELET VOLUME 9.1 FL (7.4-10.4); MONOCYTES # (AUTO) 0.5 X 10^3 (0.0-1.0); MONOCYTES % (AUTO) 6 % (0-12); NEUTROPHILS # (AUTO) 6.2 X 10^3 (1.8-7.8); NEUTROPHILS % (AUTO) 76 % (42-75); PLATELET COUNT 270 10^3/uL (130-400); RED CELL DISTRIBUTION WIDTH 17.9 % (10.0-14.5); WHITE BLOOD COUNT 8.2 10^3/uL (4.3-11.0)
[2019-07-19 15:31] LABS: ALANINE AMINOTRANSFERASE 7 U/L (0-55); ALBUMIN 3.2 GM/DL (3.2-4.5); ALKALINE PHOSPHATASE 84 U/L (40-136); BILIRUBIN,TOTAL 0.4 MG/DL (0.1-1.0); BUN/CREATININE RATIO 26; CALCIUM 9.5 MG/DL (8.5-10.1); CARBON DIOXIDE 30 MMOL/L (21-32); CHLORIDE 103 MMOL/L (98-107); GFR ESTIMATED > 60; GLUCOSE 214 MG/DL (70-105); POTASSIUM 3.8 MMOL/L (3.6-5.0); SODIUM 138 MMOL/L (135-145); TOTAL PROTEIN 6.2 GM/DL (6.4-8.2)
== END 2019-08-08 | disposition home or self-care (01) ==
LOC: ONC 14:45
PROVIDERS: ATTEND Internal Medicine Hematology & Oncology
DX: I26.99 Other pulmonary embolism without acute cor pulmonale (principal); C18.6 Malignant neoplasm of descending colon; I10 Essential (primary) hypertension; G20 Parkinson's disease; E11.9 Type 2 diabetes mellitus without complications; E78.00 Pure hypercholesterolemia, unspecified; D50.0 Iron deficiency anemia secondary to blood loss (chronic); Z90.49 Acquired absence of other specified parts of digestive tract; Z79.4 Long term (current) use of insulin
CPT/HCPCS: 80053; 82728; 83540; 85025; 99213

== ENCOUNTER 2019-10-12 14:59 | Outpatient (RCR) | payer OTHER ==
[2019-10-12 15:12] LABS: BASOPHILS % (AUTO) 0 % (0-10); EOSINOPHILS # (AUTO) 0.1 10^3/uL (0.0-0.3); EOSINOPHILS % (AUTO) 1 % (0-10); HEMATOCRIT 42 % (40-54); HEMOGLOBIN 14.1 G/DL (13.3-17.7); LYMPHOCYTES # (AUTO) 1.6 X 10^3 (1.0-4.0); LYMPHOCYTES % (AUTO) 16 % (12-44); MEAN CORPUSCULAR HEMOGLOBIN 31 PG (25-34); MEAN CORPUSCULAR HGB CONC 34 G/DL (32-36); MEAN CORPUSCULAR VOLUME 91 FL (80-99); MEAN PLATELET VOLUME 9.2 FL (7.4-10.4); MONOCYTES # (AUTO) 0.8 X 10^3 (0.0-1.0); MONOCYTES % (AUTO) 8 % (0-12); NEUTROPHILS # (AUTO) 7.5 X 10^3 (1.8-7.8); NEUTROPHILS % (AUTO) 75 % (42-75); PLATELET COUNT 266 10^3/uL (130-400); RED CELL DISTRIBUTION WIDTH 13.6 % (10.0-14.5)
[2019-10-12 15:38] LABS: ALANINE AMINOTRANSFERASE < 6 U/L (0-55); ALBUMIN 3.4 GM/DL (3.2-4.5); ALKALINE PHOSPHATASE 110 U/L (40-136); BILIRUBIN,TOTAL 0.5 MG/DL (0.1-1.0); BUN/CREATININE RATIO 22; CALCIUM 10.2 MG/DL (8.5-10.1); CARBON DIOXIDE 26 MMOL/L (21-32); CHLORIDE 103 MMOL/L (98-107); CREATININE SERUM 1.07 MG/DL (0.60-1.30); GFR ESTIMATED > 60; GLUCOSE 249 MG/DL (70-105); SODIUM 138 MMOL/L (135-145); TOTAL PROTEIN 6.9 GM/DL (6.4-8.2)
== END 2020-01-10 | disposition home or self-care (01) ==
LOC: ONC 14:59
PROVIDERS: ATTEND Internal Medicine Hematology & Oncology
DX: I26.99 Other pulmonary embolism without acute cor pulmonale (principal); C18.6 Malignant neoplasm of descending colon; I10 Essential (primary) hypertension; G20 Parkinson's disease; E11.9 Type 2 diabetes mellitus without complications; E78.00 Pure hypercholesterolemia, unspecified; D50.0 Iron deficiency anemia secondary to blood loss (chronic); Z90.49 Acquired absence of other specified parts of digestive tract; Z79.4 Long term (current) use of insulin
CPT/HCPCS: 80053; 82728; 83540; 85025; G0463; 99213

== ENCOUNTER 2020-01-04 05:41 | Outpatient (RCR) | payer OTHER ==
[~2020-01-04] VITALS: Ht 187 cm; Wt 116.8 kg
== END 2020-01-04 14:36 | disposition home or self-care (01) ==
LOC: PREOP 05:41
PROVIDERS: ATTEND Surgery
DX: Z01.818 Encounter for other preprocedural examination (principal)

== ENCOUNTER → 2020-02-28 | Outpatient (CLI) | payer OTHER ==
--- NOTE | 2020-02-28 18:04 | Diagnostic Imaging Report ---
EXAM: Right ankle at 3:36 PM INDICATION: Injury, ankle pain. TECHNIQUE: AP and lateral views were obtained. COMPARISON: There are no prior studies available for comparison. FINDINGS: There is no fracture, dislocation or acute bony abnormality evident. The ankle mortise is not widened and the talar dome is smooth. The soft tissues are unremarkable. IMPRESSION: There is no evidence for an acute bony abnormality. Dictated by: Dictated on workstation # [id number]
== END ==
LOC: RAD FS 15:21
PROVIDERS: ATTEND Family Medicine
DX: S99.911A Unspecified injury of right ankle, initial encounter (principal); G20 Parkinson's disease
CPT/HCPCS: 73600

== ENCOUNTER → 2020-07-26 | Outpatient (CLI) | payer OTHER ==
[2020-07-26 13:42] LABS: BASOPHILS % (AUTO) 0 % (0-10); EOSINOPHILS # (AUTO) 0.1 10^3/uL (0.0-0.3); EOSINOPHILS % (AUTO) 1 % (0-10); HEMATOCRIT 46 % (40-54); HEMOGLOBIN 14.9 g/dL (13.3-17.7); LYMPHOCYTES # (AUTO) 2.1 10^3/uL (1.0-4.0); LYMPHOCYTES % (AUTO) 21 % (12-44); MEAN CORPUSCULAR HEMOGLOBIN 31 pg (25-34); MEAN CORPUSCULAR HGB CONC 33 g/dL (32-36); MEAN CORPUSCULAR VOLUME 94 fL (80-99); MEAN PLATELET VOLUME 9.5 fL (9.0-12.2); MONOCYTES # (AUTO) 0.6 10^3/uL (0.0-1.0); MONOCYTES % (AUTO) 6 % (0-12); NEUTROPHILS # (AUTO) 6.9 10^3/uL (1.8-7.8); NEUTROPHILS % (AUTO) 71 % (42-75); PLATELET COUNT 266 10^3/uL (130-400); WHITE BLOOD COUNT 9.7 10^3/uL (4.3-11.0)
[2020-07-26 13:58] LABS: ALANINE AMINOTRANSFERASE 13 U/L (0-55); ALBUMIN 3.6 GM/DL (3.2-4.5); ALKALINE PHOSPHATASE 114 U/L (40-136); BILIRUBIN,TOTAL 0.6 MG/DL (0.1-1.0); BUN/CREATININE RATIO 19; CALCIUM 9.9 MG/DL (8.5-10.1); CARBON DIOXIDE 23 MMOL/L (21-32); CHLORIDE 104 MMOL/L (98-107); CREATININE SERUM 1.03 MG/DL (0.60-1.30); GFR ESTIMATED > 60; GLUCOSE 244 MG/DL (70-105); POTASSIUM 4.9 MMOL/L (3.6-5.0); SODIUM 137 MMOL/L (135-145)
== END ==
LOC: EDSTATUS 01-11 07:39 → ONC 13:40
PROVIDERS: ATTEND Internal Medicine Hematology & Oncology
DX: C18.6 Malignant neoplasm of descending colon (principal); E11.9 Type 2 diabetes mellitus without complications; I10 Essential (primary) hypertension; C18.7 Malignant neoplasm of sigmoid colon; I26.99 Other pulmonary embolism without acute cor pulmonale; D50.0 Iron deficiency anemia secondary to blood loss (chronic); S42.002A Fracture of unspecified part of left clavicle, initial encounter for closed fracture; S82.002A Unspecified fracture of left patella, initial encounter for closed fracture; Z98.890 Other specified postprocedural states; V89.2XXA Person injured in unspecified motor-vehicle accident, traffic, initial encounter
CPT/HCPCS: 80053; 85025; 99213

== ENCOUNTER 2021-06-12 12:42 | Emergency (ER) | payer OTHER ==
[~2021-06-12] VITALS: Ht 187.9 cm; Wt 116.8 kg
[2021-06-12 13:38] LABS: CLARITY,URINE SL CLOUDY; GLUCOSE, URINE (UA) 2+ (NEGATIVE); KETONES,URINE 1+ (NEGATIVE); LEUKOCYTE ESTERASE ,URINE NEGATIVE (NEGATIVE); NITRITE,URINE NEGATIVE (NEGATIVE); PROTEIN,URINE NEGATIVE (NEGATIVE)
[2021-06-12 14:07] LABS: BACTERIA,URINE NEGATIVE /HPF; BILIRUBIN,URINE 1+ (NEGATIVE); COLOR,URINE DK YELLOW; WBC,URINE 0-2 /HPF
--- NOTE | 2021-06-12 14:38 | Diagnostic Imaging Report ---
PROCEDURE: CT chest without contrast. TECHNIQUE: Multiple contiguous axial images were obtained through the chest without the use of intravenous contrast. Auto Exposure Controls were utilized during the CT exam to meet ALARA standards for radiation dose reduction. INDICATION: Fall and chest injury. COMPARISON: Correlation is made with prior CT chest from 12/16/2018. FINDINGS: No mediastinal hematoma is seen. There is no pericardial or pleural fluid identified. No pneumothorax or pulmonary contusion is identified. There is a fracture involving the left lateral fifth rib. No other rib fractures are seen. Remaining bony structures appear intact. IMPRESSION: Left lateral fifth rib fracture. No other significant abnormality is detected. Dictated by: Dictated on workstation # [id number]
--- NOTE | 2021-06-12 14:43 | Diagnostic Imaging Report ---
PROCEDURE: CT head without contrast. TECHNIQUE: Multiple contiguous axial images were obtained through the brain without the use of intravenous contrast. Auto Exposure Controls were utilized during the CT exam to meet ALARA standards for radiation dose reduction. INDICATION: Fall. Head injury and pain. COMPARISON: CT head without contrast 12/16/2018. FINDINGS: No CT evidence of a territorial infarction. No intracranial hemorrhage, mass effect, hydrocephalus or extra-axial fluid collections. Scalp contusion overlies the left parietal convexity. Osseous structures are intact. Paranasal sinuses and mastoids are clear. IMPRESSION: 1. No acute intracranial CT findings. 2. Small scalp contusion overlying the left parietal convexity. No fractures. Dictated by: Dictated on workstation # [id number]
--- NOTE | 2021-06-12 15:23 | ED Fall/Injury ---
General Chief Complaint: Trauma-Non Activation Stated Complaint: FALL; HEAD INJ Nursing Triage Note: Bilateral rib pain; head injury Source: patient, family Exam Limitations: no limitations History of Present Illness Date Seen by Provider: Jun 12, 2021 Time Seen by Provider: 13:33 Initial Comments Here with report of bilateral rib pain and head injury. Apparently he has Parkinson's disease and has fallen several times over the last few days with most recent fall this afternoon and caused abrasion to the scalp posteriorly. Fell this morning and yesterday and hurt his ribs with left lateral pain and right lateral pain. No abrasions or bruising noted or reported. He is diabetic and states his blood sugars have been around 180. Denies nausea or vomiting. Denies loss of consciousness. Follows with the [facility] out of [place] for his neurology and primary care. He is moving to [place] today. Location Injury Occurred: Home Occurred: just prior to arrival (1 hour ago) Severity: mild Injuries/Pain Location: head, chest Context: lost balance Loss of Consciousness: no loss of consciousness Associated Symptoms (Fall): Chest Pain; No Confusion; Headache; No Muscle Spasms, No Nausea/Vomiting, No Neck Pain, No Shortness of Air, No Slurred Speech Allergies and Home Medications Allergies Coded Allergies: No Known Drug Allergies (Verified , 01/04/20) Patient Home Medication List Home Medication List Reviewed: Yes Acetaminophen (Tylenol Extra Strength) 500 Mg Tablet, 1,000 MG PO Q4H PRN for PAIN-MILD, (Reported) Entered as Reported by: KRZYSZTOF CARMEN on 12/16/18 1011 Alogliptin Benzoate (Alogliptin) 25 Mg Tablet, 25 MG PO DAILY, (Reported) Entered as Reported by: VIKY MOTLEY on 10/28/18 1449 Amantadine HCl (Amantadine) 100 Mg Tablet, 50 MG PO BID, (Reported) Entered as Reported by: VIKY MOTLEY on 10/28/18 1449 Ascorbate Calcium (Vitamin C) 500 Mg Tablet, 500 MG PO DAILY, (Reported) Entered as Reported by: KRZYSZTOF CARMEN on 12/10/18 1609 Atorvastatin Calcium (Atorvastatin Calcium) 80 Mg Tablet, 40 MG PO HS, (Reported) Entered as Reported by: VIKY MOTLEY on 10/28/18 1453 Carbidopa/Levodopa (Carbidopa-Levo ER 50-200 Tab) 1 Each Tablet.er, 1 TAB PO QID, (Reported) Entered as Reported by: VIKY MOTLEY on 10/28/18 1449 Fluticasone Propionate (Fluticasone Propionate) 16 Gm [place].susp, 2 SPRAYS NS DAILY PRN for ALLERGIES, (Reported) Entered as Reported by: KRZYSZTOF CARMEN on 12/11/18 132 Glipizide (Glipizide) 10 Mg Tablet, 10 MG PO BID, (Reported) Entered as Reported by: KRZYSZTOF CAREMN on 12/11/18 132 Hydrochlorothiazide (Hydrochlorothiazide) 12.5 Mg Tablet, 12.5 MG PO DAILY, (Reported) Entered as Reported by: KRZYSZTOF CARMEN on 12/10/18 160 Ibuprofen (Advil) 200 Mg Tablet, 200 MG PO Q4H PRN for PAIN-MILD, (Reported) Entered as Reported by: KRZYSZTOF CARMEN on 12/16/18 1011 Insulin Glargine,Hum.rec.anlog (Lantus Solostar) 100 Unit/1 Ml Insuln.pen, 55 UNIT SQ HS, (Reported) Entered as Reported by: VIKY MOTLEY on 10/28/18 144 Losartan Potassium (Losartan Potassium) 100 Mg Tablet, 100 MG PO HS, (Reported) Entered as Reported by: VIKY MOTLEY on 10/28/18 144 Nicotine Polacrilex (Nicotine Gum) 4 Mg Gum, 4 MG BC Q6H PRN for CHEW CRAVINGS, (Reported) Entered as Reported by: KRZYSZTOF CARMEN on 12/11/18 132 Sildenafil Citrate (Sildenafil Citrate) 100 Mg Tablet, 100 MG PO UD PRN for ED, (Reported) Entered as Reported by: KRZYSZTOF CARMEN on 12/11/18 132 Diane's Wort ([place]'s Wort) 300 Mg Capsule, 300 MG PO HS PRN for SLEEP, (Reported) Entered as Reported by: KRZYSZTOF CARMEN on 12/10/18 1609 Trazodone HCl (Trazodone HCl) 100 Mg Tablet, 100 MG PO HS PRN for SLEEP, (Reported) Entered as Reported by: VIKY MOTLEY on 10/28/18 144 Review of Systems Review of Systems Constitutional: see HPI; No chills, No fever Eyes: No Symptoms Reported Ears, Nose, Mouth, Throat: no symptoms reported Respiratory: No cough, No short of breath; other (Pain to the lateral ribs with deep breathing left greater than right) Cardiovascular: chest pain (See above); No palpitations Gastrointestinal: No abdominal pain, No nausea, No vomiting Genitourinary: no symptoms reported Musculoskeletal: No back pain; muscle pain; No neck pain Skin: change in color (Where insulin dosing is on abdomen but otherwise no traumatic lesions); No rash Psychiatric/Neurological: See HPI Past Xjonvwz-Bjisyw-Cztszw Hx Patient Social History Tobacco Use?: No Use of E-Cig and/or Vaping dev: No Substance use?: No Alcohol Use?: No Immunizations Up To Date Tetanus Booster (TDap): Unknown PED Vaccines UTD: No First/Initial COVID19 Vaccinat: Yes Second COVID19 Vaccination Regulo: Yes COVID19 Vaccine 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: [employer] Seasonal Allergies Seasonal Allergies: No Past Medical History Surgery/Hospitalization HX: DM; HTN; Frequent falls; Surgeries: Yes (lipomas removed from back; R HEMICOLECTOMY) Abdominal, Tonsillectomy Respiratory: Yes Pulmonary Embolism Currently Using CPAP: No Currently Using BIPAP: No Cardiac: Yes High Cholesterol, Hypertension Neurological: Yes Parkinson's Disease Sexually Transmitted Disease: No HIV/AIDS: No Genitourinary: No Gastrointestinal: Yes (colon cancer) Musculoskeletal: Yes Arthritis Endocrine: Yes Diabetes, Non-Insulin dep HEENT: No (cataracts removed) Loss of Vision: Denies Hearing Impairment: Denies Cancer: Yes Colon Did You Recieve Any Treatments: Yes What Type of Treatment Did You: Surgical Intervention Psychosocial: No Integumentary: No Blood Disorders: No Adverse Reaction/Blood Tranf: No (N/A) Family Medical History Reviewed Nursing Family Hx Cardiovascular disease 19 FATHER Completed stroke 19 MOTHER Hypertension 19 FATHER 19 MOTHER Myocardial infarction 19 FATHER Psychosocial problem 19 FATHER Respiratory disorder G8 BROTHER Thyroid disease 19 MOTHER Physical Exam Vital Signs Vital Signs - First Documented 06/12/21 13:04 Temp 36.2 Pulse 80 Resp 16 B/P (MAP) 147/64 (91) Pulse Ox 98 O2 Delivery Room Air Capillary Refill : Less Than 3 Seconds Height, Weight, BMI Height: 6'2.00" Weight: 255lbs. 6.4oz. 115.736541hy; 33.00 BMI Method:Stated General Appearance: WD/WN, no apparent distress HEENT: PERRL/EOMI, pharynx normal, other (Abrasion posterior scalp on the left 2 x 3 cm) Neck: full range of motion, supple, normal inspection Cardiovascular: regular rate, rhythm, no murmur Respiratory: lungs clear, normal breath sounds Gastrointestinal: non tender, soft Back: normal inspection, no CVA tenderness, no vertebral tenderness Extremities: normal inspection, no pedal edema, no calf tenderness, pelvis stable Neurologic/Psychiatric: alert, oriented x 3 Skin: normal color, warm/dry [place] Coma Score Best Eye Response: (4) Open Spontaneously Best Verbal Response: (5) Oriented Best Motor Response: (6) Obeys Commands Progress/Results/Core Measures Results/Orders Lab Results Laboratory Tests Test 06/12/21 13:03 06/12/21 13:43 Range/Units Urine Color DK YELLOW Urine Clarity SL CLOUDY Urine pH 6.0 5-9 Urine Specific [place] 1.020 1.016-1.022 Urine Protein NEGATIVE NEGATIVE Urine Glucose (UA) 2+ H NEGATIVE Urine Ketones 1+ H NEGATIVE Urine Nitrite NEGATIVE NEGATIVE Urine Bilirubin 1+ H NEGATIVE Urine Urobilinogen 1.0 < = 1.0 MG/DL Urine Leukocyte Esterase NEGATIVE NEGATIVE Urine RBC (Auto) NEGATIVE NEGATIVE Urine RBC 2-5 H /HPF Urine WBC 0-2 /HPF Urine Squamous Epithelial Cells NONE /HPF Urine Crystals NONE /LPF Urine Bacteria NEGATIVE /HPF Urine Casts PRESENT /LPF Urine Hyaline Casts 5-10 H /LPF Urine Mucus MODERATE H /LPF Urine Culture Indicated NO Glucometer 220 H 70-110 MG/DL My Orders Orders - RANDY MURPHY MD Ua Culture If Indicated (06/12/21 13:30) Accucheck Stat ONCE (06/12/21 13:41) Ct Head Wo (06/12/21 13:41) Ct Chest Wo (06/12/21 13:41) Vital Signs/I&O 06/12/21 13:04 Temp 36.2 Pulse 80 Resp 16 B/P (MAP) 147/64 (91) Pulse Ox 98 O2 Delivery Room Air Blood Pressure Mean: 91 FSBG Bedside Testing Finger Stick Blood Glucose: 220 Progress Progress Note : Progress Note Seen and evaluated. UA, fingerstick blood sugar and CT head and chest ordered. Monitor patient. 1522: CT results noted. Incentive spirometer given with teaching. Patient will do Tylenol and/or Aleve at home for pain. Did discuss return precautions. We also discussed importance of management of blood sugar and hydration to prevent worsening balance issues. Patient verbalized understanding of instructions and agreement with plan. Diagnostic Imaging Diagonstic Imaging: CT Plain Films/CT/US/NM/MRI: chest Comments [facility] [place] [place] NAME: STEFFANIE KUHN [facility] REC#: [id number] PT STATUS: REG ER : 1945 PHYSICIAN: RANDY MURPHY MD ADMIT DATE: 06/12/21/ER FS Draft Date of Exam:06/12/21 CT CHEST WO PROCEDURE: CT chest without contrast. TECHNIQUE: Multiple contiguous axial images were obtained through the chest without the use of intravenous contrast. Auto Exposure Controls were utilized during the CT exam to meet ALARA standards for radiation dose reduction. INDICATION: Fall and chest injury. COMPARISON: Correlation is made with prior CT chest from 12/16/2018. FINDINGS: No mediastinal hematoma is seen. There is no pericardial or pleural fluid identified. No pneumothorax or pulmonary contusion is identified. There is a fracture involving the left lateral fifth rib. No other rib fractures are seen. Remaining bony structures appear intact. IMPRESSION: Left lateral fifth rib fracture. No other significant abnormality is detected. Dictated on workstation # [id number] Dict: 06/12/21 1433 Trans: 06/12/21 1437 [id number] Interpreted by: JAIME ROSSI MD Electronically signed by: Diagonstic Imaging: CT Plain Films/CT/US/NM/MRI: head Comments [facility] [place] [place] NAME: STEFFANIE KUHN [facility] REC#: [id number] PT STATUS: REG ER : 1945 PHYSICIAN: RANDY MURPHY MD ADMIT DATE: 06/12/21/ER FS Draft Date of Exam:06/12/21 CT HEAD WO PROCEDURE: CT head without contrast. TECHNIQUE: Multiple contiguous axial images were obtained through the brain without the use of intravenous contrast. Auto Exposure Controls were utilized during the CT exam to meet ALARA standards for radiation dose reduction. INDICATION: Fall. Head injury and pain. COMPARISON: CT head without contrast 12/16/2018. FINDINGS: No CT evidence of a territorial infarction. No intracranial hemorrhage, mass effect, hydrocephalus or extra-axial fluid collections. Scalp contusion overlies the left parietal convexity. Osseous structures are intact. Paranasal sinuses and mastoids are clear. IMPRESSION: 1. No acute intracranial CT findings. 2. Small scalp contusion overlying the left parietal convexity. No fractures. Dictated on workstation # [id number] Dict: 06/12/21 1433 Trans: 06/12/21 1443 [facility] [id number] Interpreted by: MARISOL RINCON MD Electronically signed by: Departure Impression Primary Impression: Head injury due to trauma Qualified Codes: S09.90XA - Unspecified injury of head, initial encounter Additional Impressions: Left rib fracture Qualified Codes: S22.32XA - Fracture of one rib, left side, initial encounter for closed fracture Hyperglycemia Disposition: 01 HOME, SELF-CARE Condition: Stable Departure-Patient Inst. Decision time for Depature: 15:22 Referrals: JOSH WHATLEY MD (PCP/Family) Primary Care Physician Patient Instructions: Closed Head Injury (DC), RIB CONTUSION, Rib Fracture (DC) Add. Discharge Instructions: All discharge instructions reviewed with patient and/or family. Voiced understanding. Carefully monitor and manage her blood sugar. Drink plenty of fluids to stay well-hydrated. You may use Tylenol/acetaminophen or Aleve for rib pain. Use incentive spirometer several times an hour while awake. Follow-up with your doctor in a few days for recheck. Return for worse pain, fever, vomiting, weakness, breathing problems or other concerns as needed. Continue home medications as previously prescribed. RANDY MURPHY MD Jun 12, 2021 15:23
[2021-06-12 15:33] VITALS: BP 152/64
== END 2021-06-12 15:33 | disposition home or self-care (01) ==
LOC: EDUNIT# 12:42 → ER FS 12:43
DX: S22.32XA Fracture of one rib, left side, initial encounter for closed fracture (principal); S09.90XA Unspecified injury of head, initial encounter; E11.65 Type 2 diabetes mellitus with hyperglycemia; I10 Essential (primary) hypertension; G20 Parkinson's disease; E78.00 Pure hypercholesterolemia, unspecified; W19.XXXA Unspecified fall, initial encounter
CPT/HCPCS: 70450; 71250; 81000; 82947